=== PATIENT | male | born 1960 | race African-American/Black ===

== ENCOUNTER 2016-10-27 11:08 | Inpatient (IN) | payer OTHER ==
[2016-10-27 12:24] VITALS: BMI 25.8
--- NOTE | 2016-10-27 13:10 | HP ---
CIWA Score - CIWA Score Nausea/Vomitin-No Nausea/No Vomiting Muscle Tremors: 4-Moderate,w/Arms Extend Anxiety: 4-Mod. Anxious/Guarded Agitation: 4-Moderately Restless Paroxysmal Sweats: 1-Minimal Palms Moist Orientation: 0-Oriented Tacttile Disturbances: 3-Moderate Itch/Numb/Burn Auditory Disturbances: 0-None Visual Disturbances: 0-None Headache: 2-Mild CIWA-Ar Total Score: 18 Admission ROS BHS - HPI Chief Complaint: DETOX TX FOR ALCOHOL DEPENDENCE Allergies/Adverse Reactions: Allergies Allergy/AdvReac Type Severity Reaction Status Date / Time No Known Allergies Allergy Verified 10/27/16 12:32 History of Present Illness: 55 Y/O AA/MALE WITH A HX OF ALCOHOL DEPENDENCE SEEKING DETOX TX. PT'S FIRST TIME HERE. Exam Limitations: No Limitations - Ebola screening Have you traveled outside of the country in the last 21 days: No Have you had contact with anyone from an Ebola affected area: No Have you been sick,other than usual withdrawal symptoms: No Do you have a fever: No - Review of Systems Constitutional: Chills, Night Sweats, Changes in sleep EENT: reports: Blurred Vision, Nose Congestion (ALLERGIES--OTC MED), Dental Problems (MISSING TEETH) Respiratory: reports: No Symptoms reported Cardiac: reports: Lightheadedness GI: reports: Diarrhea, Nausea, Vomiting, Indigestion (NO MED) : reports: Frequency Musculoskeletal: reports: Back Pain, Joint Pain, Muscle Pain Integumentary: reports: No Symptoms Reported Neuro: reports: Headache, Tremors, Unsteady Gait, Dizziness Endocrine: reports: No Symptoms Reported Hematology: reports: No Symptoms Reported Psychiatric: reports: Orientated x3, Anxious Other Systems: Reviewed and Negative Patient History - Patient Medical History Hx Anemia: No Hx Asthma: No Hx Chronic Obstructive Pulmonary Disease (COPD): No Hx Cardiac Disorders: No Hx Hypertension: Yes (ON HCTZ) Hx Hypercholesterolemia: No HX Cerebrovascular Accident: No Hx Seizures: No Hx Diabetes: No Hx Gastrointestinal Disorders: Yes (HEARTBURN ON/OFF) Hx Genitourinary Disorders: No Hx Sexually Transmitted Disorders: No (DENIES) Hx Renal Disease (ESRD): No Hx Thyroid Disease: No Hx Human Immunodeficiency Virus (HIV): No (NEGATIVE HX) Hx Hepatitis C: No Hx Depression: No Hx Suicide Attempt: No (DENIES) Hx Schizophrenia: No - Patient Surgical History Past Surgical History: No Hx Neurologic Surgery: No Hx Cataract Extraction: No Hx Cardiac Surgery: No Hx Lung Surgery: No Hx Breast Surgery: No Hx Breast Biopsy: No Hx Abdominal Surgery: No Hx Appendectomy: No Hx Cholecystectomy: No Hx Genitourinary Surgery: No Hx Orthopedic Surgery: No Anesthesia Reaction: No - PPD History Previous Implant?: Yes (HX PPD+ WITH TX -INH FOR 9 MONTHS) Documented Results: Positive w/o proof Implanted On Prior R Admission?: No Results: CXR TBD PPD to be Administered?: No - Reproductive History Patient is a Female of Child Bearing Age (11 -55 yrs old): No (MALE) - Smoking Cessation Smoking history: Current every day smoker Have you smoked in the past 12 months: Yes Aproximately how many cigarettes per day: 10 Hx Chewing Tobacco Use: No Initiated information on smoking cessation: Yes 'Breaking Loose' booklet given: 10/27/16 - Substance & Tx. History Hx Alcohol Use: Yes (VODKA/BEER) Hx Substance Use: Yes (HEROIN) Substance Use Type: Alcohol, Heroin (NEGATIVE TOXICOLOGY TODAY.) Hx Substance Use Treatment: Yes - Substances Abused Heroin Route: Inhalation Frequency: Daily Amount used: 5-6 BAGS Age of first use: 23 Date of Last Use: 10/26/16 Alcohol Route: Oral Frequency: Daily Amount used: 2-3 PINTS/ 2 6PKS BEER Age of first use: 14 Date of Last Use: 10/27/16 Family Disease History - Family Disease History Family Disease History: Other: Father (HTN-), Mother (HTN-) Admission Physical Exam S - Vital Signs Vital Signs: Vital Signs - 24 hr 10/27/16 12:20 Temperature 96.4 F L Pulse Rate 115 H Respiratory 20 Rate Blood Pressure 125/85 - Physical General Appearance: Yes: Moderate Distress, Alcohol on Breath, Irritable, Anxious HEENTM: Yes: EOMI, Normocephalic, LIEN, Pharynx Normal Respiratory: Yes: Chest Non-Tender, Lungs Clear, Normal Breath Sounds, No Respiratory Distress Breast: Yes: Breast Exam Deferred Cardiology: Yes: Regular Rhythm, Regular Rate, S1, S2 Abdominal: Yes: Normal Bowel Sounds, Non Tender, Soft Genitourinary: Yes: Other (N/C) Back: Yes: Within Normal Limits Musculoskeletal: Yes: full range of Motion, Gait Steady Neurological: Yes: metal welder II-XII NML intact, Fully Oriented, Alert Integumentary: Yes: Dry, Warm Lymphatic: Yes: Within Normal Limits - Diagnostic (1) Alcohol dependence with uncomplicated withdrawal Current Visit: Yes Status: Acute (2) Hypertension Current Visit: Yes Status: Acute Qualifiers: Hypertension type: essential hypertension Qualified Code(s): I10 - Essential (primary) hypertension Cleared for Admission [facility] - Detox or Rehab [facility] Level of Care: Medically Managed Detox Regimen/Protocol: Librium [facility] Breath Alcohol Content Breath Alcohol Content: 0 Urine Drug Screen - Results Drug Screen Negative: No Urine Drug Screen Results: BZO-Benzodiazepines
[2016-10-27] MEDS ORDERED: MAG HYDROX/AL HYDROX/SIMETH 30 ML UNIT-DOSE CUP PO PRN (13:19)
[2016-10-27] MEDS ORDERED: MENTHOL/PHENOL 1 EACH UD MM PRN (13:19)
[2016-10-27] MEDS ORDERED: MAGNESIUM CITRATE 300 ML BOTTLE PO PRN (13:19)
[2016-10-27] MEDS ORDERED: P-EPHED 60MG/TRIPROLIDI 2.5MG TABLET PO PRN (13:19)
[2016-10-27] MEDS ORDERED: LOPERAMIDE HCL 2 MG CAPSULE PO PRN (13:19)
[2016-10-27] MEDS ORDERED: guaiFENesin/D-METHORPHAN HB 10 ML UNIT-DOSE CUPS PO PRN (13:19)
[2016-10-27] MEDS ORDERED: MAGNESIUM HYDROX 2400MG/30ML ORAL SUSPENSION 30 ML CUP PO PRN (13:19)
[2016-10-27] MEDS ORDERED: NICOTINE POLACRILEX 2 MG GUM BUC PRN (13:19)
[2016-10-27] MEDS ORDERED: chlordiazePOXIDE HCL 25 MG CAPSULE PO ONE (14:15)
[2016-10-27] MEDS: IBUPROFEN 400 MG TABLET (FP) PO PRN (15:05)
[2016-10-27] MEDS: NICOTINE 14 MG/24 HOURS TOPICAL PATCH TD SCH (15:19)
[2016-10-27] MEDS: chlordiazePOXIDE HCL 25 MG CAPSULE PO SCH ×2 (18:27→23:05)
[2016-10-27 19:25] LABS: URINE APPEARANCE CLEAR; URINE BILIRUBIN NEGATIVE (NEGATIVE); URINE BLOOD NEGATIVE (NEGATIVE); URINE COLOR YELLOW; URINE GLUCOSE (UA) 3+ (NEGATIVE); URINE KETONE NEGATIVE (NEGATIVE); URINE LEUK ESTERASE NEGATIVE (NEGATIVE); URINE NITRITE NEGATIVE (NEGATIVE); URINE PROTEIN NEGATIVE (NEGATIVE); URINE UROBILINOGEN NEGATIVE E.U./dl (0.2-1.0)
[2016-10-27] MEDS: THIAMINE HCL 100 MG TABLET (FP) PO SCH (23:05)
[2016-10-27] MEDS: diphenhydrAMINE HCL 50 MG CAPSULE PO PRN (23:06)
[2016-10-28] MEDS: chlordiazePOXIDE HCL 25 MG CAPSULE PO SCH ×4 (05:38→22:39)
[2016-10-28 10:13] LABS: MCH 33.5 pg (25.7-33.7); MCHC 34.1 g/dl (32.0-35.9); MEAN CELL VOLUME 98.3 fl (80-96); MEAN PLT VOLUME 9.8 fl (7.5-11.1); PLATELET COUNT 198 K/MM3 (134-434); RDW 13.7 % (11.9-15.9); WHITE BLOOD COUNT 8.9 K/mm3 (4.0-10.0)
--- NOTE | 2016-10-28 10:24 | EKG ---
Test Reason : Blood Pressure : / mmHG Vent. Rate : 102 BPM Atrial Rate : 102 BPM P-R Int : 136 ms QRS Dur : 072 ms QT Int : 332 ms P-R-T Axes : 059 -46 032 degrees QTc Int : 432 ms SINUS TACHYCARDIA POSSIBLE LEFT ATRIAL ENLARGEMENT LEFT ANTERIOR FASCICULAR BLOCK INFERIOR INFARCT , AGE UNDETERMINED POSSIBLE ANTERIOR INFARCT , AGE UNDETERMINED ABNORMAL ECG NO PREVIOUS ECGS AVAILABLE Confirmed by SONYA GILL, ELVIS ([id number]) on 10/28/2016 10:24:46 AM Referred By: Confirmed By:ELVIS HASSAN MD
[2016-10-28] MEDS: PRENATAL VITAMINS W/ FOLIC ACID TABLET (FP) PO SCH (10:56)
[2016-10-28] MEDS: NICOTINE 14 MG/24 HOURS TOPICAL PATCH TD SCH (10:56)
[2016-10-28 11:02] LABS: ALK PHOS 82 U/L (45-117); ANION GAP 11 (8-16); BILIRUBIN,TOTAL 0.4 mg/dL (0.2-1.0); CALCIUM 9.9 mg/dL (8.5-10.1); CO2 25 mmol/L (21-32); COCKROFT - GAULT 108.35; CREATININE 0.8 mg/dL (0.7-1.3); GLUCOSE,RANDOM 97 mg/dL (74-106); SGOT/AST 32 U/L (15-37); SGPT/ALT 36 U/L (12-78); TOT PROT 7.2 g/dl (6.4-8.2)
--- NOTE | 2016-10-28 11:48 | PN ---
[facility] CIWA - CIWA Score Nausea/Vomitin-No Nausea/No Vomiting Muscle Tremors: 4-Moderate,w/Arms Extend Anxiety: 3 Agitation: 3 Paroxysmal Sweats: 3 Orientation: 0-Oriented Tacttile Disturbances: 0-None Auditory Disturbances: 0-None Visual Disturbances: 0-None Headache: 0-None Present CIWA-Ar Total Score: 13 BHS Progress Note (SOAP) Subjective: agitation anxiety sweats shakes interrupted sleep Objective: 10/28/16 11:47 Vital Signs Temperature 97.2 F L 10/28/16 09:46 Pulse Rate 102 H 10/28/16 09:46 Respiratory Rate 18 10/28/16 09:46 Blood Pressure 140/97 10/28/16 09:46 O2 Sat by Pulse Oximetry (%) Laboratory Tests 10/27/16 10/28/16 10/28/16 15:00 06:00 06:00 WBC 8.9 RBC 4.10 Hgb 13.8 Hct 40.3 MCV 98.3 H MCHC 34.1 RDW 13.7 Plt Count 198 MPV 9.8 Sodium 142 Potassium 4.3 Chloride 106 Carbon Dioxide 25 Anion Gap 11 BUN 14 Creatinine 0.8 Creat Clearance w eGFR > 60 Random Glucose 97 Calcium 9.9 Total Bilirubin 0.4 AST 32 ALT 36 Alkaline Phosphatase 82 Total Protein 7.2 Albumin 4.0 Urine Color Yellow Urine Appearance Clear Urine pH 5.0 Ur Specific [place] 1.020 Urine Protein Negative Urine Glucose (UA) 3+ H Urine Ketones Negative Urine Blood Negative Urine Nitrite Negative Urine Bilirubin Negative Urine Urobilinogen Negative Ur Leukocyte Esterase Negative RPR Titer 10/28/16 06:00 WBC RBC Hgb Hct MCV MCHC RDW Plt Count MPV Sodium Potassium Chloride Carbon Dioxide Anion Gap BUN Creatinine Creat Clearance w eGFR Random Glucose Calcium Total Bilirubin AST ALT Alkaline Phosphatase Total Protein Albumin Urine Color Urine Appearance Urine pH Ur Specific [place] Urine Protein Urine Glucose (UA) Urine Ketones Urine Blood Urine Nitrite Urine Bilirubin Urine Urobilinogen Ur Leukocyte Esterase RPR Titer Nonreactive awake/alert ambulating no acute distress Assessment: 10/28/16 11:47 withdrawal sx Plan: continue detox increase fluids
[2016-10-28 12:59] LABS: SICKLE CELL SCREEN NEGATIVE (NEGATIVE)
[2016-10-28] MEDS: chlordiazePOXIDE HCL 25 MG CAPSULE PO PRN ×2 (13:34→18:55)
[2016-10-28] MEDS: LISINOPRIL 5 MG TABLET (FP) PO SCH (14:22)
[2016-10-28] MEDS: HYDROCHLOROTHIAZIDE 12.5 MG CAPSULE (FP) PO SCH (14:23)
[2016-10-28] MEDS: ASPIRIN 81 MG CHEWABLE TABLETS PO SCH (14:23)
[2016-10-28] MEDS: ACETAMINOPHEN 325 MG TABLET (FP) PO PRN (17:25)
[2016-10-28] MEDS: THIAMINE HCL 100 MG TABLET (FP) PO SCH (22:37)
[2016-10-28] MEDS: diphenhydrAMINE HCL 50 MG CAPSULE PO PRN (22:39)
[2016-10-28] MEDS: ATORVASTATIN CA 40 MG TABLET (FP) PO SCH (22:39)
[2016-10-29] MEDS: chlordiazePOXIDE HCL 25 MG CAPSULE PO SCH ×2 (05:38→11:05)
[2016-10-29] MEDS: IBUPROFEN 400 MG TABLET (FP) PO PRN ×2 (05:43→18:07)
[2016-10-29] MEDS: ACETAMINOPHEN 325 MG TABLET (FP) PO PRN (09:14)
[2016-10-29] MEDS ORDERED: CYCLOBENZAPRINE HCL 10 MG TABLET (FP) PO ONE (09:52)
[2016-10-29] MEDS: ASPIRIN 81 MG CHEWABLE TABLETS PO SCH (11:05)
[2016-10-29] MEDS: METOPROLOL SUCCINATE 50 MG TAB.SR.24H (FP) PO SCH (11:05)
[2016-10-29] MEDS: LISINOPRIL 5 MG TABLET (FP) PO SCH (11:05)
[2016-10-29] MEDS: PRENATAL VITAMINS W/ FOLIC ACID TABLET (FP) PO SCH (11:05)
[2016-10-29] MEDS: HYDROCHLOROTHIAZIDE 12.5 MG CAPSULE (FP) PO SCH (11:05)
[2016-10-29] MEDS: NICOTINE 14 MG/24 HOURS TOPICAL PATCH TD SCH (11:06)
[2016-10-29] MEDS: cloNIDine HCL 0.1 MG TABLET PO SCH ×2 (11:07→22:16)
--- NOTE | 2016-10-29 11:17 | PN ---
[facility] CIWA - CIWA Score Nausea/Vomitin Muscle Tremors: 3 Anxiety: 3 Agitation: 2 Paroxysmal Sweats: 1-Minimal Palms Moist Orientation: 0-Oriented Tacttile Disturbances: 1-Very Mild Itch/Numbness Auditory Disturbances: 1-Very Mild Visual Disturbances: 1-Very Mild Sensitivity Headache: 2-Mild CIWA-Ar Total Score: 17 BHS Progress Note (SOAP) Subjective: ALERT,IRRITABLE,ANXIOUS,INTERRUPTED SLEEP,TREMOR,PAIN IN THE BODY AND BACK Objective: 10/29/16 11:15 Vital Signs Temperature 98.1 F 10/29/16 09:29 Pulse Rate 116 H 10/29/16 09:29 Respiratory Rate 20 10/29/16 09:29 Blood Pressure 144/91 10/29/16 09:29 O2 Sat by Pulse Oximetry (%) Laboratory Last Values WBC 8.9 K/mm3 (4.0-10.0) 10/28/16 06:00 RBC 4.10 M/mm3 (4.00-5.60) 10/28/16 06:00 Hgb 13.8 GM/dL (11.7-16.9) 10/28/16 06:00 Hct 40.3 % (35.4-49) 10/28/16 06:00 MCV 98.3 fl (80-96) H 10/28/16 06:00 MCHC 34.1 g/dl (32.0-35.9) 10/28/16 06:00 RDW 13.7 % (11.9-15.9) 10/28/16 06:00 Plt Count 198 K/MM3 (134-434) 10/28/16 06:00 MPV 9.8 fl (7.5-11.1) 10/28/16 06:00 Sickle Cell Screen Negative (NEGATIVE) 10/28/16 06:00 Sodium 142 mmol/L (136-145) 10/28/16 06:00 Potassium 4.3 mmol/L (3.5-5.1) 10/28/16 06:00 Chloride 106 mmol/L (98-107) 10/28/16 06:00 Carbon Dioxide 25 mmol/L (21-32) 10/28/16 06:00 Anion Gap 11 (8-16) 10/28/16 06:00 BUN 14 mg/dL (7-18) 10/28/16 06:00 Creatinine 0.8 mg/dL (0.7-1.3) 10/28/16 06:00 Creat Clearance w eGFR > 60 (>60) 10/28/16 06:00 Random Glucose 97 mg/dL (74-106) 10/28/16 06:00 Calcium 9.9 mg/dL (8.5-10.1) 10/28/16 06:00 Total Bilirubin 0.4 mg/dL (0.2-1.0) 10/28/16 06:00 AST 32 U/L (15-37) 10/28/16 06:00 ALT 36 U/L (12-78) 10/28/16 06:00 Alkaline Phosphatase 82 U/L (45-117) 10/28/16 06:00 Total Protein 7.2 g/dl (6.4-8.2) 10/28/16 06:00 Albumin 4.0 g/dl (3.4-5.0) 10/28/16 06:00 Urine Color Yellow 10/27/16 15:00 Urine Appearance Clear 10/27/16 15:00 Urine pH 5.0 (5.0-8.0) 10/27/16 15:00 Ur Specific [place] 1.020 (1.005-1.025) 10/27/16 15:00 Urine Protein Negative (NEGATIVE) 10/27/16 15:00 Urine Glucose (UA) 3+ (NEGATIVE) H 10/27/16 15:00 Urine Ketones Negative (NEGATIVE) 10/27/16 15:00 Urine Blood Negative (NEGATIVE) 10/27/16 15:00 Urine Nitrite Negative (NEGATIVE) 10/27/16 15:00 Urine Bilirubin Negative (NEGATIVE) 10/27/16 15:00 Urine Urobilinogen Negative E.U./dl (0.2-1.0) 10/27/16 15:00 Ur Leukocyte Esterase Negative (NEGATIVE) 10/27/16 15:00 RPR Titer Nonreactive (NONREACTIVE) 10/28/16 06:00 Assessment: 10/29/16 11:16 WITHDRAWAL SYMPTOM Plan: CONTINUE DETOX
[2016-10-29] MEDS: chlordiazePOXIDE 5 MG CAPSULE PO SCH ×2 (18:06→22:17)
[2016-10-29] MEDS: THIAMINE HCL 100 MG TABLET (FP) PO SCH (22:16)
[2016-10-29] MEDS: ATORVASTATIN CA 40 MG TABLET (FP) PO SCH (22:16)
[2016-10-29] MEDS: CYCLOBENZAPRINE HCL 10 MG TABLET (FP) PO PRN (22:17)
[2016-10-29] MEDS: diphenhydrAMINE HCL 50 MG CAPSULE PO PRN (22:17)
[2016-10-30] MEDS: chlordiazePOXIDE 5 MG CAPSULE PO SCH ×2 (06:02→11:06)
[2016-10-30] MEDS: CYCLOBENZAPRINE HCL 10 MG TABLET (FP) PO PRN ×2 (06:06→11:04)
[2016-10-30] MEDS: IBUPROFEN 400 MG TABLET (FP) PO PRN ×2 (06:07→15:28)
[2016-10-30] MEDS: PRENATAL VITAMINS W/ FOLIC ACID TABLET (FP) PO SCH (11:04)
[2016-10-30] MEDS: cloNIDine HCL 0.1 MG TABLET PO SCH ×2 (11:04→22:07)
[2016-10-30] MEDS: ASPIRIN 81 MG CHEWABLE TABLETS PO SCH (11:04)
[2016-10-30] MEDS: NICOTINE 14 MG/24 HOURS TOPICAL PATCH TD SCH (11:05)
[2016-10-30] MEDS: HYDROCHLOROTHIAZIDE 12.5 MG CAPSULE (FP) PO SCH (11:05)
[2016-10-30] MEDS: LISINOPRIL 5 MG TABLET (FP) PO SCH (11:05)
[2016-10-30] MEDS: METOPROLOL SUCCINATE 50 MG TAB.SR.24H (FP) PO SCH (11:07)
--- NOTE | 2016-10-30 11:12 | PN ---
S Progress Note (SOAP) Subjective: ALERT,IRRITABLE,ANXIOUS,INTERRUPTED SLEEP Objective: 10/30/16 11:11 Vital Signs Temperature 98.1 F 10/30/16 10:27 Pulse Rate 102 H 10/30/16 10:27 Respiratory Rate 18 10/30/16 10:27 Blood Pressure 125/90 10/30/16 10:27 O2 Sat by Pulse Oximetry (%) Assessment: 10/30/16 11:11 WITHDRAWAL SYMPTOM Plan: CONTINUE DETOX
[2016-10-30] MEDS: ACETAMINOPHEN 325 MG TABLET (FP) PO PRN (13:23)
[2016-10-30] MEDS: chlordiazePOXIDE HCL 10 MG CAPSULE PO SCH ×2 (20:33→22:07)
[2016-10-30] MEDS: ATORVASTATIN CA 40 MG TABLET (FP) PO SCH (22:07)
[2016-10-30] MEDS: THIAMINE HCL 100 MG TABLET (FP) PO SCH (22:07)
[2016-10-31] MEDS: chlordiazePOXIDE HCL 10 MG CAPSULE PO SCH (05:52)
[2016-10-31] MEDS: IBUPROFEN 400 MG TABLET (FP) PO PRN (05:53)
--- NOTE | 2016-10-31 09:14 | PN ---
S Progress Note (SOAP) Subjective: ALERT,NO COMPLAINT Objective: 10/31/16 09:11 Vital Signs Temperature 96.4 F L 10/31/16 06:00 Pulse Rate 95 H 10/31/16 06:00 Respiratory Rate 18 10/31/16 06:00 Blood Pressure 137/87 10/31/16 06:00 O2 Sat by Pulse Oximetry (%) 10/31/16 09:13 Assessment: 10/31/16 09:11 DETOX COMPLETED.NO WITHDRAWAL SYMPTOM 10/31/16 09:13 Plan: DISCHARGE TODAY,FOLLOW UP WITH AFTER CARE PROGRAM ARRANGEMENT
--- NOTE | 2016-10-31 09:17 | DS ---
[facility] Detox Discharge Summary Admission Date: 10/27/16 Discharge Date: 10/31/16 - History Present History: Alcohol Dependence, Cocaine Dependence, Opioid Dependence Additional Comments: FOLLOW UP WITH AFTER CARE PROGRAM ARRANGEMENT Pertinent Past History: HYPERTENSION - Physical Exam Results Vital Signs: Vital Signs Temperature 96.4 F L 10/31/16 06:00 Pulse Rate 95 H 10/31/16 06:00 Respiratory Rate 18 10/31/16 06:00 Blood Pressure 137/87 10/31/16 06:00 O2 Sat by Pulse Oximetry (%) Pertinent Admission Physical Exam Findings: WITHDRAWAL SYMPTOM - Treatment Hospital Course: Detox Protocol Followed, Detoxed Safely, Responded well, Discharged Condition Good Patient has Accepted a Rehab Referral to: DECLINED - Medication Discharge Medications: Ambulatory Orders Hydrochlorothiazide [Hctz -] 12.5 mg PO DAILY 10/27/16 - AMA Did Patient Leave Against Medical Advice: No
[2016-10-31 10:55] VITALS: BP 128/88; PULSE 96; TEMP 97.3
== END 2016-10-31 10:15 | disposition home or self-care (01) | DRG 773 ==
LOC: YASAS 11:08 → Y6N 14:12
PROVIDERS: ADMIT Internal Medicine Addiction Medicine; ATTEND Internal Medicine Addiction Medicine
PROC: HZ2ZZZZ Detoxification Services for Substance Abuse Treatment (ICD-10-PCS; principal; 2016-10-31)
DX: F11.23 Opioid dependence with withdrawal (principal); F10.230 Alcohol dependence with withdrawal, uncomplicated; I10 Essential (primary) hypertension; R76.11 Nonspecific reaction to tuberculin skin test without active tuberculosis
CPT/HCPCS: 36415; 71020-TC; 80053; 81003; 85027; 85660; 86593; 93005; 93010

== ENCOUNTER 2016-12-01 14:01 | Inpatient (IN) | payer OTHER ==
[2016-12-01 15:17] VITALS: BMI 24.2
--- NOTE | 2016-12-01 16:13 | HP ---
COWS - Scale Resting Pulse: 2= [place] 101-120 Sweatin=Flushed/Facial Moisture Restless Observation: 3= Extraneous Movement Pupil Size: 2= Moderately Dilated Bone or Joint Aches: 2= Severe Diffuse Aches Runny Nose/ Eye Tearin= Runny Nose/Eyes GI Upset > 30mins: 3= Vomiting/Diarrhea Tremor Observation: 2= Slight Tremor Visible Yawning Observation: 2= >3x During Session Anxiety or Irritability: 2=Irritable/Anxious Goose Flesh Skin: 0=Smooth Skin COWS Score: 22 CIWA Score - CIWA Score Nausea/Vomitin Muscle Tremors: 3 Anxiety: 3 Agitation: 3 Paroxysmal Sweats: 2 Orientation: 0-Oriented Tacttile Disturbances: 2-Mild Itch/Numbness/Burn Auditory Disturbances: 2-Mild Harshness/Frighten Visual Disturbances: 2-Mild Sensitivity Headache: 2-Mild CIWA-Ar Total Score: 22 Admission ROS BHS - HPI Chief Complaint: i need help to stop using heroin and alcohol Allergies/Adverse Reactions: Allergies Allergy/AdvReac Type Severity Reaction Status Date / Time No Known Allergies Allergy Verified 12/01/16 16:12 History of Present Illness: thid 55 years old male with heroin and alcohol dependence,seeking detox,last treatment 10/27/16 to 10/31/16 [facility] syncope htn longest period sobriety 12 years Exam Limitations: No Limitations - Ebola screening Have you traveled outside of the country in the last 21 days: No Have you had contact with anyone from an Ebola affected area: No Have you been sick,other than usual withdrawal symptoms: No Do you have a fever: No - Review of Systems Constitutional: Chills, Diaphoresis, Loss of Appetite, Malaise, Night Sweats, Changes in sleep, Weakness, Unintentional Wgt. Loss EENT: reports: Tearing, Nose Congestion Respiratory: reports: No Symptoms reported Cardiac: reports: Palpitations GI: reports: Diarrhea, Nausea, Vomiting, Abdominal cramping : reports: No Symptoms Reported Musculoskeletal: reports: Back Pain, Joint Pain, Muscle Pain, Joint Stiffness Integumentary: reports: Dryness Neuro: reports: Headache, Tremors Endocrine: reports: No Symptoms Reported Hematology: reports: No Symptoms Reported Psychiatric: reports: Depressed (insomnia,depression) Patient History - Patient Medical History Hx Anemia: No Hx Asthma: No Hx Chronic Obstructive Pulmonary Disease (COPD): No Hx Cardiac Disorders: No Hx Hypertension: Yes (ON HCTZ) Hx Hypercholesterolemia: No HX Cerebrovascular Accident: No Hx Seizures: No Hx Diabetes: No Hx Gastrointestinal Disorders: Yes (HEARTBURN ON/OFF) Hx Genitourinary Disorders: No Hx Sexually Transmitted Disorders: No (DENIES) Hx Renal Disease (ESRD): No Hx Thyroid Disease: No Hx Human Immunodeficiency Virus (HIV): No (NEGATIVE HXlast 08/28) Hx Hepatitis C: No Hx Depression: No Hx Suicide Attempt: No (DENIES) Hx Bipolar Disorder: No Hx Schizophrenia: No Other Medical History: no suicidal,no homicidal - Patient Surgical History Past Surgical History: Yes Hx Neurologic Surgery: No Hx Cataract Extraction: No Hx Cardiac Surgery: No Hx Lung Surgery: No Hx Breast Surgery: No Hx Breast Biopsy: No Hx Abdominal Surgery: No Hx Appendectomy: No Hx Cholecystectomy: No Hx Genitourinary Surgery: No Hx Orthopedic Surgery: No Other Surgical History: incioin and drainage of abscess of right groin Anesthesia Reaction: No - PPD History Previous Implant?: Yes Documented Results: Positive w/proof Results: CXR TBD PPD to be Administered?: No - Smoking Cessation Smoking history: Current every day smoker Have you smoked in the past 12 months: Yes Aproximately how many cigarettes per day: 10 Hx Chewing Tobacco Use: No Initiated information on smoking cessation: Yes 'Breaking Loose' booklet given: 12/01/16 - Substance & Tx. History Hx Alcohol Use: Yes Hx Substance Use: Yes Substance Use Type: Alcohol, Heroin Hx Substance Use Treatment: Yes ([facility] 10/27/16 to 10/31/16) - Substances Abused Heroin Route: Inhalation Frequency: Daily Amount used: 3-4 BAGS Age of first use: 36 Date of Last Use: 11/30/16 Alcohol Route: Oral Frequency: Daily Amount used: 2 6PKS BEER/2 PINTS VODKA Age of first use: 36 Date of Last Use: 12/01/16 Family Disease History - Family Disease History Family Disease History: Other: Father (HTN-), Mother (HTN-) Admission Physical Exam BHS - Vital Signs Vital Signs: Vital Signs - 24 hr 12/01/16 15:15 Temperature 97 F L Pulse Rate 110 H Respiratory 20 Rate Blood Pressure 142/88 - Physical General Appearance: Yes: Moderate Distress, Tremorous, Irritable, Sweating, Anxious HEENTM: Yes: Hearing grossly Normal, Normal ENT Inspection, Pharynx Normal Respiratory: Yes: Lungs Clear, Normal Breath Sounds, No Respiratory Distress Neck: Yes: Within Normal Limits, Supple, Trachea in good position Breast: Yes: Within Normal Limits Cardiology: Yes: Tachycardia Abdominal: Yes: Within Normal Limits, Normal Bowel Sounds, Non Tender, Flat, Soft Genitourinary: Yes: Within Normal Limits Back: Yes: Within Normal Limits, Decreased Range of Motion, Muscle Spasm Musculoskeletal: Yes: full range of Motion, Back pain, Joint Stiffness, Muscle Pain Extremities: Yes: Within Normal Limits, Normal Range of Motion, Tremors Neurological: Yes: attraction worker II-XII NML intact, Fully Oriented, Alert, Motor Strength 5/5 Integumentary: Yes: Dry Lymphatic: Yes: Within Normal Limits - Diagnostic (1) Alcohol dependence with uncomplicated withdrawal Current Visit: No Status: Acute (2) Opioid dependence with withdrawal Current Visit: Yes Status: Acute (3) Essential hypertension Current Visit: Yes Status: Acute (4) Syncope Current Visit: Yes Status: Acute (5) Old cerebrovascular accident without late effect Current Visit: Yes Status: Acute (6) Old [place] (myocardial infarction) Current Visit: Yes Status: Acute (7) Positive PPD, treated Current Visit: Yes Status: Acute Cleared for Admission [facility] - Detox or Rehab [facility] Level of Care: Medically Managed Detox Regimen/Protocol: Methadone/Librium [facility] Breath Alcohol Content Breath Alcohol Content: 0.299 Urine Drug Screen - Results Drug Screen Negative: No Urine Drug Screen Results: OPI-Opiates, BZO-Benzodiazepines
[2016-12-01] MEDS ORDERED: MENTHOL/PHENOL 1 EACH UD MM PRN (16:32)
[2016-12-01] MEDS ORDERED: P-EPHED 60MG/TRIPROLIDI 2.5MG TABLET PO PRN (16:32)
[2016-12-01] MEDS ORDERED: guaiFENesin/D-METHORPHAN HB 10 ML UNIT-DOSE CUPS PO PRN (16:32)
[2016-12-01] MEDS ORDERED: LOPERAMIDE HCL 2 MG CAPSULE PO PRN (16:32)
[2016-12-01] MEDS ORDERED: hydrOXYzine PAMOATE 50 MG CAPSULE (FP) PO PRN (16:32)
[2016-12-01] MEDS ORDERED: MAGNESIUM HYDROX 2400MG/30ML ORAL SUSPENSION 30 ML CUP PO PRN (16:32)
[2016-12-01] MEDS ORDERED: MAGNESIUM CITRATE 300 ML BOTTLE PO PRN (16:32)
[2016-12-01] MEDS ORDERED: MAG HYDROX/AL HYDROX/SIMETH 30 ML UNIT-DOSE CUP PO PRN (16:32)
[2016-12-01] MEDS ORDERED: METHADONE HCL 10 MG TABLET (FOR DETOX USE ONLY) PO ONE ×2 (18:15→23:00)
[2016-12-01] MEDS ORDERED: chlordiazePOXIDE HCL 25 MG CAPSULE PO ONE (18:15)
[2016-12-01] MEDS: IBUPROFEN 400 MG TABLET (FP) PO PRN (19:20)
[2016-12-01] MEDS: NICOTINE 21 MG/24 HOURS TOPICAL PATCH TD SCH (19:21)
[2016-12-01] MEDS: chlordiazePOXIDE HCL 25 MG CAPSULE PO SCH (22:12)
[2016-12-01] MEDS: THIAMINE HCL 100 MG TABLET (FP) PO SCH (22:12)
[2016-12-01] MEDS: diphenhydrAMINE HCL 50 MG CAPSULE PO PRN (22:12)
[2016-12-01] MEDS: ACETAMINOPHEN 325 MG TABLET (FP) PO PRN (23:57)
[2016-12-02] MEDS: chlordiazePOXIDE HCL 25 MG CAPSULE PO SCH ×4 (05:22→22:21)
[2016-12-02 07:56] LABS: URINE APPEARANCE CLEAR; URINE BILIRUBIN NEGATIVE (NEGATIVE); URINE BLOOD NEGATIVE (NEGATIVE); URINE COLOR YELLOW; URINE GLUCOSE (UA) NEGATIVE (NEGATIVE); URINE KETONE NEGATIVE (NEGATIVE); URINE LEUK ESTERASE NEGATIVE (NEGATIVE); URINE NITRITE NEGATIVE (NEGATIVE); URINE PROTEIN NEGATIVE (NEGATIVE); URINE UROBILINOGEN NEGATIVE E.U./dl (0.2-1.0)
[2016-12-02 09:51] LABS: MCH 33.8 pg (25.7-33.7); MCHC 33.5 g/dl (32.0-35.9); MEAN CELL VOLUME 100.9 fl (80-96); PLATELET COUNT 155 K/MM3 (134-434); RDW 15.4 % (11.9-15.9); WHITE BLOOD COUNT 4.3 K/mm3 (4.0-10.0)
[2016-12-02] MEDS ORDERED: METHADONE HCL 10 MG TABLET (FOR DETOX USE ONLY) PO SCH (10:00)
[2016-12-02] MEDS: NICOTINE 21 MG/24 HOURS TOPICAL PATCH TD SCH (10:12)
[2016-12-02] MEDS: PRENATAL VITAMINS W/ FOLIC ACID TABLET (FP) PO SCH (10:12)
[2016-12-02] MEDS: HYDROCHLOROTHIAZIDE 12.5 MG CAPSULE (FP) PO SCH (10:13)
[2016-12-02] MEDS: IBUPROFEN 400 MG TABLET (FP) PO PRN ×2 (10:14→17:21)
[2016-12-02 10:17] LABS: ALBUMIN 3.9 g/dl (3.4-5.0); ANION GAP 11 (8-16); BILIRUBIN,TOTAL 0.7 mg/dL (0.2-1.0); CALCIUM 8.8 mg/dL (8.5-10.1); CO2 27 mmol/L (21-32); CREATININE 0.8 mg/dL (0.7-1.3); GLUCOSE,RANDOM 94 mg/dL (74-106); SGOT/AST 28 U/L (15-37); SGPT/ALT 26 U/L (12-78)
[2016-12-02 10:18] LABS: ALK PHOS 78 U/L (45-117); TOT PROT 7.5 g/dl (6.4-8.2)
--- NOTE | 2016-12-02 11:04 | EKG ---
Test Reason : Blood Pressure : / mmHG Vent. Rate : 097 BPM Atrial Rate : 097 BPM P-R Int : 140 ms QRS Dur : 088 ms QT Int : 346 ms P-R-T Axes : 065 -53 057 degrees QTc Int : 439 ms NORMAL SINUS RHYTHM POSSIBLE LEFT ATRIAL ENLARGEMENT LEFT ANTERIOR FASCICULAR BLOCK ABNORMAL ECG WHEN COMPARED WITH ECG OF 27-OCT-2016 14:35, NO SIGNIFICANT CHANGE WAS FOUND Confirmed by ELVIS HASSAN MD ([id number]) on 12/02/2016 11:04:36 AM Referred By: Confirmed By:ELVIS HASSAN MD
--- NOTE | 2016-12-02 11:50 | PN ---
[facility] CIWA - CIWA Score Nausea/Vomitin Muscle Tremors: 4-Moderate,w/Arms Extend Anxiety: 2 Agitation: 2 Paroxysmal Sweats: 3 Orientation: 0-Oriented Tacttile Disturbances: 0-None Auditory Disturbances: 2-Mild Harshness/Frighten Visual Disturbances: 3-Moderate Sensitivity Headache: 0-None Present CIWA-Ar Total Score: 18 BHS COWS - Scale Resting Pulse: 1= [place] 81-100 Sweatin= Chills/Flushing Restless Observation: 1= Difficult to Sit Still Pupil Size: 0= Normal to Room Light Bone or Joint Aches: 2= Severe Diffuse Aches Runny Nose/ Eye Tearin= Nasal Congestion GI Upset > 30mins: 2= Nausea/Diarrhea Tremor Observation of Outstretched Hands: 2= Slight Tremor Visible Yawning Observation: 0= None Anxiety or Irritability: 2=Irritable/Anxious Goose Flesh Skin: 3=Piloerection COWS Score: 15 [facility] Progress Note (SOAP) Subjective: Diarrhea, Interrupted sleep, Tremors, Stomach Cramping, Lower Back Ache. Objective: PT. A & O X 3. NO ACUTE DISTRESS. PT. DENIES CHEST PAIN. 12/02/16 11:49 Vital Signs Temperature 97.5 F L 12/02/16 09:36 Pulse Rate 83 12/02/16 09:36 Respiratory Rate 18 12/02/16 09:36 Blood Pressure 165/105 12/02/16 09:40 O2 Sat by Pulse Oximetry (%) Laboratory Tests 12/01/16 12/02/16 12/02/16 20:30 06:00 06:00 WBC 4.3 D RBC 4.39 Hgb 14.8 Hct 44.3 MCV 100.9 H MCHC 33.5 RDW 15.4 D Plt Count 155 D MPV 10.0 Sodium 146 H Potassium 3.5 Chloride 108 H Carbon Dioxide 27 Anion Gap 11 BUN 8 D Creatinine 0.8 Creat Clearance w eGFR > 60 Random Glucose 94 Calcium 8.8 Total Bilirubin 0.7 D AST 28 ALT 26 D Alkaline Phosphatase 78 Total Protein 7.5 Albumin 3.9 Urine Color Yellow Urine Appearance Clear Urine pH 5.0 Urine Protein Negative Urine Glucose (UA) Negative Urine Ketones Negative Urine Blood Negative Urine Nitrite Negative Urine Bilirubin Negative Urine Urobilinogen Negative Ur Leukocyte Esterase Negative LABS NOTED. Assessment: 12/02/16 11:49 WITHDRAWAL SYMPTOMS. Plan: CONTINUE DETOX. START AMLODIPINE, 10 MG PO DAILY (FIRST DOSE NOW). (PATIENT PREVIOUSLY PRESCRIBED BY OUTSIDE MEDICAL PROVIDER PRIOR TO THIS ADMISSION TO DETOX). CONTINUE TO MONITOR BP.
[2016-12-02] MEDS ORDERED: amLODIPine BESYLATE 10 MG TABLET (FP) PO SCH (12:00)
--- NOTE | 2016-12-02 12:04 | CONSULT ---
[facility] Psychiatric Consult - Data Date of interview: 12/02/16 Admission source: [facility] Identifying data: Mr Painting is a 55 years old Black male, father of 7 children, unemployed on food stamp, homeless Substance Abuse History: Reports history of alcohol and heroin use. He started drinking alcohol at age 15 and using heroin at age 36, Consumes 2 pints of vodka , 2x 6pk of beer and 3-4 bags of heroin daily. Last drink on 12/01/16 & used heroin on 11/30/16 Medical History: Significant for HTN, GERD, +PPD treated, history of CVA & FL and history of surgery for I & D abscess right groin Psychiatric History: Reports that his only psychiatric treatment was in 1985 when he was admitted to [facility] for depression following the of his mother that same year. Claims that he was drinking alcohol and smoking crack cocaine around that time. Told lyric writer that he stayed at [facility] for nearly a year and treated with Coleridge and Haldol. Reports that on discharge, he was referred to substance abuse program in [facility] where he was for nearly a year. Claims that he did not receive psychiatric care while at the program. Denies history of suicidal attempt. At present, reports feeling mildly depressed due to his present situation(homelessness) and sleeping poorly Physical/Sexual Abuse/Trauma History: Denies history of emotional, physical or sexual as well as DV relationship Additional Comment: Reports history of 2 previous misdemeanor arrests on charges og drug possession. Denies being on parole/probation at present Mental Status Exam - Mental Status Exam Alert and Oriented to: Time, Place, Person Cognitive Function: Fair Patient Appearance: Well Groomed Mood: Depressed (mildly depressed because of my situation being homeless) Affect: Appropriate Patient Behavior: Cooperative Speech Pattern: Clear Voice Loudness: Normal Thought Process: Intact, Goal Oriented Hallucinations: Denies Suicidal Ideation: Denies Homicidal Ideation: Denies Insight/Judgement: Poor Sleep: Poorly Appetite: Good Muscle strength/Tone: Normal Gait/Station: Normal Psychiatric Findings - Problem List ([place] 1, 2,3) (1) Alcohol dependence with uncomplicated withdrawal Current Visit: No Status: Acute (2) Opioid dependence with withdrawal Current Visit: Yes Status: Acute (3) Nicotine dependence Current Visit: Yes Status: Acute (4) Major depressive disorder, single episode in full remission Current Visit: Yes Status: Acute (5) Substance induced mood disorder Current Visit: Yes Status: Acute (6) Essential hypertension Current Visit: Yes Status: Acute (7) Old [place] (myocardial infarction) Current Visit: Yes Status: Acute (8) Old cerebrovascular accident without late effect Current Visit: Yes Status: Acute (9) Positive PPD, treated Current Visit: Yes Status: Acute - Initial Treatment Plan Initial Treatment Plan: 1) Start Ambien 10 mg po HS prn for insomnia. 2) Continue inpatient detixification
[2016-12-02] MEDS: chlordiazePOXIDE HCL 25 MG CAPSULE PO PRN ×2 (13:26→19:04)
[2016-12-02] MEDS: amLODIPine BESYLATE 10 MG TABLET (FP) PO SCH (13:26)
[2016-12-02] MEDS: ACETAMINOPHEN 325 MG TABLET (FP) PO PRN (19:02)
[2016-12-02] MEDS: THIAMINE HCL 100 MG TABLET (FP) PO SCH (22:21)
[2016-12-02] MEDS: diphenhydrAMINE HCL 50 MG CAPSULE PO PRN (22:22)
[2016-12-02] MEDS: ZOLPIDEM TARTRATE 10 MG TABLET (PARK CARE ONLY) PO PRN (23:46)
[2016-12-03] MEDS: chlordiazePOXIDE HCL 25 MG CAPSULE PO SCH ×3 (05:47→17:17)
[2016-12-03] MEDS: IBUPROFEN 400 MG TABLET (FP) PO PRN ×3 (05:48→20:29)
[2016-12-03] MEDS: METHADONE HCL 5 MG TABLET (FOR DETOX USE ONLY) PO SCH (10:04)
[2016-12-03] MEDS: HYDROCHLOROTHIAZIDE 12.5 MG CAPSULE (FP) PO SCH (10:04)
[2016-12-03] MEDS: amLODIPine BESYLATE 10 MG TABLET (FP) PO SCH (10:04)
[2016-12-03] MEDS: PRENATAL VITAMINS W/ FOLIC ACID TABLET (FP) PO SCH (10:04)
[2016-12-03] MEDS: NICOTINE 21 MG/24 HOURS TOPICAL PATCH TD SCH (10:05)
[2016-12-03] MEDS: chlordiazePOXIDE HCL 25 MG CAPSULE PO PRN (12:49)
--- NOTE | 2016-12-03 13:17 | PN ---
[facility] CIWA - CIWA Score Nausea/Vomitin-Mild Nausea/No Vomiting Muscle Tremors: 3 Anxiety: 2 Agitation: 2 Paroxysmal Sweats: 3 Orientation: 0-Oriented Tacttile Disturbances: 0-None Auditory Disturbances: 2-Mild Harshness/Frighten Visual Disturbances: 3-Moderate Sensitivity Headache: 0-None Present CIWA-Ar Total Score: 16 [facility] COWS - Scale Resting Pulse: 0= IA 80 or Below Sweatin= Chills/Flushing Restless Observation: 1= Difficult to Sit Still Pupil Size: 0= Normal to Room Light Bone or Joint Aches: 2= Severe Diffuse Aches Runny Nose/ Eye Tearin= Nasal Congestion GI Upset > 30mins: 2= Nausea/Diarrhea Tremor Observation of Outstretched Hands: 2= Slight Tremor Visible Yawning Observation: 1= 1-2x During Session Anxiety or Irritability: 2=Irritable/Anxious Goose Flesh Skin: 3=Piloerection COWS Score: 15 [facility] Progress Note (SOAP) Subjective: Tremors, Stomach Cramping, Diarrhea, Lower Back Ache, Interrupted sleep. Objective: PT. A & O X 3. NO ACUTE DISTRESS. PT. DENIES CHEST PAIN. 12/03/16 13:18 Vital Signs Temperature 96.8 F L 12/03/16 09:46 Pulse Rate 69 12/03/16 09:46 Respiratory Rate 18 12/03/16 09:46 Blood Pressure 155/94 12/03/16 09:46 O2 Sat by Pulse Oximetry (%) Laboratory Tests 12/01/16 12/02/16 12/02/16 20:30 06:00 06:00 WBC 4.3 D RBC 4.39 Hgb 14.8 Hct 44.3 MCV 100.9 H MCHC 33.5 RDW 15.4 D Plt Count 155 D MPV 10.0 Sodium 146 H Potassium 3.5 Chloride 108 H Carbon Dioxide 27 Anion Gap 11 BUN 8 D Creatinine 0.8 Creat Clearance w eGFR > 60 Random Glucose 94 Calcium 8.8 Total Bilirubin 0.7 D AST 28 ALT 26 D Alkaline Phosphatase 78 Total Protein 7.5 Albumin 3.9 Urine Color Yellow Urine Appearance Clear Urine pH 5.0 Ur Specific [place] 1.020 Urine Protein Negative Urine Glucose (UA) Negative Urine Ketones Negative Urine Blood Negative Urine Nitrite Negative Urine Bilirubin Negative Urine Urobilinogen Negative Ur Leukocyte Esterase Negative RPR Titer 12/02/16 06:00 WBC RBC Hgb Hct MCV MCHC RDW Plt Count MPV Sodium Potassium Chloride Carbon Dioxide Anion Gap BUN Creatinine Creat Clearance w eGFR Random Glucose Calcium Total Bilirubin AST ALT Alkaline Phosphatase Total Protein Albumin Urine Color Urine Appearance Urine pH Ur Specific [place] Urine Protein Urine Glucose (UA) Urine Ketones Urine Blood Urine Nitrite Urine Bilirubin Urine Urobilinogen Ur Leukocyte Esterase RPR Titer Nonreactive LABS NOTED. Assessment: 12/03/16 13:19 WITHDRAWAL SYMPTOMS. Plan: CONTINUE DETOX. START LISINOPRIL, 5 MG PO DAILY FOR ELEVATED BP (PRESCRIBED TO PATIENT BY OUTSIDE MEDICAL PROVIDER PRIOR TO DETOX ADMISSION). CONTINUE TO MONITOR BP. ADVISED PATIENT TO FOLLOW-UP WITH [facility] AFTER DISCHARGE FROM DETOX FOR GENERAL MEDICAL ASSESSMENT AND FOR FOLLOW-UP FOR HTN.
[2016-12-03] MEDS: LISINOPRIL 5 MG TABLET (FP) PO SCH (15:01)
[2016-12-03] MEDS: THIAMINE HCL 100 MG TABLET (FP) PO SCH (22:14)
[2016-12-03] MEDS: chlordiazePOXIDE 5 MG CAPSULE PO SCH (22:15)
[2016-12-03] MEDS: ZOLPIDEM TARTRATE 10 MG TABLET (PARK CARE ONLY) PO PRN (22:15)
[2016-12-04] MEDS: diphenhydrAMINE HCL 50 MG CAPSULE PO PRN (02:00)
[2016-12-04] MEDS: chlordiazePOXIDE 5 MG CAPSULE PO SCH ×3 (05:20→17:06)
[2016-12-04] MEDS: IBUPROFEN 400 MG TABLET (FP) PO PRN ×2 (05:22→13:54)
[2016-12-04] MEDS: ACETAMINOPHEN 325 MG TABLET (FP) PO PRN (09:24)
[2016-12-04] MEDS: METHADONE HCL 5 MG TABLET (FOR DETOX USE ONLY) PO SCH (10:14)
[2016-12-04] MEDS: PRENATAL VITAMINS W/ FOLIC ACID TABLET (FP) PO SCH (10:14)
[2016-12-04] MEDS: LISINOPRIL 5 MG TABLET (FP) PO SCH (10:14)
[2016-12-04] MEDS: amLODIPine BESYLATE 10 MG TABLET (FP) PO SCH (10:14)
[2016-12-04] MEDS: HYDROCHLOROTHIAZIDE 12.5 MG CAPSULE (FP) PO SCH (10:14)
[2016-12-04] MEDS: NICOTINE 21 MG/24 HOURS TOPICAL PATCH TD SCH (10:15)
[2016-12-04] MEDS ORDERED: ONDANSETRON *ODT* 4 MG TABLET SL PRN (10:46)
--- NOTE | 2016-12-04 12:44 | PN ---
[facility] Progress Note (SOAP) Subjective: Nausea, Diarrhea, Lower Back Ache, Interrupted sleep, H/A, Sweating, Diarrhea. Objective: PT. A & O X 2 (DISORIENTED ABOUT DAY / DATE). NO ACUTE DISTRESS. 12/04/16 12:42 Vital Signs Temperature 97.9 F 12/04/16 09:47 Pulse Rate 79 12/04/16 09:47 Respiratory Rate 18 12/04/16 09:47 Blood Pressure 120/81 12/04/16 09:47 O2 Sat by Pulse Oximetry (%) Laboratory Tests 12/01/16 12/02/16 12/02/16 20:30 06:00 06:00 WBC 4.3 D RBC 4.39 Hgb 14.8 Hct 44.3 MCV 100.9 H MCHC 33.5 RDW 15.4 D Plt Count 155 D MPV 10.0 Sodium 146 H Potassium 3.5 Chloride 108 H Carbon Dioxide 27 Anion Gap 11 BUN 8 D Creatinine 0.8 Creat Clearance w eGFR > 60 Random Glucose 94 Calcium 8.8 Total Bilirubin 0.7 D AST 28 ALT 26 D Alkaline Phosphatase 78 Total Protein 7.5 Albumin 3.9 Urine Color Yellow Urine Appearance Clear Urine pH 5.0 Ur Specific [place] 1.020 Urine Protein Negative Urine Glucose (UA) Negative Urine Ketones Negative Urine Blood Negative Urine Nitrite Negative Urine Bilirubin Negative Urine Urobilinogen Negative Ur Leukocyte Esterase Negative RPR Titer 12/02/16 06:00 WBC RBC Hgb Hct MCV MCHC RDW Plt Count MPV Sodium Potassium Chloride Carbon Dioxide Anion Gap BUN Creatinine Creat Clearance w eGFR Random Glucose Calcium Total Bilirubin AST ALT Alkaline Phosphatase Total Protein Albumin Urine Color Urine Appearance Urine pH Ur Specific [place] Urine Protein Urine Glucose (UA) Urine Ketones Urine Blood Urine Nitrite Urine Bilirubin Urine Urobilinogen Ur Leukocyte Esterase RPR Titer Nonreactive LABS NOTED. Assessment: 12/04/16 12:43 WITHDRAWAL SYMPTOMS. Plan: CONTINUE DETOX.
--- NOTE | 2016-12-04 17:01 | PN ---
[facility] Progress Note Note: bp 149/95, librium 15 mg given repeat bp two hours after librium 15 mg continue detox
[2016-12-04] MEDS: chlordiazePOXIDE HCL 10 MG CAPSULE PO SCH (22:07)
[2016-12-04] MEDS: ZOLPIDEM TARTRATE 10 MG TABLET (PARK CARE ONLY) PO PRN (22:07)
[2016-12-04] MEDS: THIAMINE HCL 100 MG TABLET (FP) PO SCH (22:07)
[2016-12-05] MEDS: chlordiazePOXIDE HCL 10 MG CAPSULE PO SCH ×3 (05:32→17:18)
[2016-12-05] MEDS: ACETAMINOPHEN 325 MG TABLET (FP) PO PRN (05:32)
[2016-12-05] MEDS ORDERED: METHADONE HCL 10 MG TABLET (FOR DETOX USE ONLY) PO SCH (10:00)
[2016-12-05] MEDS: LISINOPRIL 5 MG TABLET (FP) PO SCH (10:15)
[2016-12-05] MEDS: NICOTINE 21 MG/24 HOURS TOPICAL PATCH TD SCH (10:15)
[2016-12-05] MEDS: amLODIPine BESYLATE 10 MG TABLET (FP) PO SCH (10:15)
[2016-12-05] MEDS: HYDROCHLOROTHIAZIDE 12.5 MG CAPSULE (FP) PO SCH (10:15)
[2016-12-05] MEDS: PRENATAL VITAMINS W/ FOLIC ACID TABLET (FP) PO SCH (10:15)
--- NOTE | 2016-12-05 13:56 | PN ---
[facility] Progress Note (SOAP) Subjective: Tremors, Sweating, Lower Back Ache, Interrupted sleep. Objective: PT. A & O X 2 (DISORIENTED ABOUT DAY / DATE). PT. OBSERVED AMBULATING ON UNIT. NO ACUTE DISTRESS. PATIENT DENIES CHEST PAIN. 12/05/16 13:54 Vital Signs Temperature 97.0 F L 12/05/16 13:47 Pulse Rate 87 12/05/16 13:47 Respiratory Rate 20 12/05/16 13:47 Blood Pressure 146/93 12/05/16 13:47 O2 Sat by Pulse Oximetry (%) Laboratory Tests 12/01/16 12/02/16 12/02/16 20:30 06:00 06:00 WBC 4.3 D RBC 4.39 Hgb 14.8 Hct 44.3 MCV 100.9 H MCHC 33.5 RDW 15.4 D Plt Count 155 D MPV 10.0 Sodium 146 H Potassium 3.5 Chloride 108 H Carbon Dioxide 27 Anion Gap 11 BUN 8 D Creatinine 0.8 Creat Clearance w eGFR > 60 Random Glucose 94 Calcium 8.8 Total Bilirubin 0.7 D AST 28 ALT 26 D Alkaline Phosphatase 78 Total Protein 7.5 Albumin 3.9 Urine Color Yellow Urine Appearance Clear Urine pH 5.0 Ur Specific [place] 1.020 Urine Protein Negative Urine Glucose (UA) Negative Urine Ketones Negative Urine Blood Negative Urine Nitrite Negative Urine Bilirubin Negative Urine Urobilinogen Negative Ur Leukocyte Esterase Negative RPR Titer 12/02/16 06:00 WBC RBC Hgb Hct MCV MCHC RDW Plt Count MPV Sodium Potassium Chloride Carbon Dioxide Anion Gap BUN Creatinine Creat Clearance w eGFR Random Glucose Calcium Total Bilirubin AST ALT Alkaline Phosphatase Total Protein Albumin Urine Color Urine Appearance Urine pH Ur Specific [place] Urine Protein Urine Glucose (UA) Urine Ketones Urine Blood Urine Nitrite Urine Bilirubin Urine Urobilinogen Ur Leukocyte Esterase RPR Titer Nonreactive LABS NOTED. Assessment: 12/05/16 13:55 WITHDRAWAL SYMPTOMS. Plan: CONTINUE DETOX.
[2016-12-05] MEDS: IBUPROFEN 400 MG TABLET (FP) PO PRN (16:23)
[2016-12-05] MEDS: THIAMINE HCL 100 MG TABLET (FP) PO SCH (22:06)
[2016-12-05] MEDS: ZOLPIDEM TARTRATE 10 MG TABLET (PARK CARE ONLY) PO PRN (22:06)
[2016-12-06] MEDS ORDERED: METHADONE HCL 5 MG TABLET (FOR DETOX USE ONLY) PO SCH (06:00)
[2016-12-06] MEDS: IBUPROFEN 400 MG TABLET (FP) PO PRN (07:55)
[2016-12-06] MEDS: NICOTINE 21 MG/24 HOURS TOPICAL PATCH TD SCH (10:15)
[2016-12-06] MEDS: PRENATAL VITAMINS W/ FOLIC ACID TABLET (FP) PO SCH (10:16)
[2016-12-06] MEDS: LISINOPRIL 5 MG TABLET (FP) PO SCH (10:16)
[2016-12-06] MEDS: amLODIPine BESYLATE 10 MG TABLET (FP) PO SCH (10:16)
[2016-12-06] MEDS: HYDROCHLOROTHIAZIDE 12.5 MG CAPSULE (FP) PO SCH (10:27)
[2016-12-06 10:50] VITALS: BP 139/87; PULSE 82; TEMP 97.4
--- NOTE | 2016-12-06 12:31 | DS ---
[facility] Detox Discharge Summary Admission Date: 12/01/16 Discharge Date: 12/06/16 - History Present History: Alcohol Dependence, Opioid Dependence Pertinent Past History: HTN HERD PPD Positive Old NV Old CVA - Physical Exam Results Vital Signs: Vital Signs Temperature 97.4 F L 12/06/16 10:49 Pulse Rate 82 12/06/16 10:49 Respiratory Rate 20 12/06/16 10:49 Blood Pressure 139/87 12/06/16 10:49 O2 Sat by Pulse Oximetry (%) Pertinent Admission Physical Exam Findings: Withdrawal symptoms Laboratory Tests 12/01/16 12/02/16 12/02/16 20:30 06:00 06:00 WBC 4.3 D RBC 4.39 Hgb 14.8 Hct 44.3 MCV 100.9 H MCHC 33.5 RDW 15.4 D Plt Count 155 D MPV 10.0 Sodium 146 H Potassium 3.5 Chloride 108 H Carbon Dioxide 27 Anion Gap 11 BUN 8 D Creatinine 0.8 Creat Clearance w eGFR > 60 Random Glucose 94 Calcium 8.8 Total Bilirubin 0.7 D AST 28 ALT 26 D Alkaline Phosphatase 78 Total Protein 7.5 Albumin 3.9 Urine Color Yellow Urine Appearance Clear Urine pH 5.0 Ur Specific [place] 1.020 Urine Protein Negative Urine Glucose (UA) Negative Urine Ketones Negative Urine Blood Negative Urine Nitrite Negative Urine Bilirubin Negative Urine Urobilinogen Negative Ur Leukocyte Esterase Negative RPR Titer 12/02/16 06:00 WBC RBC Hgb Hct MCV MCHC RDW Plt Count MPV Sodium Potassium Chloride Carbon Dioxide Anion Gap BUN Creatinine Creat Clearance w eGFR Random Glucose Calcium Total Bilirubin AST ALT Alkaline Phosphatase Total Protein Albumin Urine Color Urine Appearance Urine pH Ur Specific [place] Urine Protein Urine Glucose (UA) Urine Ketones Urine Blood Urine Nitrite Urine Bilirubin Urine Urobilinogen Ur Leukocyte Esterase RPR Titer Nonreactive Labs noted - Treatment Hospital Course: Detox Protocol Followed, Detoxed Safely, Responded well, Discharged Condition Good, Rehab Referral Accepted - Medication Discharge Medications: Ambulatory Orders Hydrochlorothiazide [Hctz -] 12.5 mg PO DAILY #30 tab 10/31/16 - Diagnosis (1) Alcohol dependence with uncomplicated withdrawal Status: Acute (2) Essential hypertension Status: Chronic (3) Nicotine dependence Status: Chronic (4) Old NV (myocardial infarction) Status: Chronic (5) Old cerebrovascular accident without late effect Status: Chronic (6) Opioid dependence with withdrawal Status: Acute (7) Positive PPD, treated Status: Chronic (8) GERD (gastroesophageal reflux disease) Status: Chronic - AMA Did Patient Leave Against Medical Advice: No
== END 2016-12-06 12:15 | disposition other institution (70) | DRG 773 ==
LOC: YASAS 14:01 → Y3N 17:52
PROVIDERS: ADMIT Internal Medicine; ATTEND Internal Medicine
PROC: HZ2ZZZZ Detoxification Services for Substance Abuse Treatment (ICD-10-PCS; principal; 2016-12-01)
DX: F11.23 Opioid dependence with withdrawal (principal); F10.230 Alcohol dependence with withdrawal, uncomplicated; F17.210 Nicotine dependence, cigarettes, uncomplicated; F19.24 Other psychoactive substance dependence with psychoactive substance-induced mood disorder; F32.5 Major depressive disorder, single episode, in full remission; I10 Essential (primary) hypertension; I25.2 Old myocardial infarction; R00.0 Tachycardia, unspecified; K21.9 Gastro-esophageal reflux disease without esophagitis; R76.11 Nonspecific reaction to tuberculin skin test without active tuberculosis; Z86.73 Personal history of transient ischemic attack (TIA), and cerebral infarction without residual deficits
CPT/HCPCS: 36415; 80053; 81003; 85027; 86593; 93005; 93010

== ENCOUNTER 2016-12-06 12:24 | Inpatient (IN) | payer OTHER ==
[2016-12-06] MEDS ORDERED: LOPERAMIDE HCL 2 MG CAPSULE PO PRN (13:40)
[2016-12-06] MEDS ORDERED: MAGNESIUM HYDROX 2400MG/30ML ORAL SUSPENSION 30 ML CUP PO PRN (13:40)
[2016-12-06] MEDS ORDERED: MAGNESIUM CITRATE 300 ML BOTTLE PO PRN (13:40)
[2016-12-06] MEDS ORDERED: guaiFENesin/D-METHORPHAN HB 10 ML UNIT-DOSE CUPS PO PRN (13:40)
[2016-12-06] MEDS ORDERED: MAG HYDROX/AL HYDROX/SIMETH 30 ML UNIT-DOSE CUP PO PRN (13:40)
[2016-12-06] MEDS ORDERED: MENTHOL/PHENOL 1 EACH UD MM PRN (13:40)
--- NOTE | 2016-12-06 13:45 | HP ---
[facility] Rehab Assess/Revision - Admission History Admitted to Rehab from: [facility] Date of Admission to Rehab: 12/06/16 - Vital signs Vital Signs: Vital Signs Period Temp Pulse Resp BP Sys/Sánchez Pulse Ox Last 24 Hr 98.3 F 69 16 129/82 - Findings Detox History & Physical reviewed: Yes Concur with findings: Yes Comments/Additional Findings: FOR REHAB PROTOCOL
[2016-12-06] MEDS: P-EPHED 60MG/TRIPROLIDI 2.5MG TABLET PO PRN (17:51)
[2016-12-06] MEDS: hydrOXYzine PAMOATE 50 MG CAPSULE (FP) PO PRN (17:52)
[2016-12-06] MEDS: THIAMINE HCL 100 MG TABLET (FP) PO SCH (21:41)
[2016-12-06] MEDS: diphenhydrAMINE HCL 50 MG CAPSULE PO PRN (21:42)
--- NOTE | 2016-12-07 06:40 | HP ---
Psychiatrist Admission - Data Date of interview: 12/07/16 Admission source: 3N Identifying data: Thhis is the first [facility] admission for this 55 years old Black male, father of 7 children, unemployed on food stamp, homeless Medical History: Significant for HTN, GERD, +PPD treated, history of CVA & SD and history of surgery for I & D abscess right groin. Smokes 10 cigarettes daily Psychiatric History: Reports that his only psychiatric treatment was in 1985 when he was admitted to [facility] [place] for depression following the of his mother that same year. Claims that he was drinking alcohol and smoking crack cocaine around that time. Told chief underwriter that he stayed at [facility] for nearly a year and treated with Makena and Haldol. Reports that on discharge, he was referred to substance abuse program in [facility] where he attended outpatient for nearly a year. Claims that he did not receive psychiatric care while at the program. Denies history of suicidal attempt. At present, reports feeling mildly depressed due to his present situation(homelessness) and sleeping poorly Physical/Sexual Abuse/Trauma History: Denies history of emotional, physical or sexual as well as DV relationship Additional Comment: Reports history of 2 previous misdemeanor arrests on charges og drug possession. Denies being on parole/probation at present Vital Signs: Vital Signs - 24 hr 12/06/16 12/07/16 12/07/16 13:10 00:30 03:30 Temperature 98.3 F Pulse Rate 69 Respiratory 16 20 20 Rate Blood Pressure 129/82 Allergies/Adverse Reactions: Allergies Allergy/AdvReac Type Severity Reaction Status Date / Time No Known Allergies Allergy Verified 12/01/16 16:12 Date of last physical exam: 12/01/16 Concur with the findings of this exam: Yes - Substance Abuse/Tx History Hx Alcohol Use: Yes Hx Substance Use: No Substance Use Type: Alcohol (Started drinking alcohol at age 36, consumes 2 pints of vodka &2x 6Pk of beer daily. Last drink on 12/01/16), Heroin (Started using heroin at age 36, consumes 3-4 bags daily. last used on 11/30/16) Hx Substance Use Treatment: Yes (3 previous inpt detox @[facility]) - Admission Criteria Poor recovery environment: Yes Comorbidities: Yes Lacks judgement: Yes Mental Status Exam - Mental Status Exam Alert and Oriented to: Time, Place, Person Cognitive Function: Fair Patient Appearance: Well Groomed Mood: Depressed Affect: Appropriate Patient Behavior: Cooperative Speech Pattern: Clear Voice Loudness: Normal Thought Process: Intact, Goal Oriented Thought Disorder: Not Present Hallucinations: Denies Suicidal Ideation: Denies Homicidal Ideation: Denies Insight/Judgement: Fair Sleep: Poorly Appetite: Good Muscle strength/Tone: Normal Gait/Station: Normal Psychiatric Findings - Problem List ([place] 1, 2,3) (1) Alcohol dependence Current Visit: Yes Status: Acute (2) Opioid dependence Current Visit: Yes Status: Acute (3) Nicotine dependence Current Visit: No Status: Chronic (4) Major depressive disorder, single episode in full remission Current Visit: No Status: Acute (5) Substance induced mood disorder Current Visit: No Status: Acute (6) Essential hypertension Current Visit: No Status: Chronic (7) GERD (gastroesophageal reflux disease) Current Visit: No Status: Chronic (8) Old [place] (myocardial infarction) Current Visit: No Status: Chronic (9) Positive PPD, treated Current Visit: No Status: Chronic - Initial Treatment Plan Initial Treatment Plan: 1) Belsomra 10 mg po HS prn for insomnia. 2) Monitor progress
[2016-12-07] MEDS ORDERED: PNEUMOC 13-VAL CONJ-DIP CRM/PF 0.5 ML DISP.SYRIN IM ONE (10:00)
[2016-12-07] MEDS: HYDROCHLOROTHIAZIDE 12.5 MG CAPSULE (FP) PO SCH (10:08)
[2016-12-07] MEDS: NICOTINE 21 MG/24 HOURS TOPICAL PATCH TD SCH (10:08)
[2016-12-07] MEDS: PRENATAL VITAMINS W/ FOLIC ACID TABLET (FP) PO SCH (10:08)
[2016-12-07] MEDS ORDERED: PNEUMOCOCCAL 23 VACCINE 0.5 ML VIAL IM ONE (12:00)
[2016-12-07] MEDS: hydrOXYzine PAMOATE 50 MG CAPSULE (FP) PO PRN (12:01)
[2016-12-07] MEDS: IBUPROFEN 400 MG TABLET (FP) PO PRN (21:40)
[2016-12-07] MEDS: diphenhydrAMINE HCL 50 MG CAPSULE PO PRN (21:40)
[2016-12-07] MEDS: THIAMINE HCL 100 MG TABLET (FP) PO SCH (21:40)
[2016-12-07] MEDS ORDERED: SUVOREXANT 10 MG TABLET PO PRN (22:00)
[2016-12-08] MEDS: HYDROCHLOROTHIAZIDE 12.5 MG CAPSULE (FP) PO SCH (09:56)
[2016-12-08] MEDS: NICOTINE 21 MG/24 HOURS TOPICAL PATCH TD SCH (09:56)
[2016-12-08] MEDS: PRENATAL VITAMINS W/ FOLIC ACID TABLET (FP) PO SCH (09:56)
[2016-12-08] MEDS: hydrOXYzine PAMOATE 50 MG CAPSULE (FP) PO PRN ×2 (14:41→19:15)
[2016-12-08] MEDS: THIAMINE HCL 100 MG TABLET (FP) PO SCH (21:24)
[2016-12-08] MEDS: diphenhydrAMINE HCL 50 MG CAPSULE PO PRN (21:25)
[2016-12-09] MEDS: PRENATAL VITAMINS W/ FOLIC ACID TABLET (FP) PO SCH (09:25)
[2016-12-09] MEDS: NICOTINE 21 MG/24 HOURS TOPICAL PATCH TD SCH (09:25)
[2016-12-09] MEDS: HYDROCHLOROTHIAZIDE 12.5 MG CAPSULE (FP) PO SCH (09:25)
[2016-12-09] MEDS: diphenhydrAMINE HCL 50 MG CAPSULE PO PRN (21:03)
[2016-12-09] MEDS: THIAMINE HCL 100 MG TABLET (FP) PO SCH (21:05)
[2016-12-10] MEDS: PRENATAL VITAMINS W/ FOLIC ACID TABLET (FP) PO SCH (09:35)
[2016-12-10] MEDS: NICOTINE 21 MG/24 HOURS TOPICAL PATCH TD SCH (09:35)
[2016-12-10] MEDS: HYDROCHLOROTHIAZIDE 12.5 MG CAPSULE (FP) PO SCH (09:35)
[2016-12-10] MEDS: IBUPROFEN 400 MG TABLET (FP) PO PRN (17:09)
[2016-12-10] MEDS: THIAMINE HCL 100 MG TABLET (FP) PO SCH (21:11)
[2016-12-10] MEDS: P-EPHED 60MG/TRIPROLIDI 2.5MG TABLET PO PRN (21:12)
[2016-12-11] MEDS: NICOTINE 21 MG/24 HOURS TOPICAL PATCH TD SCH (09:54)
[2016-12-11] MEDS: P-EPHED 60MG/TRIPROLIDI 2.5MG TABLET PO PRN ×2 (09:54→21:31)
[2016-12-11] MEDS: IBUPROFEN 400 MG TABLET (FP) PO PRN ×2 (09:55→18:49)
[2016-12-11] MEDS: PRENATAL VITAMINS W/ FOLIC ACID TABLET (FP) PO SCH (09:55)
[2016-12-11] MEDS: HYDROCHLOROTHIAZIDE 12.5 MG CAPSULE (FP) PO SCH (09:55)
[2016-12-11] MEDS: diphenhydrAMINE HCL 50 MG CAPSULE PO PRN (21:30)
[2016-12-11] MEDS: THIAMINE HCL 100 MG TABLET (FP) PO SCH (21:30)
[2016-12-12] MEDS: hydrOXYzine PAMOATE 50 MG CAPSULE (FP) PO PRN (00:47)
[2016-12-12] MEDS: diphenhydrAMINE HCL 50 MG CAPSULE PO PRN ×2 (00:47→21:20)
[2016-12-12] MEDS: HYDROCHLOROTHIAZIDE 12.5 MG CAPSULE (FP) PO SCH (09:36)
[2016-12-12] MEDS: PRENATAL VITAMINS W/ FOLIC ACID TABLET (FP) PO SCH (09:36)
[2016-12-12] MEDS: IBUPROFEN 400 MG TABLET (FP) PO PRN ×3 (09:37→21:19)
[2016-12-12] MEDS: NICOTINE 21 MG/24 HOURS TOPICAL PATCH TD SCH (09:37)
[2016-12-12] MEDS: THIAMINE HCL 100 MG TABLET (FP) PO SCH (21:41)
[2016-12-13] MEDS: PRENATAL VITAMINS W/ FOLIC ACID TABLET (FP) PO SCH (09:36)
[2016-12-13] MEDS: NICOTINE 21 MG/24 HOURS TOPICAL PATCH TD SCH (09:37)
[2016-12-13] MEDS: HYDROCHLOROTHIAZIDE 12.5 MG CAPSULE (FP) PO SCH (09:37)
[2016-12-13] MEDS: IBUPROFEN 400 MG TABLET (FP) PO PRN (09:38)
[2016-12-13] MEDS: THIAMINE HCL 100 MG TABLET (FP) PO SCH (21:32)
[2016-12-13] MEDS: diphenhydrAMINE HCL 50 MG CAPSULE PO PRN (21:33)
[2016-12-14] MEDS: HYDROCHLOROTHIAZIDE 12.5 MG CAPSULE (FP) PO SCH (10:06)
[2016-12-14] MEDS: PRENATAL VITAMINS W/ FOLIC ACID TABLET (FP) PO SCH (10:06)
[2016-12-14] MEDS: NICOTINE 21 MG/24 HOURS TOPICAL PATCH TD SCH (10:06)
[2016-12-14] MEDS: IBUPROFEN 400 MG TABLET (FP) PO PRN ×2 (10:07→21:21)
[2016-12-14] MEDS: ACETAMINOPHEN 325 MG TABLET (FP) PO PRN (15:24)
[2016-12-14] MEDS: THIAMINE HCL 100 MG TABLET (FP) PO SCH (21:21)
[2016-12-14] MEDS: diphenhydrAMINE HCL 50 MG CAPSULE PO PRN (21:21)
[2016-12-15] MEDS: ACETAMINOPHEN 325 MG TABLET (FP) PO PRN (09:47)
[2016-12-15] MEDS: PRENATAL VITAMINS W/ FOLIC ACID TABLET (FP) PO SCH (09:48)
[2016-12-15] MEDS: NICOTINE 21 MG/24 HOURS TOPICAL PATCH TD SCH (09:48)
[2016-12-15] MEDS: HYDROCHLOROTHIAZIDE 12.5 MG CAPSULE (FP) PO SCH (09:48)
[2016-12-15] MEDS: diphenhydrAMINE HCL 50 MG CAPSULE PO PRN (21:13)
[2016-12-15] MEDS: IBUPROFEN 400 MG TABLET (FP) PO PRN (21:14)
[2016-12-15] MEDS: THIAMINE HCL 100 MG TABLET (FP) PO SCH (21:14)
[2016-12-16] MEDS ORDERED: cloNIDine HCL 0.1 MG TABLET PO ONE (06:50)
--- NOTE | 2016-12-16 08:50 | PN ---
S Progress Note Note: HISTORY OF HYPERTENSION,ON AMLODIPINE 10 MGS PO DAILY Vital Signs Temperature 98.6 F 12/16/16 06:29 Pulse Rate 78 12/16/16 06:29 Respiratory Rate 18 12/16/16 06:29 Blood Pressure 159/112 12/16/16 06:29 O2 Sat by Pulse Oximetry (%) TO GIVE AMLODIPINE 10 MGS PO DAILY,HYDROCHOLOROTHIAZIDE 12.5 MG PO DAILY, BP MONITORING
[2016-12-16] MEDS: NICOTINE 21 MG/24 HOURS TOPICAL PATCH TD SCH (09:31)
[2016-12-16] MEDS: PRENATAL VITAMINS W/ FOLIC ACID TABLET (FP) PO SCH (09:31)
[2016-12-16] MEDS: HYDROCHLOROTHIAZIDE 12.5 MG CAPSULE (FP) PO SCH (09:31)
[2016-12-16] MEDS: IBUPROFEN 400 MG TABLET (FP) PO PRN ×2 (09:32→21:05)
[2016-12-16] MEDS: amLODIPine BESYLATE 10 MG TABLET (FP) PO SCH (09:32)
[2016-12-16] MEDS: diphenhydrAMINE HCL 50 MG CAPSULE PO PRN (21:05)
[2016-12-16] MEDS: THIAMINE HCL 100 MG TABLET (FP) PO SCH (21:31)
[2016-12-17] MEDS: PRENATAL VITAMINS W/ FOLIC ACID TABLET (FP) PO SCH (09:35)
[2016-12-17] MEDS: HYDROCHLOROTHIAZIDE 12.5 MG CAPSULE (FP) PO SCH (09:35)
[2016-12-17] MEDS: amLODIPine BESYLATE 10 MG TABLET (FP) PO SCH (09:35)
[2016-12-17] MEDS: IBUPROFEN 400 MG TABLET (FP) PO PRN ×2 (09:35→21:20)
[2016-12-17] MEDS: NICOTINE 21 MG/24 HOURS TOPICAL PATCH TD SCH (09:36)
[2016-12-17] MEDS: THIAMINE HCL 100 MG TABLET (FP) PO SCH (21:19)
[2016-12-17] MEDS: diphenhydrAMINE HCL 50 MG CAPSULE PO PRN (21:19)
[2016-12-18] MEDS: NICOTINE 21 MG/24 HOURS TOPICAL PATCH TD SCH (09:42)
[2016-12-18] MEDS: PRENATAL VITAMINS W/ FOLIC ACID TABLET (FP) PO SCH (09:42)
[2016-12-18] MEDS: HYDROCHLOROTHIAZIDE 12.5 MG CAPSULE (FP) PO SCH (09:42)
[2016-12-18] MEDS: amLODIPine BESYLATE 10 MG TABLET (FP) PO SCH (09:42)
[2016-12-18] MEDS: ACETAMINOPHEN 325 MG TABLET (FP) PO PRN ×2 (09:43→18:27)
[2016-12-18] MEDS: hydrOXYzine PAMOATE 50 MG CAPSULE (FP) PO PRN (12:06)
[2016-12-18] MEDS: THIAMINE HCL 100 MG TABLET (FP) PO SCH (21:16)
[2016-12-18] MEDS: diphenhydrAMINE HCL 50 MG CAPSULE PO PRN (21:17)
[2016-12-18] MEDS: IBUPROFEN 400 MG TABLET (FP) PO PRN (21:19)
[2016-12-19] MEDS ORDERED: HYDROCHLOROTHIAZIDE 12.5 MG CAPSULE (FP) PO SCH ×2 (06:00→06:39)
[2016-12-19] MEDS: HYDROCHLOROTHIAZIDE 12.5 MG CAPSULE (FP) PO SCH (06:48)
[2016-12-19] MEDS: PRENATAL VITAMINS W/ FOLIC ACID TABLET (FP) PO SCH (09:40)
[2016-12-19] MEDS: NICOTINE 21 MG/24 HOURS TOPICAL PATCH TD SCH (09:40)
[2016-12-19] MEDS: amLODIPine BESYLATE 10 MG TABLET (FP) PO SCH (09:40)
[2016-12-19] MEDS: THIAMINE HCL 100 MG TABLET (FP) PO SCH (21:01)
[2016-12-19] MEDS: diphenhydrAMINE HCL 50 MG CAPSULE PO PRN (21:02)
[2016-12-20] MEDS: HYDROCHLOROTHIAZIDE 12.5 MG CAPSULE (FP) PO SCH (06:29)
--- NOTE | 2016-12-20 07:47 | PN ---
S Progress Note Note: Vital Signs Temperature 98.8 F 12/20/16 06:44 Pulse Rate 91 H 12/20/16 06:44 Respiratory Rate 20 12/20/16 06:44 Blood Pressure 151/102 12/20/16 06:44 O2 Sat by Pulse Oximetry (%) WILL ADD LISINOPRIL 5 MGS PO DAILY ASYMPTOMATIC VITAL SIGNS MONITORING
[2016-12-20] MEDS: amLODIPine BESYLATE 10 MG TABLET (FP) PO SCH (09:34)
[2016-12-20] MEDS: LISINOPRIL 5 MG TABLET (FP) PO SCH (09:34)
[2016-12-20] MEDS: NICOTINE 21 MG/24 HOURS TOPICAL PATCH TD SCH (09:34)
[2016-12-20] MEDS: PRENATAL VITAMINS W/ FOLIC ACID TABLET (FP) PO SCH (09:34)
[2016-12-20] MEDS: ACETAMINOPHEN 325 MG TABLET (FP) PO PRN (09:35)
[2016-12-20] MEDS: THIAMINE HCL 100 MG TABLET (FP) PO SCH (21:10)
[2016-12-20] MEDS: diphenhydrAMINE HCL 50 MG CAPSULE PO PRN (21:10)
[2016-12-21] MEDS: HYDROCHLOROTHIAZIDE 12.5 MG CAPSULE (FP) PO SCH (06:40)
[2016-12-21 06:53] VITALS: BP 149/103; PULSE 108; TEMP 98.9
--- NOTE | 2016-12-21 07:29 | PN ---
Psychiatric Progress Note Vital Signs: Vital Signs Period Temp Pulse Resp BP Sys/Sánchez Pulse Ox Last 24 Hr 98.9 F 98-108 18-18 149-153/93-103 Date of Session: 12/21/16 Chief Complaint:: Discharge Note HPI: Patient addressing Alcohol and Opoid Dependence comorbid with Nicotine Dependence and MDd, single episode in full remission ROS: HTN, GERD and +PPD were medically managed Current Medications: Active Medications Generic Name Dose Route Start Last Admin Trade Name Freq PRN Reason Stop Dose Admin Acetaminophen 650 mg 12/06/16 13:40 12/20/16 09:35 Tylenol - PO 650 mg Q4H PRN Administration FEVER OR PAIN Al Hydroxide/Mg Hydroxide 30 ml 12/06/16 13:40 Mylanta Oral Suspension - PO Q6H PRN DYSPEPSIA Amlodipine Besylate 10 mg 12/16/16 10:00 12/20/16 09:34 Norvasc - PO 10 mg DAILY MILIND Administration Diphenhydramine HCl 50 mg 12/06/16 13:40 12/20/16 21:10 Benadryl - PO 50 mg HSMR1 PRN Administration FOR ITCHING Eucalyptus/Menthol/Phenol/Sorbitol 1 each 12/06/16 13:40 Cepastat Lozenge - MM Q4H PRN SORE THROAT Guaifenesin 10 ml 12/06/16 13:40 Robitussin Dm - PO Q6H PRN COUGH Hydrochlorothiazide 12.5 mg 12/19/16 06:45 12/21/16 06:40 Hctz - PO 12.5 mg DAILY@0600 MILIND Administration Hydroxyzine Pamoate 50 mg 12/06/16 13:40 12/18/16 12:06 Vistaril - PO 50 mg Q4H PRN Administration AGITATION Ibuprofen 400 mg 12/06/16 13:40 12/18/16 21:19 Motrin - PO 400 mg Q6H PRN Administration PAIN Lisinopril 5 mg 12/20/16 10:00 12/20/16 09:34 Prinivil PO 5 mg DAILY MILIND Administration Loperamide HCl 4 mg 12/06/16 13:40 Imodium - PO Q6H PRN DIARRHEA Magnesium Hydroxide 30 ml 12/06/16 13:40 Milk Of Magnesia - PO DAILY PRN CONSTIPATION Nicotine 21 mg 12/07/16 10:00 12/20/16 09:34 Nicoderm Patch - TD Not Given DAILY MILIND Multivit/Folic Acid/Iron 1 tab 12/07/16 10:00 12/20/16 09:34 Vitamins (Sjr) - PO 1 tab DAILY MILIND Administration Pseudoephedrine/Triprolidine 1 combo 12/06/16 13:40 12/11/16 21:31 Actifed - PO 1 combo TID PRN Administration NASAL CONGESTION Thiamine HCl 100 mg 12/06/16 22:00 12/20/16 21:10 Vitamin B1 - PO 100 mg HS MILIND Administration Current Side Effect: No Lab tests ordered: Yes Lab tests reviewed: Yes Provider note:: Patient has completed this program today. 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 He is stable for discharge today Total face to face time:: 35 Mental Status Exam - Mental Status Exam Alert and Oriented to: Time, Place, Person Cognitive Function: Fair Patient Appearance: Well Groomed Mood: Hopeful, Euthymic Affect: Appropriate Patient Behavior: Cooperative Speech Pattern: Clear Voice Loudness: Normal Thought Process: Intact, Goal Oriented Thought Disorder: Not Present Hallucinations: Denies Suicidal Ideation: Denies Homicidal Ideation: Denies Insight/Judgement: Fair Sleep: Fair Appetite: Good Muscle strength/Tone: Normal Gait/Station: Normal Psychiatric Treatment Plan - Problem List (1) Alcohol dependence Current Visit: Yes (2) Opioid dependence Current Visit: Yes (3) Nicotine dependence Current Visit: No (4) Major depressive disorder, single episode in full remission Current Visit: No (5) Substance induced mood disorder Current Visit: No (6) Essential hypertension Current Visit: No (7) GERD (gastroesophageal reflux disease) Current Visit: No (8) Old PR (myocardial infarction) Current Visit: No (9) Positive PPD, treated Current Visit: No Initial treatment plan: Patient is discharged today and referred to [facility] for outpatient treatment
[2016-12-21] MEDS: PRENATAL VITAMINS W/ FOLIC ACID TABLET (FP) PO SCH (09:42)
[2016-12-21] MEDS: amLODIPine BESYLATE 10 MG TABLET (FP) PO SCH (09:42)
[2016-12-21] MEDS: LISINOPRIL 5 MG TABLET (FP) PO SCH (09:42)
== END 2016-12-21 09:55 | disposition home or self-care (01) | DRG 772 ==
LOC: YASAS 12:24 → Y3W 12:26
PROVIDERS: ADMIT Psychiatry & Neurology Psychiatry; ATTEND Psychiatry & Neurology Psychiatry
PROC: HZ42ZZZ Group Counseling for Substance Abuse Treatment, Cognitive-Behavioral (ICD-10-PCS; principal; 2016-12-21)
DX: F11.20 Opioid dependence, uncomplicated (principal); F10.230 Alcohol dependence with withdrawal, uncomplicated; F33.9 Major depressive disorder, recurrent, unspecified; F17.210 Nicotine dependence, cigarettes, uncomplicated; R55 Syncope and collapse; I25.2 Old myocardial infarction; Z86.73 Personal history of transient ischemic attack (TIA), and cerebral infarction without residual deficits; K21.9 Gastro-esophageal reflux disease without esophagitis; R76.11 Nonspecific reaction to tuberculin skin test without active tuberculosis
CPT/HCPCS: 90732; G0009

== ENCOUNTER 2017-01-02 10:19 | Inpatient (IN) | payer OTHER ==
[2017-01-02 10:35] VITALS: BMI 25.3
--- NOTE | 2017-01-02 11:02 | HP ---
CIWA Score - CIWA Score Nausea/Vomitin-Int. Nausea w/Dry Heave Muscle Tremors: 4-Moderate,w/Arms Extend Anxiety: 4-Mod. Anxious/Guarded Agitation: 1-Slight > Activity Paroxysmal Sweats: 4-Forehead w/Sweat Beads Orientation: 1-Uncertain about Date Tacttile Disturbances: 1-Very Mild Itch/Numbness Auditory Disturbances: 1-Very Mild Visual Disturbances: 2-Mild Sensitivity Headache: 2-Mild CIWA-Ar Total Score: 24 Admission ROS S - HPI Chief Complaint: I want help, I can't stop, I feel sick Allergies/Adverse Reactions: Allergies Allergy/AdvReac Type Severity Reaction Status Date / Time No Known Allergies Allergy Verified 12/01/16 16:12 History of Present Illness: 56 yo gentleman here for detox from heroin, alcohol however urine tox neg for opiates - will detox from alcohol. Patient was here for detox/rehab and 12/06-03/2017 however currently very shaky, diaphoretic and was sent for detox by [facility] and detox is medically necessary. Exam Limitations: Clinical Condition - Ebola screening Have you traveled outside of the country in the last 21 days: No Have you had contact with anyone from an Ebola affected area: No Have you been sick,other than usual withdrawal symptoms: No Do you have a fever: No - Review of Systems Constitutional: Chills, Loss of Appetite, Malaise, Night Sweats, Changes in sleep, Weakness EENT: reports: Blurred Vision, Nose Congestion Respiratory: reports: No Symptoms reported Cardiac: reports: No Symptoms Reported GI: reports: Poor Appetite, Indigestion : reports: Frequency Musculoskeletal: reports: Back Pain, Muscle Pain Integumentary: reports: Flushing Neuro: reports: Headache, Tremors Endocrine: reports: No Symptoms Reported Hematology: reports: No Symptoms Reported Psychiatric: reports: Judgement Intact, Mood/Affect Appropiate, Anxious Other Systems: Reviewed and Negative Patient History - Patient Medical History Hx Anemia: No Hx Asthma: No Hx Chronic Obstructive Pulmonary Disease (COPD): No Hx Cardiac Disorders: Yes (irregular heartbeat) Hx Hypertension: Yes Hx Hypercholesterolemia: No HX Cerebrovascular Accident: No Hx Seizures: No Hx Diabetes: No Hx Gastrointestinal Disorders: No Hx Genitourinary Disorders: No Hx Sexually Transmitted Disorders: No Hx Renal Disease (ESRD): No Hx Thyroid Disease: No Hx Human Immunodeficiency Virus (HIV): No (NEGATIVE 08/28) Hx Hepatitis C: No Hx Depression: Yes (hx meds in past) Hx Suicide Attempt: No Hx Bipolar Disorder: No Hx Schizophrenia: No - Patient Surgical History Past Surgical History: Yes Hx Neurologic Surgery: No Hx Cataract Extraction: No Hx Cardiac Surgery: No Hx Lung Surgery: No Hx Breast Surgery: No Hx Breast Biopsy: No Hx Abdominal Surgery: No Hx Appendectomy: No Hx Cholecystectomy: No Hx Genitourinary Surgery: No Hx Orthopedic Surgery: No Other Surgical History: incisioin and drainage of abscess of right groin Anesthesia Reaction: No - PPD History Results: CXR TBD - Reproductive History Patient is a Female of Child Bearing Age (11 -55 yrs old): No (male) - Smoking Cessation Smoking history: Current every day smoker Have you smoked in the past 12 months: Yes Aproximately how many cigarettes per day: 10 Hx Chewing Tobacco Use: No Initiated information on smoking cessation: Yes 'Breaking Loose' booklet given: 01/02/17 (give on floor) - Substance & Tx. History Hx Alcohol Use: Yes Hx Substance Use: Yes Substance Use Type: Alcohol, Cocaine, Heroin Hx Substance Use Treatment: Yes (detox, rehab, suboxone) - Substances Abused Alcohol Route: Oral Frequency: Daily Amount used: 4 pints liquor; six pack of 16oz beer Age of first use: 14 Date of Last Use: 01/02/17 Heroin Route: Inhalation Frequency: 3-6 times per week Family Disease History - Family Disease History Family Disease History: Other: Father (HTN-), Mother (HTN-) Admission Physical Exam S - Vital Signs Vital Signs: Vital Signs - 24 hr 01/02/17 10:33 Temperature 96.6 F L Pulse Rate 96 H Respiratory 20 Rate Blood Pressure 168/110 - Physical General Appearance: Yes: Nourished, Appropriately Dressed, Moderate Distress, Tremorous, Sweating, Anxious HEENTM: Yes: Hearing grossly Normal, Normal ENT Inspection, Normocephalic, Normal Voice Respiratory: Yes: Normal Breath Sounds, No Respiratory Distress Neck: Yes: No masses,lesions,Nodules, Supple Breast: Yes: Breast Exam Deferred Cardiology: Yes: Regular Rhythm, Regular Rate Abdominal: Yes: Soft Genitourinary: Yes: Frequency Back: Yes: Normal Inspection Musculoskeletal: Yes: full range of Motion, Gait Steady Extremities: Yes: Normal Inspection, Normal Range of Motion Neurological: Yes: Fully Oriented, Alert, Normal Mood/Affect, Normal Response Integumentary: Yes: Normal Color, Warm Lymphatic: Yes: Within Normal Limits - Diagnostic (1) Alcohol dependence with uncomplicated withdrawal Current Visit: Yes Status: Chronic (2) Hypertension Current Visit: Yes Status: Chronic Qualifiers: Hypertension type: essential hypertension Qualified Code(s): I10 - Essential (primary) hypertension (3) Essential hypertension Current Visit: Yes Status: Chronic (4) Nicotine dependence Current Visit: Yes Status: Chronic (5) Old [place] (myocardial infarction) Current Visit: Yes Status: Chronic (6) Old cerebrovascular accident without late effect Current Visit: Yes Status: Chronic (7) Positive PPD, treated Current Visit: Yes Status: Chronic Cleared for Admission S - Detox or Rehab [facility] Level of Care: Medically Managed Detox Regimen/Protocol: Librium S Breath Alcohol Content Breath Alcohol Content: 0 Urine Drug Screen - Results Drug Screen Negative: No Urine Drug Screen Results: ANCELMO-Cocaine, BZO-Benzodiazepines
[2017-01-02] MEDS ORDERED: MAGNESIUM CITRATE 300 ML BOTTLE PO PRN (14:24)
[2017-01-02] MEDS ORDERED: MAGNESIUM HYDROX 2400MG/30ML ORAL SUSPENSION 30 ML CUP PO PRN (14:24)
[2017-01-02] MEDS ORDERED: LOPERAMIDE HCL 2 MG CAPSULE PO PRN (14:24)
[2017-01-02] MEDS ORDERED: guaiFENesin/D-METHORPHAN HB 10 ML UNIT-DOSE CUPS PO PRN (14:24)
[2017-01-02] MEDS ORDERED: chlordiazePOXIDE HCL 25 MG CAPSULE PO PRN (14:24)
[2017-01-02] MEDS ORDERED: MAG HYDROX/AL HYDROX/SIMETH 30 ML UNIT-DOSE CUP PO PRN (14:24)
[2017-01-02] MEDS ORDERED: diphenhydrAMINE HCL 50 MG CAPSULE PO PRN (14:24)
[2017-01-02] MEDS ORDERED: P-EPHED 60MG/TRIPROLIDI 2.5MG TABLET PO PRN (14:24)
[2017-01-02] MEDS ORDERED: MENTHOL/PHENOL 1 EACH UD MM PRN (14:24)
[2017-01-02] MEDS ORDERED: chlordiazePOXIDE HCL 25 MG CAPSULE PO ONE (15:30)
[2017-01-02] MEDS: LISINOPRIL 5 MG TABLET (FP) PO SCH (18:16)
[2017-01-02] MEDS: NICOTINE 21 MG/24 HOURS TOPICAL PATCH TD SCH (18:17)
[2017-01-02] MEDS: chlordiazePOXIDE HCL 25 MG CAPSULE PO SCH ×2 (18:18→22:47)
[2017-01-02] MEDS ORDERED: ATORVASTATIN CA 40 MG TABLET (FP) ONE (22:46)
[2017-01-02] MEDS: THIAMINE HCL 100 MG TABLET (FP) PO SCH (22:47)
[2017-01-02] MEDS: ATORVASTATIN CA 80 MG TABLET (FP) PO SCH (22:47)
[2017-01-03] MEDS: chlordiazePOXIDE HCL 25 MG CAPSULE PO SCH ×4 (05:21→22:24)
[2017-01-03 10:19] LABS: MCH 33.6 pg (25.7-33.7); MCHC 33.9 g/dl (32.0-35.9); MEAN PLT VOLUME 8.9 fl (7.5-11.1); PLATELET COUNT 114 K/MM3 (134-434); RDW 13.7 % (11.9-15.9); WHITE BLOOD COUNT 5.5 K/mm3 (4.0-10.0)
[2017-01-03 10:21] LABS: URINE APPEARANCE CLEAR; URINE BILIRUBIN NEGATIVE (NEGATIVE); URINE BLOOD NEGATIVE (NEGATIVE); URINE COLOR YELLOW; URINE GLUCOSE (UA) NEGATIVE (NEGATIVE); URINE KETONE TRACE (NEGATIVE); URINE LEUK ESTERASE TRACE (NEGATIVE); URINE NITRITE NEGATIVE (NEGATIVE); URINE PROTEIN NEGATIVE (NEGATIVE); URINE UROBILINOGEN 4.0 E.U/dl mg/dL (0.2-1.0)
[2017-01-03 10:32] LABS: CALCIUM OXALATE CRYSTALS RARE /hpf (NONE SEEN); URINE MUCUS RARE; URINE RBC 1 /hpf (0-3); URINE WBC 4 /hpf (3-5)
[2017-01-03 10:41] LABS: ALBUMIN 3.3 g/dl (3.4-5.0); ANION GAP 8 (8-16); CALCIUM 8.8 mg/dL (8.5-10.1); CO2 28 mmol/L (21-32); CREATININE 0.8 mg/dL (0.7-1.3); GLUCOSE,RANDOM 84 mg/dL (74-106); SGOT/AST 20 U/L (15-37); SGPT/ALT 26 U/L (12-78)
[2017-01-03 10:43] LABS: ALK PHOS 70 U/L (45-117); BILIRUBIN,TOTAL 0.9 mg/dL (0.2-1.0); TOT PROT 6.3 g/dl (6.4-8.2)
[2017-01-03] MEDS: amLODIPine BESYLATE 10 MG TABLET (FP) PO SCH (10:51)
[2017-01-03] MEDS: NICOTINE 21 MG/24 HOURS TOPICAL PATCH TD SCH (10:51)
[2017-01-03] MEDS: HYDROCHLOROTHIAZIDE 12.5 MG CAPSULE (FP) PO SCH (10:51)
[2017-01-03] MEDS: PRENATAL VITAMINS W/ FOLIC ACID TABLET (FP) PO SCH (10:51)
[2017-01-03] MEDS: ASPIRIN 81 MG CHEWABLE TABLETS PO SCH (10:51)
[2017-01-03] MEDS: LISINOPRIL 5 MG TABLET (FP) PO SCH (10:52)
--- NOTE | 2017-01-03 14:24 | PN ---
S CIWA - CIWA Score Nausea/Vomitin Muscle Tremors: 4-Moderate,w/Arms Extend Anxiety: 4-Mod. Anxious/Guarded Agitation: 4-Moderately Restless Paroxysmal Sweats: No Perspiration Orientation: 0-Oriented Tacttile Disturbances: 1-Very Mild Itch/Numbness Auditory Disturbances: 0-None Visual Disturbances: 0-None Headache: 2-Mild CIWA-Ar Total Score: 18 [facility] Progress Note (SOAP) Subjective: Nausea, tremor, chills, sweating, interrupted sleep, anxious Objective: 01/03/17 14:21 Laboratory Tests Last Vital Signs Temp Pulse Resp BP Pulse Ox 97.5 F L 114 H 20 137/94 01/03/17 14:11 01/03/17 14:11 01/03/17 14:11 01/03/17 14:11 Noted with tachycardia Laboratory Tests 01/03/17 01/03/17 01/03/17 07:40 07:40 07:40 WBC 5.5 RBC 4.02 Hgb 13.5 Hct 39.8 MCV 99.0 H MCH 33.6 MCHC 33.9 RDW 13.7 D Plt Count 114 L D MPV 8.9 D Sodium 137 Potassium 3.5 Chloride 101 Carbon Dioxide 28 Anion Gap 8 BUN 11 D Creatinine 0.8 Creat Clearance w eGFR > 60 Random Glucose 84 Calcium 8.8 Total Bilirubin 0.9 D AST 20 D ALT 26 Alkaline Phosphatase 70 Total Protein 6.3 L Albumin 3.3 L Urine Color Urine Appearance Urine pH Ur Specific [place] Urine Protein Urine Glucose (UA) Urine Ketones Urine Blood Urine Nitrite Urine Bilirubin Urine Urobilinogen Ur Leukocyte Esterase Urine RBC Urine WBC Ur Epithelial Cells Calcium Oxalate Crystal Urine Mucus RPR Titer Nonreactive 01/03/17 07:40 WBC RBC Hgb Hct MCV MCH MCHC RDW Plt Count MPV Sodium Potassium Chloride Carbon Dioxide Anion Gap BUN Creatinine Creat Clearance w eGFR Random Glucose Calcium Total Bilirubin AST ALT Alkaline Phosphatase Total Protein Albumin Urine Color Yellow Urine Appearance Clear Urine pH 6.0 Ur Specific [place] 1.020 Urine Protein Negative Urine Glucose (UA) Negative Urine Ketones Trace H Urine Blood Negative Urine Nitrite Negative Urine Bilirubin Negative Urine Urobilinogen 4.0 e.u/dl Ur Leukocyte Esterase Trace Urine RBC 1 Urine WBC 4 Ur Epithelial Cells Rare Calcium Oxalate Crystal Rare Urine Mucus Rare RPR Titer Labs noted Assessment: 01/03/17 14:22 Withdrawal symptoms noted with tachycardia Plan: Continue detox, encouraged to drink lots of water for hydration ambien 10mg PO qhs prn insomnia/interrupted sleep Tachycardia most likely due to withdrawal: encouraged to drink lots of water, continue PRN medication, continue to monitor
[2017-01-03] MEDS ORDERED: ATORVASTATIN CA 40 MG TABLET (FP) ONE (20:53)
[2017-01-03] MEDS: THIAMINE HCL 100 MG TABLET (FP) PO SCH (22:23)
[2017-01-03] MEDS: ATORVASTATIN CA 80 MG TABLET (FP) PO SCH (22:23)
[2017-01-03] MEDS: ZOLPIDEM TARTRATE 5 MG TABLET PO PRN (22:23)
[2017-01-04] MEDS: chlordiazePOXIDE HCL 25 MG CAPSULE PO SCH ×2 (05:34→10:35)
[2017-01-04] MEDS: ASPIRIN 81 MG CHEWABLE TABLETS PO SCH (10:34)
[2017-01-04] MEDS: amLODIPine BESYLATE 10 MG TABLET (FP) PO SCH (10:34)
[2017-01-04] MEDS: LISINOPRIL 5 MG TABLET (FP) PO SCH (10:34)
[2017-01-04] MEDS: HYDROCHLOROTHIAZIDE 12.5 MG CAPSULE (FP) PO SCH (10:34)
[2017-01-04] MEDS: PRENATAL VITAMINS W/ FOLIC ACID TABLET (FP) PO SCH (10:34)
[2017-01-04] MEDS: NICOTINE 21 MG/24 HOURS TOPICAL PATCH TD SCH (10:38)
--- NOTE | 2017-01-04 10:39 | CONSULT ---
[facility] Psychiatric Consult - Data Date of interview: 01/04/17 Admission source: [facility] Identifying data: Readmission to [facility] for this 56 y/o AA male seeking detox treatment on for alcohol,cocaine and heroin dependence.Patient is ,a father of seven,homeless,unemployed and supported on food stamps. Substance Abuse History: Patient endorses alcohol abuse since age 14 (vodka + beer),heroin abuse via snorting and cocaine (smoking).Smokes one pack of cigarettes daily.Last use drugs / alcohol on 01/03/17. Medical History: Remarkable for hypertension,GERD,cardiac issues (past history of myocardial infarction) and antecedent of cerebrovascular accident. Psychiatric History: Patient is a difficult,irritable and unreliable historian.Mr Painting admits to a past psychiatric hospitalization at [facility] (previous records indicate past commitment to [facility] in 1985).Has " no idea " about his diagnosis.No OPD care.Patient denies being on psychotropic medications.It appears that,according to Dr Pena's entry of 12/07/16,the patient was kept for an entire year at [facility] and managed on a regimen of laloperidol + lithium carbonate.No reported history of suicide attempts. Physical/Sexual Abuse/Trauma History: Patient denies. Additional Comment: Urine Drug Screen Results: ANCELMO-Cocaine, BZO- Benzodiazepines.Noted. Mental Status Exam - Mental Status Exam Alert and Oriented to: Time, Place, Person Cognitive Function: Good Patient Appearance: Well Groomed Mood: Irritable Affect: Normal Range Patient Behavior: Passive, Cooperative (marginally) Speech Pattern: Clear Voice Loudness: Normal Thought Process: Goal Oriented Thought Disorder: Not Present Hallucinations: Denies Suicidal Ideation: Denies Homicidal Ideation: Denies Insight/Judgement: Poor Sleep: Well Appetite: Good Muscle strength/Tone: Normal Gait/Station: Normal Psychiatric Findings - Problem List ([place] 1, 2,3) (1) Alcohol dependence with uncomplicated withdrawal Current Visit: Yes Status: Acute (2) Cocaine dependence Current Visit: Yes Status: Acute (3) Nicotine dependence Current Visit: Yes Status: Acute Qualifiers: Nicotine product type: cigarettes Substance use status: uncomplicated Qualified Code(s): F17.210 - Nicotine dependence, cigarettes, uncomplicated (4) Substance induced mood disorder Current Visit: Yes Status: Acute (5) Hypertension Current Visit: Yes Status: Chronic Qualifiers: Hypertension type: essential hypertension Qualified Code(s): I10 - Essential (primary) hypertension (6) Old cerebrovascular accident without late effect Current Visit: Yes Status: Chronic (7) Positive PPD, treated Current Visit: Yes Status: Chronic (8) GERD (gastroesophageal reflux disease) Current Visit: Yes Status: Chronic (9) Old [place] (myocardial infarction) Current Visit: Yes Status: Chronic - Initial Treatment Plan Initial Treatment Plan: Psychoeducation.Detoxification.Observation.
--- NOTE | 2017-01-04 11:33 | EKG ---
Test Reason : Blood Pressure : / mmHG Vent. Rate : 083 BPM Atrial Rate : 083 BPM P-R Int : 140 ms QRS Dur : 090 ms QT Int : 400 ms P-R-T Axes : 070 -14 054 degrees QTc Int : 470 ms NORMAL SINUS RHYTHM POSSIBLE LEFT ATRIAL ENLARGEMENT BORDERLINE ECG WHEN COMPARED WITH ECG OF 01-DEC-2016 18:30, LEFT ANTERIOR FASCICULAR BLOCK IS NO LONGER PRESENT Confirmed by COLTON GILL, MARIELLE ([id number]) on 01/04/2017 11:33:26 AM Referred By: Confirmed By:MARIELLE SEGURA MD
--- NOTE | 2017-01-04 12:19 | PN ---
[facility] CIWA - CIWA Score Nausea/Vomitin-No Nausea/No Vomiting Muscle Tremors: 4-Moderate,w/Arms Extend Anxiety: 3 Agitation: 3 Paroxysmal Sweats: 3 Orientation: 0-Oriented Tacttile Disturbances: 0-None Auditory Disturbances: 2-Mild Harshness/Frighten Visual Disturbances: 2-Mild Sensitivity Headache: 0-None Present CIWA-Ar Total Score: 17 [facility] Progress Note (SOAP) Subjective: Tremors, Diarrhea, Interrupted sleep, Sweating. Objective: PT. A & O X 3, OBSERVED AMBULATING ON UNIT. NO ACUTE DISTRESS. 01/04/17 12:17 Vital Signs Temperature 97.7 F 01/04/17 09:18 Pulse Rate 74 01/04/17 09:18 Respiratory Rate 18 01/04/17 09:18 Blood Pressure 131/93 01/04/17 09:18 O2 Sat by Pulse Oximetry (%) Laboratory Tests 01/03/17 01/03/17 01/03/17 07:40 07:40 07:40 WBC 5.5 RBC 4.02 Hgb 13.5 Hct 39.8 MCV 99.0 H MCH 33.6 MCHC 33.9 RDW 13.7 D Plt Count 114 L D MPV 8.9 D Sodium 137 Potassium 3.5 Chloride 101 Carbon Dioxide 28 Anion Gap 8 BUN 11 D Creatinine 0.8 Creat Clearance w eGFR > 60 Random Glucose 84 Calcium 8.8 Total Bilirubin 0.9 D AST 20 D ALT 26 Alkaline Phosphatase 70 Total Protein 6.3 L Albumin 3.3 L Urine Color Urine Appearance Urine pH Ur Specific [place] Urine Protein Urine Glucose (UA) Urine Ketones Urine Blood Urine Nitrite Urine Bilirubin Urine Urobilinogen Ur Leukocyte Esterase Urine RBC Urine WBC Ur Epithelial Cells Calcium Oxalate Crystal Urine Mucus RPR Titer Nonreactive 01/03/17 07:40 WBC RBC Hgb Hct MCV MCH MCHC RDW Plt Count MPV Sodium Potassium Chloride Carbon Dioxide Anion Gap BUN Creatinine Creat Clearance w eGFR Random Glucose Calcium Total Bilirubin AST ALT Alkaline Phosphatase Total Protein Albumin Urine Color Yellow Urine Appearance Clear Urine pH 6.0 Ur Specific [place] 1.020 Urine Protein Negative Urine Glucose (UA) Negative Urine Ketones Trace H Urine Blood Negative Urine Nitrite Negative Urine Bilirubin Negative Urine Urobilinogen 4.0 e.u/dl Ur Leukocyte Esterase Trace Urine RBC 1 Urine WBC 4 Ur Epithelial Cells Rare Calcium Oxalate Crystal Rare Urine Mucus Rare RPR Titer LABS NOTED. Assessment: 01/04/17 12:18 WITHDRAWAL SYMPTOMS. Plan: CONTINUE DETOX.
[2017-01-04] MEDS: ACETAMINOPHEN 325 MG TABLET (FP) PO PRN (15:24)
[2017-01-04] MEDS: chlordiazePOXIDE 5 MG CAPSULE PO SCH ×2 (17:09→22:23)
[2017-01-04] MEDS: ZOLPIDEM TARTRATE 5 MG TABLET PO PRN (22:22)
[2017-01-04] MEDS: THIAMINE HCL 100 MG TABLET (FP) PO SCH (22:23)
[2017-01-04] MEDS: ATORVASTATIN CA 80 MG TABLET (FP) PO SCH (22:23)
[2017-01-05] MEDS: chlordiazePOXIDE 5 MG CAPSULE PO SCH ×2 (05:58→10:35)
[2017-01-05] MEDS: NICOTINE 21 MG/24 HOURS TOPICAL PATCH TD SCH (10:33)
[2017-01-05] MEDS: amLODIPine BESYLATE 10 MG TABLET (FP) PO SCH (10:33)
[2017-01-05] MEDS: HYDROCHLOROTHIAZIDE 12.5 MG CAPSULE (FP) PO SCH (10:34)
[2017-01-05] MEDS: LISINOPRIL 5 MG TABLET (FP) PO SCH (10:34)
[2017-01-05] MEDS: ASPIRIN 81 MG CHEWABLE TABLETS PO SCH (10:34)
[2017-01-05] MEDS: hydrOXYzine PAMOATE 50 MG CAPSULE (FP) PO PRN ×2 (10:34→16:45)
[2017-01-05] MEDS: PRENATAL VITAMINS W/ FOLIC ACID TABLET (FP) PO SCH (10:34)
--- NOTE | 2017-01-05 11:29 | PN ---
[facility] CIWA - CIWA Score Nausea/Vomitin-No Nausea/No Vomiting Muscle Tremors: 5 Anxiety: 5 Agitation: 4-Moderately Restless Paroxysmal Sweats: 1-Minimal Palms Moist Orientation: 0-Oriented Tacttile Disturbances: 3-Moderate Itch/Numb/Burn Auditory Disturbances: 0-None Visual Disturbances: 0-None Headache: 0-None Present CIWA-Ar Total Score: 18 [facility] Progress Note (SOAP) Subjective: ANXIETY,TREMORS,IRRITABILITY,SWEATS,INTERMITTENT SLEEP,'URGE TO GO OUT AND DRINK '. REQUESTING TO SEE THE PSYCH MD TODAYS FOR INSOMNIA. Objective: 01/05/17 11:29 Vital Signs Temperature 99.3 F 01/05/17 09:34 Pulse Rate 105 H 01/05/17 09:34 Respiratory Rate 16 01/05/17 09:34 Blood Pressure 137/92 01/05/17 09:34 O2 Sat by Pulse Oximetry (%) Laboratory Last Values WBC 5.5 K/mm3 (4.0-10.0) 01/03/17 07:40 RBC 4.02 M/mm3 (4.00-5.60) 01/03/17 07:40 Hgb 13.5 GM/dL (11.7-16.9) 01/03/17 07:40 Hct 39.8 % (35.4-49) 01/03/17 07:40 MCV 99.0 fl (80-96) H 01/03/17 07:40 MCH 33.6 pg (25.7-33.7) 01/03/17 07:40 MCHC 33.9 g/dl (32.0-35.9) 01/03/17 07:40 RDW 13.7 % (11.9-15.9) D 01/03/17 07:40 Plt Count 114 K/MM3 (134-434) L D 01/03/17 07:40 MPV 8.9 fl (7.5-11.1) D 01/03/17 07:40 Sodium 137 mmol/L (136-145) 01/03/17 07:40 Potassium 3.5 mmol/L (3.5-5.1) 01/03/17 07:40 Chloride 101 mmol/L (98-107) 01/03/17 07:40 Carbon Dioxide 28 mmol/L (21-32) 01/03/17 07:40 Anion Gap 8 (8-16) 01/03/17 07:40 BUN 11 mg/dL (7-18) D 01/03/17 07:40 Creatinine 0.8 mg/dL (0.7-1.3) 01/03/17 07:40 Creat Clearance w eGFR > 60 (>60) 01/03/17 07:40 Random Glucose 84 mg/dL (74-106) 01/03/17 07:40 Calcium 8.8 mg/dL (8.5-10.1) 01/03/17 07:40 Total Bilirubin 0.9 mg/dL (0.2-1.0) D 01/03/17 07:40 AST 20 U/L (15-37) D 01/03/17 07:40 ALT 26 U/L (12-78) 01/03/17 07:40 Alkaline Phosphatase 70 U/L (45-117) 01/03/17 07:40 Total Protein 6.3 g/dl (6.4-8.2) L 01/03/17 07:40 Albumin 3.3 g/dl (3.4-5.0) L 01/03/17 07:40 Urine Color Yellow 01/03/17 07:40 Urine Appearance Clear 01/03/17 07:40 Urine pH 6.0 (5.0-8.0) 01/03/17 07:40 Ur Specific [place] 1.020 (1.005-1.025) 01/03/17 07:40 Urine Protein Negative (NEGATIVE) 01/03/17 07:40 Urine Glucose (UA) Negative (NEGATIVE) 01/03/17 07:40 Urine Ketones Trace (NEGATIVE) H 01/03/17 07:40 Urine Blood Negative (NEGATIVE) 01/03/17 07:40 Urine Nitrite Negative (NEGATIVE) 01/03/17 07:40 Urine Bilirubin Negative (NEGATIVE) 01/03/17 07:40 Urine Urobilinogen 4.0 e.u/dl mg/dL (0.2-1.0) 01/03/17 07:40 Ur Leukocyte Esterase Trace (NEGATIVE) 01/03/17 07:40 Urine RBC 1 /hpf (0-3) 01/03/17 07:40 Urine WBC 4 /hpf (3-5) 01/03/17 07:40 Ur Epithelial Cells Rare /hpf (FEW) 01/03/17 07:40 Calcium Oxalate Crystal Rare /hpf (NONE SEEN) 01/03/17 07:40 Urine Mucus Rare 01/03/17 07:40 RPR Titer Nonreactive (NONREACTIVE) 01/03/17 07:40 Assessment: 01/05/17 11:29 WITHDRAWAL SX Plan: CONTINUE DETOX SEN BY MYNOR GILL TODAY.
[2017-01-05] MEDS ORDERED: chlordiazePOXIDE HCL 25 MG CAPSULE PO ONE (14:30)
[2017-01-05 17:11] LABS: URINE APPEARANCE CLEAR; URINE BILIRUBIN NEGATIVE (NEGATIVE); URINE BLOOD NEGATIVE (NEGATIVE); URINE COLOR LTYELLOW; URINE GLUCOSE (UA) NEGATIVE (NEGATIVE); URINE KETONE NEGATIVE (NEGATIVE); URINE LEUK ESTERASE NEGATIVE (NEGATIVE); URINE NITRITE NEGATIVE (NEGATIVE); URINE PROTEIN NEGATIVE (NEGATIVE); URINE UROBILINOGEN NEGATIVE mg/dL (0.2-1.0)
[2017-01-05] MEDS: chlordiazePOXIDE HCL 10 MG CAPSULE PO SCH ×2 (17:20→22:12)
[2017-01-05] MEDS: ACETAMINOPHEN 325 MG TABLET (FP) PO PRN ×2 (17:20→22:12)
[2017-01-05] MEDS: ZOLPIDEM TARTRATE 5 MG TABLET PO PRN (22:12)
[2017-01-05] MEDS: ATORVASTATIN CA 80 MG TABLET (FP) PO SCH (22:12)
[2017-01-05] MEDS: THIAMINE HCL 100 MG TABLET (FP) PO SCH (22:49)
[2017-01-06] MEDS: chlordiazePOXIDE HCL 10 MG CAPSULE PO SCH (05:09)
[2017-01-06 06:23] VITALS: BP 135/94; PULSE 95; TEMP 97.6
[2017-01-06] MEDS: ASPIRIN 81 MG CHEWABLE TABLETS PO SCH (10:34)
[2017-01-06] MEDS: HYDROCHLOROTHIAZIDE 12.5 MG CAPSULE (FP) PO SCH (10:35)
[2017-01-06] MEDS: amLODIPine BESYLATE 10 MG TABLET (FP) PO SCH (10:35)
[2017-01-06] MEDS: PRENATAL VITAMINS W/ FOLIC ACID TABLET (FP) PO SCH (10:35)
[2017-01-06] MEDS: NICOTINE 21 MG/24 HOURS TOPICAL PATCH TD SCH (10:35)
[2017-01-06] MEDS: LISINOPRIL 5 MG TABLET (FP) PO SCH (11:17)
--- NOTE | 2017-01-06 13:46 | DS ---
[facility] Detox Discharge Summary Admission Date: 01/02/17 Discharge Date: 01/06/17 - History Present History: Alcohol Dependence, Cocaine Dependence Additional Comments: DETOX COMPLETED. ALERT O X 3. NAD. PT INSTRUCTED TO FOLLOW UP WITH PCP AT [facility]. Pertinent Past History: HTN GERD S/P CVA - Physical Exam Results Vital Signs: Vital Signs Temperature 97.6 F 01/06/17 06:22 Pulse Rate 95 H 01/06/17 06:22 Respiratory Rate 18 01/06/17 06:22 Blood Pressure 135/94 01/06/17 06:22 O2 Sat by Pulse Oximetry (%) Pertinent Admission Physical Exam Findings: WITHDRAWAL SX Laboratory Last Values WBC 5.5 K/mm3 (4.0-10.0) 01/03/17 07:40 RBC 4.02 M/mm3 (4.00-5.60) 01/03/17 07:40 Hgb 13.5 GM/dL (11.7-16.9) 01/03/17 07:40 Hct 39.8 % (35.4-49) 01/03/17 07:40 MCV 99.0 fl (80-96) H 01/03/17 07:40 MCH 33.6 pg (25.7-33.7) 01/03/17 07:40 MCHC 33.9 g/dl (32.0-35.9) 01/03/17 07:40 RDW 13.7 % (11.9-15.9) D 01/03/17 07:40 Plt Count 114 K/MM3 (134-434) L D 01/03/17 07:40 MPV 8.9 fl (7.5-11.1) D 01/03/17 07:40 Sodium 137 mmol/L (136-145) 01/03/17 07:40 Potassium 3.5 mmol/L (3.5-5.1) 01/03/17 07:40 Chloride 101 mmol/L (98-107) 01/03/17 07:40 Carbon Dioxide 28 mmol/L (21-32) 01/03/17 07:40 Anion Gap 8 (8-16) 01/03/17 07:40 BUN 11 mg/dL (7-18) D 01/03/17 07:40 Creatinine 0.8 mg/dL (0.7-1.3) 01/03/17 07:40 Creat Clearance w eGFR > 60 (>60) 01/03/17 07:40 Random Glucose 84 mg/dL (74-106) 01/03/17 07:40 Calcium 8.8 mg/dL (8.5-10.1) 01/03/17 07:40 Total Bilirubin 0.9 mg/dL (0.2-1.0) D 01/03/17 07:40 AST 20 U/L (15-37) D 01/03/17 07:40 ALT 26 U/L (12-78) 01/03/17 07:40 Alkaline Phosphatase 70 U/L (45-117) 01/03/17 07:40 Total Protein 6.3 g/dl (6.4-8.2) L 01/03/17 07:40 Albumin 3.3 g/dl (3.4-5.0) L 01/03/17 07:40 Urine Color Ltyellow 01/05/17 16:00 Urine Appearance Clear 01/05/17 16:00 Urine pH 7.0 (5.0-8.0) 01/05/17 16:00 Ur Specific [place] 1.020 (1.005-1.025) 01/05/17 16:00 Urine Protein Negative (NEGATIVE) 01/05/17 16:00 Urine Glucose (UA) Negative (NEGATIVE) 01/05/17 16:00 Urine Ketones Negative (NEGATIVE) 01/05/17 16:00 Urine Blood Negative (NEGATIVE) 01/05/17 16:00 Urine Nitrite Negative (NEGATIVE) 01/05/17 16:00 Urine Bilirubin Negative (NEGATIVE) 01/05/17 16:00 Urine Urobilinogen Negative mg/dL (0.2-1.0) 01/05/17 16:00 Ur Leukocyte Esterase Negative (NEGATIVE) 01/05/17 16:00 Urine RBC 1 /hpf (0-3) 01/03/17 07:40 Urine WBC 4 /hpf (3-5) 01/03/17 07:40 Ur Epithelial Cells Rare /hpf (FEW) 01/03/17 07:40 Calcium Oxalate Crystal Rare /hpf (NONE SEEN) 01/03/17 07:40 Urine Mucus Rare 01/03/17 07:40 RPR Titer Nonreactive (NONREACTIVE) 01/03/17 07:40 - Treatment Hospital Course: Detox Protocol Followed, Detoxed Safely, Responded well, Discharged Condition Good, Rehab Referral Accepted - Medication Discharge Medications: Ambulatory Orders Amlodipine Besylate [Norvasc -] 10 mg PO DAILY #30 tablet 01/06/17 Aspirin [ASA -] 81 mg PO DAILY #30 tab.chew 01/06/17 Atorvastatin Ca [Lipitor] 80 mg PO HS #30 tab 01/06/17 Hydrochlorothiazide [Hctz -] 12.5 mg PO DAILY #30 tab 01/06/17 Lisinopril [Prinivil] 5 mg PO DAILY #30 tablet 01/06/17 - Diagnosis (1) Alcohol dependence with uncomplicated withdrawal Status: Acute (2) Nicotine dependence Status: Acute Qualifiers: Nicotine product type: cigarettes Substance use status: uncomplicated Qualified Code(s): F17.210 - Nicotine dependence, cigarettes, uncomplicated (3) Essential hypertension Status: Chronic (4) GERD (gastroesophageal reflux disease) Status: Chronic Qualifiers: Esophagitis presence: without esophagitis Qualified Code(s): K21.9 - Gastro-esophageal reflux disease without esophagitis (5) Old [place] (myocardial infarction) Status: Resolved (6) Old cerebrovascular accident without late effect Status: Resolved - AMA Did Patient Leave Against Medical Advice: No
== END 2017-01-06 09:00 | disposition home or self-care (01) | DRG 774 ==
LOC: YASAS 10:19 → Y3N 16:10
PROVIDERS: ADMIT Internal Medicine; ATTEND Internal Medicine
PROC: HZ2ZZZZ Detoxification Services for Substance Abuse Treatment (ICD-10-PCS; principal; 2017-01-02)
DX: F10.230 Alcohol dependence with withdrawal, uncomplicated (principal); F14.20 Cocaine dependence, uncomplicated; F17.210 Nicotine dependence, cigarettes, uncomplicated; F19.24 Other psychoactive substance dependence with psychoactive substance-induced mood disorder; I10 Essential (primary) hypertension; I25.2 Old myocardial infarction; K21.9 Gastro-esophageal reflux disease without esophagitis; R76.11 Nonspecific reaction to tuberculin skin test without active tuberculosis; R00.0 Tachycardia, unspecified; Z86.73 Personal history of transient ischemic attack (TIA), and cerebral infarction without residual deficits; Z79.82 Long term (current) use of aspirin
CPT/HCPCS: 36415; 80053; 81003; 81015; 85027; 86593; 93005; 93010

== ENCOUNTER 2017-03-04 10:20 | Inpatient (IN) | payer OTHER ==
[2017-03-04 14:11] VITALS: BMI 24.8
--- NOTE | 2017-03-04 16:15 | HP ---
CIWA Score - CIWA Score Nausea/Vomitin Muscle Tremors: 4-Moderate,w/Arms Extend Anxiety: 3 Agitation: 3 Paroxysmal Sweats: 1-Minimal Palms Moist Orientation: 0-Oriented Tacttile Disturbances: 1-Very Mild Itch/Numbness Auditory Disturbances: 0-None Visual Disturbances: 0-None Headache: 1-Very Mild CIWA-Ar Total Score: 16 Admission ROS BHS - HPI Chief Complaint: alcohol withdrawal sx Allergies/Adverse Reactions: Allergies Allergy/AdvReac Type Severity Reaction Status Date / Time No Known Allergies Allergy Verified 03/04/17 15:40 History of Present Illness: 56 yom with h/o chronic alcoholism, repeated detox at [facility] recently discharged from [facility] ED after treatement of elevated BP, d/c short term rehab this month but has been drinking daily since - 3 pints of spirits and 2 6 packs daily, is currently homeless and was unkempt and in poor condition on admission to unit, necessitating admission and inpatient detox on this occasion, dehydrated, required showering before examination by staff PMHX HTN, high cholesterol, nicotine dependence denies psychiatric history, but depression noted in medical record, no suicide attempts in past no suicidla ideatio at present no h/o seizurs noh /o DTS. not using any other licit or illicit medication uds +ve from medication adminsitered at [facility] ED. Exam Limitations: No Limitations - Ebola screening Have you traveled outside of the country in the last 21 days: No Have you had contact with anyone from an Ebola affected area: No Have you been sick,other than usual withdrawal symptoms: No Do you have a fever: No - Review of Systems Constitutional: Chills, Diaphoresis, Loss of Appetite, Malaise, Night Sweats, Changes in sleep, Weight Stable EENT: reports: No Symptoms Reported Respiratory: reports: No Symptoms reported Cardiac: reports: No Symptoms Reported GI: reports: Diarrhea, Nausea, Poor Appetite, Poor Fluid Intake, Indigestion, Abdominal cramping : reports: No Symptoms Reported Integumentary: reports: Flushing, Sweating Neuro: reports: Numbness, Tingling, Tremors, Weakness Endocrine: reports: No Symptoms Reported Hematology: reports: No Symptoms Reported Psychiatric: reports: Judgement Intact, Mood/Affect Appropiate, Orientated x3, Anxious, Depressed Other Systems: Reviewed and Negative Patient History - Patient Medical History Hx Anemia: No Hx Asthma: No Hx Chronic Obstructive Pulmonary Disease (COPD): No Hx Cancer: No Hx Cardiac Disorders: No Hx Congestive Heart Failure: No Hx Hypertension: Yes Hx Hypercholesterolemia: No Hx Pacemaker: No HX Cerebrovascular Accident: No Hx Seizures: No Hx Diabetes: No Hx Gastrointestinal Disorders: No Hx Liver Disease: No Hx Genitourinary Disorders: No Hx Sexually Transmitted Disorders: No Hx Renal Disease (ESRD): No Hx Thyroid Disease: No Hx Human Immunodeficiency Virus (HIV): No (NEGATIVE 08/28) Hx Hepatitis C: No Hx Depression: No Hx Suicide Attempt: No Hx Bipolar Disorder: No Hx Schizophrenia: No - Patient Surgical History Past Surgical History: Yes Hx Neurologic Surgery: No Hx Cataract Extraction: No Hx Cardiac Surgery: No Hx Lung Surgery: No Hx Breast Surgery: No Hx Breast Biopsy: No Hx Abdominal Surgery: No Hx Appendectomy: No Hx Cholecystectomy: No Hx Genitourinary Surgery: No Hx Orthopedic Surgery: No Hx Hysterectomy: No Other Surgical History: incision and drainage of abscess of right groin, healed Anesthesia Reaction: No - PPD History Previous Implant?: Yes Documented Results: Positive w/o proof Results: CXR neg 10/28/16 PPD to be Administered?: No - Reproductive History Patient is a Female of Child Bearing Age (11 -55 yrs old): No Patient : No - Smoking Cessation Smoking history: Current every day smoker Have you smoked in the past 12 months: Yes Aproximately how many cigarettes per day: 10 Hx Chewing Tobacco Use: No Initiated information on smoking cessation: Yes 'Breaking Loose' booklet given: 03/04/17 - Substance & Tx. History Hx Alcohol Use: Yes Hx Substance Use: No Substance Use Type: Alcohol Hx Substance Use Treatment: Yes ( [facility] in past) - Substances Abused Alcohol-vodka/beer Route: Oral Frequency: Daily Amount used: 2-3 pts./8 (40 oz.) Age of first use: 15 Date of Last Use: 03/04/17 Family Disease History - Family Disease History Family Disease History: Other: Father (HTN-), Mother (HTN-) Admission Physical Exam BHS - Vital Signs Vital Signs: Vital Signs - 24 hr 03/04/17 12:50 Temperature 96.0 F L Pulse Rate 83 Respiratory 18 Rate Blood Pressure 103/66 - Physical General Appearance: Yes: Nourished, Disheveled, Mild Distress, Severe Distress, Thin, Tremorous, Sweating, Anxious HEENTM: Yes: Within Normal Limits, EOMI, Hearing grossly Normal, Normal ENT Inspection, Normocephalic, Normal Voice, LIEN, Pharynx Normal Respiratory: Yes: Within Normal Limits, Chest Non-Tender, Lungs Clear, Normal Breath Sounds, No Respiratory Distress, No Accessory Muscle Use Neck: Yes: Within Normal Limits, No masses,lesions,Nodules, Supple, Trachea in good position Breast: Yes: Breast Exam Deferred Cardiology: Yes: Within Normal Limits, Regular Rhythm, Regular Rate, S1, S2 Abdominal: Yes: Normal Bowel Sounds, Non Tender, Flat, Soft, Increased Bowel Sounds Genitourinary: Yes: Within Normal Limits Back: Yes: Within Normal Limits, Normal Inspection Musculoskeletal: Yes: Within Normal Limits, full range of Motion, Gait Steady, Pelvis Stable Extremities: Yes: Normal Capillary Refill, Normal Inspection, Normal Range of Motion, Non-Tender, Tremors Neurological: Yes: video camera operator II-XII NML intact, Fully Oriented, Alert, Motor Strength 5/5, Normal Response, Depressed Affect Integumentary: Yes: Normal Color, Warm, Diaphoresis, Moist, Other (poor skin turgor) Lymphatic: Yes: Within Normal Limits - Addiitonal Findings: withdrawal sx, dehydration, neglected body cleansing - Diagnostic (1) Alcohol dependence with uncomplicated withdrawal Current Visit: No Status: Acute (2) Cocaine dependence Current Visit: No Status: Inactive (3) Major depressive disorder, single episode in full remission Current Visit: No Status: Acute (4) Nicotine dependence Current Visit: Yes Status: Chronic Qualifiers: Nicotine product type: cigarettes Substance use status: uncomplicated Qualified Code(s): F17.210 - Nicotine dependence, cigarettes, uncomplicated (5) Opioid dependence with withdrawal Current Visit: No Status: Resolved (6) Substance induced mood disorder Current Visit: Yes Status: Acute (7) Syncope Current Visit: No Status: Resolved (8) Essential hypertension Current Visit: Yes Status: Chronic (9) GERD (gastroesophageal reflux disease) Current Visit: Yes Status: Chronic Qualifiers: Esophagitis presence: without esophagitis Qualified Code(s): K21.9 - Gastro-esophageal reflux disease without esophagitis (10) Positive PPD, treated Current Visit: No Status: Chronic (11) Elevated cholesterol Current Visit: Yes Status: Chronic Cleared for Admission [facility] - Detox or Rehab [facility] Level of Care: Medically Managed Detox Regimen/Protocol: Librium [facility] Breath Alcohol Content Breath Alcohol Content: 0 Urine Drug Screen - Results Drug Screen Negative: No Urine Drug Screen Results: BZO-Benzodiazepines
[2017-03-04] MEDS ORDERED: chlordiazePOXIDE HCL 25 MG CAPSULE PO PRN (16:19)
[2017-03-04] MEDS ORDERED: NICOTINE POLACRILEX 2 MG GUM BC PRN (16:19)
[2017-03-04] MEDS ORDERED: MAGNESIUM HYDROX 2400MG/30ML ORAL SUSPENSION 30 ML CUP PO PRN (16:19)
[2017-03-04] MEDS ORDERED: P-EPHED 60MG/TRIPROLIDI 2.5MG TABLET PO PRN (16:19)
[2017-03-04] MEDS ORDERED: hydrOXYzine PAMOATE 50 MG CAPSULE (FP) PO PRN (16:19)
[2017-03-04] MEDS ORDERED: MAGNESIUM CITRATE 300 ML BOTTLE PO PRN (16:19)
[2017-03-04] MEDS ORDERED: MENTHOL/PHENOL 1 EACH UD MM PRN (16:19)
[2017-03-04] MEDS ORDERED: MAG HYDROX/AL HYDROX/SIMETH 30 ML UNIT-DOSE CUP PO PRN (16:19)
[2017-03-04] MEDS ORDERED: LOPERAMIDE HCL 2 MG CAPSULE PO PRN (16:19)
[2017-03-04] MEDS ORDERED: guaiFENesin/D-METHORPHAN HB 10 ML UNIT-DOSE CUPS PO PRN (16:19)
[2017-03-04] MEDS ORDERED: ACETAMINOPHEN 325 MG TABLET (FP) PO PRN (16:19)
[2017-03-04] MEDS ORDERED: chlordiazePOXIDE HCL 25 MG CAPSULE PO ONE (17:30)
[2017-03-04] MEDS: NICOTINE 14 MG/24 HOURS TOPICAL PATCH TD SCH (20:12)
[2017-03-04] MEDS: THIAMINE HCL 100 MG TABLET (FP) PO SCH (22:42)
[2017-03-04] MEDS: ATORVASTATIN CA 40 MG TABLET (FP) PO SCH (22:42)
[2017-03-04] MEDS: chlordiazePOXIDE HCL 25 MG CAPSULE PO SCH (22:43)
[2017-03-04 23:38] LABS: URINE APPEARANCE CLOUDY; URINE BILIRUBIN NEGATIVE (NEGATIVE); URINE BLOOD NEGATIVE (NEGATIVE); URINE COLOR AMBER; URINE GLUCOSE (UA) NEGATIVE (NEGATIVE); URINE KETONE NEGATIVE (NEGATIVE); URINE LEUK ESTERASE NEGATIVE (NEGATIVE); URINE NITRITE NEGATIVE (NEGATIVE); URINE UROBILINOGEN NEGATIVE mg/dL (0.2-1.0)
[2017-03-04 23:54] LABS: URINE PROTEIN 2+ (NEGATIVE)
[2017-03-05 00:01] LABS: CALCIUM OXALATE CRYSTALS MODERATE /hpf (NONE SEEN); GRANULAR CASTS 28 /lpf; URINE BACTERIA RARE /hpf (NONE SEEN); URINE HYALINE CAST 7 /lpf; URINE MUCUS FEW; URINE RBC 1 /hpf (0-3); URINE WBC 2 /hpf (3-5)
[2017-03-05] MEDS: chlordiazePOXIDE HCL 25 MG CAPSULE PO SCH ×4 (05:53→22:44)
--- NOTE | 2017-03-05 09:22 | EKG ---
Test Reason : Blood Pressure : / mmHG Vent. Rate : 080 BPM Atrial Rate : 080 BPM P-R Int : 132 ms QRS Dur : 082 ms QT Int : 382 ms P-R-T Axes : 067 -37 061 degrees QTc Int : 440 ms NORMAL SINUS RHYTHM POSSIBLE LEFT ATRIAL ENLARGEMENT LEFT AXIS DEVIATION ABNORMAL ECG WHEN COMPARED WITH ECG OF 02-JAN-2017 17:24, NO SIGNIFICANT CHANGE WAS FOUND Confirmed by DAFNE HARDIN MD ([id number]) on 03/05/2017 9:22:12 AM Referred By: Confirmed By:DAFNE HARDIN MD
--- NOTE | 2017-03-05 10:01 | CONSULT ---
[facility] Psychiatric Consult - Data Date of interview: 03/05/17 Admission source: Self-referred Identifying data: Mr Painting is a 56 years old Black male, father of 7 children, unemployed on food stamp, homeless seeking detox treatment for alcohol Substance Abuse History: Reports history of alcohol abuse. He started drinking alcohol at age 15, consumes 2-3 pints of vodka & 8x 40oz of beer daily. Last drink on 03/04/17 Medical History: Significant for HTN, GERD, +PPD treated, history of CVA & IL and history of surgery for I & D abscess right groin. Smokes 10 cigarettes daily Psychiatric History: Patient is a poor, unreliable historian providing different accounts at different encounter. Now he reports receiving psychiaric outpatient treatment for depression at [facility] in the past. He was unable to provide treatment date and medication prescribed. He was seen by Dr Brandon on 01/04/17 during his last inpt detox admission in this facility. Dr Brandon reported that he had a past psychiatric admission in [place]. When confronted about that, he told comic writer that it was a detox admission. During an admission in rehab/[facility] in November-December 2016, he told writed that after his mother in 1985 , he was admitted to [facility] for depression for approximately a year and was treated with Auxier and Haldol. He added that he was using alcohol then. Claimed on discharge, he was referred to a substance abuse program in [place], [place]. He reported that he stayed for a year had no psychiatric follow up there. When confronted about that information, He acknowledged it. Physical/Sexual Abuse/Trauma History: Denies history of emotional, physical or sexual as well as DV relationship Additional Comment: Reports history of 2 previous misdemeanor arrests on charges og drug possession. Denies being on parole/probation at present Mental Status Exam - Mental Status Exam Alert and Oriented to: Time, Place, Person Cognitive Function: Fair Patient Appearance: Well Groomed Mood: Depressed ("Because of my current situation") Affect: Appropriate Patient Behavior: Cooperative Speech Pattern: Clear Voice Loudness: Normal Thought Process: Intact, Goal Oriented Thought Disorder: Not Present Hallucinations: Denies Suicidal Ideation: Denies Homicidal Ideation: Denies Insight/Judgement: Poor Sleep: Fair Appetite: Good Muscle strength/Tone: Normal Gait/Station: Normal Psychiatric Findings - Initial Treatment Plan Initial Treatment Plan: Monitor progress
[2017-03-05 10:25] LABS: MCHC 32.8 g/dl (32.0-35.9); MEAN CELL VOLUME 97.4 fl (80-96); MEAN PLT VOLUME 9.2 fl (7.5-11.1); PLATELET COUNT 156 K/MM3 (134-434); RDW 14.2 % (11.9-15.9); WHITE BLOOD COUNT 4.8 K/mm3 (4.0-10.0)
[2017-03-05] MEDS: amLODIPine BESYLATE 10 MG TABLET (FP) PO SCH (10:31)
[2017-03-05] MEDS: PRENATAL VITAMINS W/ FOLIC ACID TABLET (FP) PO SCH (10:31)
[2017-03-05] MEDS: LISINOPRIL 5 MG TABLET (FP) PO SCH (10:31)
[2017-03-05] MEDS: ASPIRIN 81 MG CHEWABLE TABLETS PO SCH (10:31)
[2017-03-05] MEDS: NICOTINE 14 MG/24 HOURS TOPICAL PATCH TD SCH (10:32)
[2017-03-05] MEDS ORDERED: CYCLOBENZAPRINE HCL 5 MG TABLET PO ONE (10:37)
[2017-03-05 11:21] LABS: ALBUMIN 3.7 g/dl (3.4-5.0); ALK PHOS 69 U/L (45-117); ANION GAP 11 (8-16); BILIRUBIN,TOTAL 0.7 mg/dL (0.2-1.0); CO2 24 mmol/L (21-32); CREATININE 0.9 mg/dL (0.7-1.3); GLUCOSE,RANDOM 87 mg/dL (74-106); SGOT/AST 14 U/L (15-37); SGPT/ALT 24 U/L (12-78); TOT PROT 6.8 g/dl (6.4-8.2)
--- NOTE | 2017-03-05 12:40 | PN ---
S CIWA - CIWA Score Nausea/Vomitin Muscle Tremors: 3 Anxiety: 4-Mod. Anxious/Guarded Agitation: 2 Paroxysmal Sweats: No Perspiration Orientation: 4Disoriented Place/Person Tacttile Disturbances: 1-Very Mild Itch/Numbness Auditory Disturbances: 2-Mild Harshness/Frighten Visual Disturbances: 0-None Headache: 0-None Present CIWA-Ar Total Score: 19 BHS Progress Note (SOAP) Subjective: Diarrhea, Tremors, Body Aches. Pt. reporting difficult in straightening / extending right wrist. Pt. reports denies pain in affected area. Pt. denies any history of traumatic injury to right hand / wrist or any history of similar occurrence. Pt./ denies history of neck / head injury. Objective: PT. A & O X 2 (DISORIENTED ABOUT CURRENT LOCATION). PT. OBSERVED AMBULATING ON UNIT. NO ACUTE DISTRESS. NO REDNESS, WOUND, UNUSUAL DISCHARGE, OR SWELLING NOTED IN RIGHT WRIST / HAND. 03/05/17 12:36 Vital Signs Temperature 97.2 F L 03/05/17 09:51 Pulse Rate 100 H 03/05/17 09:51 Respiratory Rate 18 03/05/17 09:51 Blood Pressure 131/81 03/05/17 09:51 O2 Sat by Pulse Oximetry (%) Laboratory Tests 03/04/17 03/05/17 03/05/17 15:44 07:40 07:40 WBC 4.8 RBC 3.99 L Hgb 12.8 Hct 38.9 MCV 97.4 H MCH 32.0 MCHC 32.8 RDW 14.2 Plt Count 156 D MPV 9.2 Sodium 142 Potassium 3.8 Chloride 107 Carbon Dioxide 24 Anion Gap 11 BUN 16 D Creatinine 0.9 Creat Clearance w eGFR > 60 Random Glucose 87 Calcium 9.0 Total Bilirubin 0.7 D AST 14 L D ALT 24 Alkaline Phosphatase 69 Total Protein 6.8 Albumin 3.7 Urine Color Emily Urine Appearance Cloudy Urine pH 5.0 D Ur Specific [place] 1.025 Urine Protein 2+ H Urine Glucose (UA) Negative Urine Ketones Negative Urine Blood Negative Urine Nitrite Negative Urine Bilirubin Negative Urine Urobilinogen Negative Urine RBC 1 Urine WBC 2 Calcium Oxalate Crystal Moderate Urine Bacteria Rare Hyaline Casts 7 Granular Casts 28 Urine Mucus Few RPR Titer 03/05/17 07:40 WBC RBC Hgb Hct MCV MCH MCHC RDW Plt Count MPV Sodium Potassium Chloride Carbon Dioxide Anion Gap BUN Creatinine Creat Clearance w eGFR Random Glucose Calcium Total Bilirubin AST ALT Alkaline Phosphatase Total Protein Albumin Urine Color Urine Appearance Urine pH Ur Specific [place] Urine Protein Urine Glucose (UA) Urine Ketones Urine Blood Urine Nitrite Urine Bilirubin Urine Urobilinogen Urine RBC Urine WBC Calcium Oxalate Crystal Urine Bacteria Hyaline Casts Granular Casts Urine Mucus RPR Titer Nonreactive LABS NOTED. 03/05/17 12:39 Assessment: 03/05/17 12:39 WITHDRAWAL SYMPTOMS. Plan: CONTINUE DETOX. PRN IMMODIUM FOR DIARRHEA. FLEXERIL, 5 MG PO X 1 FOR RIGHT WRIST. CONTINUE TO MONITOR. REPEAT UA FOR ADMISSION ABNORMALITIES. INCREASE DAILY PO FLUID INTAKE.
[2017-03-05] MEDS: IBUPROFEN 400 MG TABLET (FP) PO PRN ×2 (12:47→19:06)
[2017-03-05 17:01] LABS: URINE APPEARANCE CLEAR; URINE BILIRUBIN NEGATIVE (NEGATIVE); URINE BLOOD NEGATIVE (NEGATIVE); URINE COLOR YELLOW; URINE GLUCOSE (UA) NEGATIVE (NEGATIVE); URINE KETONE NEGATIVE (NEGATIVE); URINE LEUK ESTERASE NEGATIVE (NEGATIVE); URINE NITRITE NEGATIVE (NEGATIVE); URINE PROTEIN NEGATIVE (NEGATIVE)
[2017-03-05] MEDS: THIAMINE HCL 100 MG TABLET (FP) PO SCH (22:44)
[2017-03-05] MEDS: ATORVASTATIN CA 40 MG TABLET (FP) PO SCH (22:44)
[2017-03-05] MEDS: diphenhydrAMINE HCL 50 MG CAPSULE PO PRN (22:44)
[2017-03-06] MEDS: chlordiazePOXIDE HCL 25 MG CAPSULE PO SCH ×3 (05:36→18:01)
[2017-03-06] MEDS: amLODIPine BESYLATE 10 MG TABLET (FP) PO SCH (10:29)
[2017-03-06] MEDS: ASPIRIN 81 MG CHEWABLE TABLETS PO SCH (10:29)
[2017-03-06] MEDS: NICOTINE 14 MG/24 HOURS TOPICAL PATCH TD SCH (10:29)
[2017-03-06] MEDS: PRENATAL VITAMINS W/ FOLIC ACID TABLET (FP) PO SCH (10:29)
[2017-03-06] MEDS: LISINOPRIL 5 MG TABLET (FP) PO SCH (10:29)
[2017-03-06] MEDS: CLOTRIMAZOLE 1% CREAM 15 GM TUBE TP SCH ×2 (13:30→22:21)
[2017-03-06] MEDS: IBUPROFEN 400 MG TABLET (FP) PO PRN (16:27)
--- NOTE | 2017-03-06 16:58 | PN ---
[facility] CIWA - CIWA Score Nausea/Vomitin Muscle Tremors: 2 Anxiety: 5 Agitation: 2 Paroxysmal Sweats: No Perspiration Orientation: 2-Disoriented Date<2 days Tacttile Disturbances: 3-Moderate Itch/Numb/Burn Auditory Disturbances: 0-None Visual Disturbances: 0-None Headache: 0-None Present CIWA-Ar Total Score: 16 BHS Progress Note (SOAP) Subjective: Interrupted Sleep, Diarrhea, Anxious, Stomach Cramping, Body Aches. Py. reports "itching" sensation on right side of scrotum. Pt/. denies any unusual urinary symptoms (burning, pain, frequency, incontinence). Objective: PT. A & O X 2 (DISORIENTED ABOUT DAY / DATE). PT. OBSERVED AMBULATING ON UNIT. NO ACUTE DISTRESS. PT. DENIES CHEST PAIN. NO DISCOLORATION, SWELLING OR UNUSUAL DISCHARGE NOTED ON SCROTUM / PENIS. 03/06/17 16:56 Vital Signs Temperature 97.2 F L 03/06/17 15:29 Pulse Rate 102 H 03/06/17 15:29 Respiratory Rate 18 03/06/17 15:29 Blood Pressure 147/93 03/06/17 15:29 O2 Sat by Pulse Oximetry (%) Laboratory Tests 03/04/17 03/05/17 03/05/17 15:44 07:40 07:40 WBC 4.8 RBC 3.99 L Hgb 12.8 Hct 38.9 MCV 97.4 H MCH 32.0 MCHC 32.8 RDW 14.2 Plt Count 156 D MPV 9.2 Sodium 142 Potassium 3.8 Chloride 107 Carbon Dioxide 24 Anion Gap 11 BUN 16 D Creatinine 0.9 Creat Clearance w eGFR > 60 Random Glucose 87 Calcium 9.0 Total Bilirubin 0.7 D AST 14 L D ALT 24 Alkaline Phosphatase 69 Total Protein 6.8 Albumin 3.7 Urine Color Emily Urine Appearance Cloudy Urine pH 5.0 D Ur Specific [place] 1.025 Urine Protein 2+ H Urine Glucose (UA) Negative Urine Ketones Negative Urine Blood Negative Urine Nitrite Negative Urine Bilirubin Negative Urine Urobilinogen Negative Urine RBC 1 Urine WBC 2 Calcium Oxalate Crystal Moderate Urine Bacteria Rare Hyaline Casts 7 Granular Casts 28 Urine Mucus Few RPR Titer 03/05/17 03/05/17 07:40 15:00 WBC RBC Hgb Hct MCV MCH MCHC RDW Plt Count MPV Sodium Potassium Chloride Carbon Dioxide Anion Gap BUN Creatinine Creat Clearance w eGFR Random Glucose Calcium Total Bilirubin AST ALT Alkaline Phosphatase Total Protein Albumin Urine Color Yellow Urine Appearance Clear Urine pH 6.0 Ur Specific [place] 1.025 Urine Protein Negative Urine Glucose (UA) Negative Urine Ketones Negative Urine Blood Negative Urine Nitrite Negative Urine Bilirubin Negative Urine Urobilinogen 1.0 Urine RBC Urine WBC Calcium Oxalate Crystal Urine Bacteria Hyaline Casts Granular Casts Urine Mucus RPR Titer Nonreactive LABS NOTED. 03/06/17 16:59 Assessment: 03/06/17 16:58 WITHDRAWAL SYMPTOMS. Plan: CONTINUE DETOX. CLOTRIMAZOLE CREAM TO BE APPLIED TO AFFECTED AREA ON SCROTUM BID. PRN IMMODIUM FOR DIARRHEA. PATIENT AGAIN ADVISED TO FOLLOW-UP FOR MEDICAL EXAMINATION AT [facility] (WHERE HE HAS SOUGHT MEDICAL CARE PREVIOUSLY) FOR LIMITED ROM AFFECTING RIGHT HAND. PATIENT VERBALIZED UNDERSTANDING OF RECOMMENDATION.
[2017-03-06] MEDS: THIAMINE HCL 100 MG TABLET (FP) PO SCH (22:20)
[2017-03-06] MEDS: ATORVASTATIN CA 40 MG TABLET (FP) PO SCH (22:20)
[2017-03-06] MEDS: chlordiazePOXIDE 5 MG CAPSULE PO SCH (22:20)
[2017-03-06] MEDS: diphenhydrAMINE HCL 50 MG CAPSULE PO PRN (22:21)
[2017-03-07] MEDS: chlordiazePOXIDE 5 MG CAPSULE PO SCH ×3 (06:16→18:21)
[2017-03-07] MEDS: NICOTINE 14 MG/24 HOURS TOPICAL PATCH TD SCH (09:35)
[2017-03-07] MEDS: CLOTRIMAZOLE 1% CREAM 15 GM TUBE TP SCH ×2 (09:36→22:19)
[2017-03-07] MEDS: amLODIPine BESYLATE 10 MG TABLET (FP) PO SCH (09:36)
[2017-03-07] MEDS: PRENATAL VITAMINS W/ FOLIC ACID TABLET (FP) PO SCH (09:36)
[2017-03-07] MEDS: ASPIRIN 81 MG CHEWABLE TABLETS PO SCH (09:36)
[2017-03-07] MEDS: LISINOPRIL 5 MG TABLET (FP) PO SCH (11:06)
--- NOTE | 2017-03-07 16:35 | PN ---
[facility] Progress Note (SOAP) Subjective: Sweating, body aches, tremor, chills, diarrhea, headache, anxious, agitated, irritable, interrupted sleep; patient c/o numbness and not able to straighten his right hand since admission and he denies any injury. As per patient, he has HTN and is on several medications but he is noncompliant. Patient requesting to be discharged so that he can see his doctor because he wants his right hand evaluated. Router Machine Operator told patient that he will not be discharged and film writer will order xray of his right hand. Patient stated that he will be leaving AMA if he is not discharged. Objective: 03/07/17 16:34 Last Vital Signs Temp Pulse Resp BP Pulse Ox 98.8 F 100 H 18 145/96 03/07/17 14:10 03/07/17 14:10 03/07/17 14:10 03/07/17 14:10 PE: right hand mild swelling, no discoloration Laboratory Tests 03/04/17 03/05/17 03/05/17 15:44 07:40 07:40 WBC 4.8 RBC 3.99 L Hgb 12.8 Hct 38.9 MCV 97.4 H MCH 32.0 MCHC 32.8 RDW 14.2 Plt Count 156 D MPV 9.2 Sodium 142 Potassium 3.8 Chloride 107 Carbon Dioxide 24 Anion Gap 11 BUN 16 D Creatinine 0.9 Creat Clearance w eGFR > 60 Random Glucose 87 Calcium 9.0 Total Bilirubin 0.7 D AST 14 L D ALT 24 Alkaline Phosphatase 69 Total Protein 6.8 Albumin 3.7 Urine Color Emily Urine Appearance Cloudy Urine pH 5.0 D Ur Specific [place] 1.025 Urine Protein 2+ H Urine Glucose (UA) Negative Urine Ketones Negative Urine Blood Negative Urine Nitrite Negative Urine Bilirubin Negative Urine Urobilinogen Negative Urine RBC 1 Urine WBC 2 Calcium Oxalate Crystal Moderate Urine Bacteria Rare Hyaline Casts 7 Granular Casts 28 Urine Mucus Few RPR Titer 03/05/17 03/05/17 07:40 15:00 WBC RBC Hgb Hct MCV MCH MCHC RDW Plt Count MPV Sodium Potassium Chloride Carbon Dioxide Anion Gap BUN Creatinine Creat Clearance w eGFR Random Glucose Calcium Total Bilirubin AST ALT Alkaline Phosphatase Total Protein Albumin Urine Color Yellow Urine Appearance Clear Urine pH 6.0 Ur Specific [place] 1.025 Urine Protein Negative Urine Glucose (UA) Negative Urine Ketones Negative Urine Blood Negative Urine Nitrite Negative Urine Bilirubin Negative Urine Urobilinogen 1.0 Urine RBC Urine WBC Calcium Oxalate Crystal Urine Bacteria Hyaline Casts Granular Casts Urine Mucus RPR Titer Nonreactive Labs noted Assessment: 03/07/17 16:35 Withdrawal symptoms Right hand swelling/discomfort Plan: Continue detox Right hand swelling/discomfort: xray right hand in AM
[2017-03-07] MEDS: ATORVASTATIN CA 40 MG TABLET (FP) PO SCH (22:18)
[2017-03-07] MEDS: diphenhydrAMINE HCL 50 MG CAPSULE PO PRN (22:18)
[2017-03-07] MEDS: chlordiazePOXIDE HCL 10 MG CAPSULE PO SCH (22:18)
[2017-03-07] MEDS: THIAMINE HCL 100 MG TABLET (FP) PO SCH (22:18)
[2017-03-08] MEDS: chlordiazePOXIDE HCL 10 MG CAPSULE PO SCH (05:14)
--- NOTE | 2017-03-08 09:15 | DS ---
[facility] Detox Discharge Summary Admission Date: 03/04/17 Discharge Date: 03/08/17 - History Present History: Alcohol Dependence Pertinent Past History: HTN, insomnai, anxiety, depression, nicotine dependence - Physical Exam Results Vital Signs: Vital Signs Temperature 97 F L 03/08/17 06:23 Pulse Rate 104 H 03/08/17 06:23 Respiratory Rate 18 03/08/17 06:23 Blood Pressure 128/88 03/08/17 06:23 O2 Sat by Pulse Oximetry (%) Laboratory Tests 03/04/17 03/05/17 03/05/17 15:44 07:40 07:40 WBC 4.8 RBC 3.99 L Hgb 12.8 Hct 38.9 MCV 97.4 H MCH 32.0 MCHC 32.8 RDW 14.2 Plt Count 156 D MPV 9.2 Sodium 142 Potassium 3.8 Chloride 107 Carbon Dioxide 24 Anion Gap 11 BUN 16 D Creatinine 0.9 Creat Clearance w eGFR > 60 Random Glucose 87 Calcium 9.0 Total Bilirubin 0.7 D AST 14 L D ALT 24 Alkaline Phosphatase 69 Total Protein 6.8 Albumin 3.7 Urine Color Emily Urine Appearance Cloudy Urine pH 5.0 D Ur Specific [place] 1.025 Urine Protein 2+ H Urine Glucose (UA) Negative Urine Ketones Negative Urine Blood Negative Urine Nitrite Negative Urine Bilirubin Negative Urine Urobilinogen Negative Urine RBC 1 Urine WBC 2 Calcium Oxalate Crystal Moderate Urine Bacteria Rare Hyaline Casts 7 Granular Casts 28 Urine Mucus Few RPR Titer 03/05/17 03/05/17 07:40 15:00 WBC RBC Hgb Hct MCV MCH MCHC RDW Plt Count MPV Sodium Potassium Chloride Carbon Dioxide Anion Gap BUN Creatinine Creat Clearance w eGFR Random Glucose Calcium Total Bilirubin AST ALT Alkaline Phosphatase Total Protein Albumin Urine Color Yellow Urine Appearance Clear Urine pH 6.0 Ur Specific [place] 1.025 Urine Protein Negative Urine Glucose (UA) Negative Urine Ketones Negative Urine Blood Negative Urine Nitrite Negative Urine Bilirubin Negative Urine Urobilinogen 1.0 Urine RBC Urine WBC Calcium Oxalate Crystal Urine Bacteria Hyaline Casts Granular Casts Urine Mucus RPR Titer Nonreactive Pertinent Admission Physical Exam Findings: withdrawal sx - Treatment Hospital Course: Detox Protocol Followed, Detoxed Safely, Responded well, Discharged Condition Good, Rehab Referral Accepted - Medication Discharge Medications: Ambulatory Orders Amlodipine Besylate [Norvasc -] 10 mg PO DAILY #30 tablet 01/06/17 Aspirin [ASA -] 81 mg PO DAILY #30 tab.chew 01/06/17 Atorvastatin Ca [Lipitor] 80 mg PO HS #30 tab 01/06/17 Hydrochlorothiazide [Hctz -] 12.5 mg PO DAILY #30 tab 01/06/17 Lisinopril [Prinivil] 5 mg PO DAILY #30 tablet 01/06/17 - Diagnosis (1) Alcohol dependence with uncomplicated withdrawal Current Visit: No Status: Acute (2) Major depressive disorder, single episode in full remission Current Visit: Yes Status: Chronic (3) Nicotine dependence Current Visit: Yes Status: Chronic Qualifiers: Nicotine product type: cigarettes Substance use status: uncomplicated Qualified Code(s): F17.210 - Nicotine dependence, cigarettes, uncomplicated (4) Opioid dependence with withdrawal Current Visit: Yes Status: Inactive (5) Substance induced mood disorder Current Visit: Yes Status: Acute (6) Essential hypertension Current Visit: Yes Status: Chronic (7) GERD (gastroesophageal reflux disease) Current Visit: Yes Status: Chronic Qualifiers: Esophagitis presence: without esophagitis Qualified Code(s): K21.9 - Gastro-esophageal reflux disease without esophagitis (8) Elevated cholesterol Current Visit: Yes Status: Chronic - AMA Did Patient Leave Against Medical Advice: No
[2017-03-08 09:18] VITALS: BP 143/99; PULSE 93; TEMP 97.2
== END 2017-03-08 09:45 | disposition home or self-care (01) | DRG 773 ==
LOC: YASAS 10:20 → Y3N 17:01
PROVIDERS: ADMIT Internal Medicine; ATTEND Internal Medicine
PROC: HZ2ZZZZ Detoxification Services for Substance Abuse Treatment (ICD-10-PCS; principal; 2017-03-04)
DX: F11.23 Opioid dependence with withdrawal (principal); F10.230 Alcohol dependence with withdrawal, uncomplicated; F17.210 Nicotine dependence, cigarettes, uncomplicated; F32.5 Major depressive disorder, single episode, in full remission; F19.24 Other psychoactive substance dependence with psychoactive substance-induced mood disorder; I10 Essential (primary) hypertension; I25.2 Old myocardial infarction; K21.9 Gastro-esophageal reflux disease without esophagitis; E86.0 Dehydration; E78.00 Pure hypercholesterolemia, unspecified; M79.89 Other specified soft tissue disorders; Z86.73 Personal history of transient ischemic attack (TIA), and cerebral infarction without residual deficits; Z86.79 Personal history of other diseases of the circulatory system; Z59.0 Homelessness
CPT/HCPCS: 36415; 80053; 81003; 81015; 85027; 86593; 93005; 93010

== ENCOUNTER 2017-05-26 11:10 | Inpatient (IN) | payer OTHER ==
[2017-05-26 12:21] VITALS: BMI 25.8
[2017-05-26] MEDS ORDERED: hydrOXYzine PAMOATE 50 MG CAPSULE (FP) PO PRN (16:46)
[2017-05-26] MEDS ORDERED: MAG HYDROX/AL HYDROX/SIMETH 30 ML UNIT-DOSE CUP PO PRN (16:46)
[2017-05-26] MEDS ORDERED: guaiFENesin/D-METHORPHAN HB 10 ML UNIT-DOSE CUPS PO PRN (16:46)
[2017-05-26] MEDS ORDERED: NICOTINE POLACRILEX 2 MG GUM BC PRN (16:46)
[2017-05-26] MEDS ORDERED: ACETAMINOPHEN 325 MG TABLET (FP) PO PRN (16:46)
[2017-05-26] MEDS ORDERED: MAGNESIUM HYDROX 2400MG/30ML ORAL SUSPENSION 30 ML CUP PO PRN (16:46)
[2017-05-26] MEDS ORDERED: LOPERAMIDE HCL 2 MG CAPSULE PO PRN (16:46)
[2017-05-26] MEDS ORDERED: chlordiazePOXIDE HCL 25 MG CAPSULE PO PRN (16:46)
[2017-05-26] MEDS ORDERED: MENTHOL/PHENOL 1 EACH UD MM PRN (16:46)
[2017-05-26] MEDS ORDERED: P-EPHED 60MG/TRIPROLIDI 2.5MG TABLET PO PRN (16:46)
[2017-05-26] MEDS ORDERED: MAGNESIUM CITRATE 300 ML BOTTLE PO PRN (16:46)
--- NOTE | 2017-05-26 16:56 | HP ---
CIWA Score - CIWA Score Nausea/Vomitin Muscle Tremors: 3 Anxiety: 3 Agitation: 3 Paroxysmal Sweats: 3 Orientation: 0-Oriented Tacttile Disturbances: 1-Very Mild Itch/Numbness Auditory Disturbances: 0-None Visual Disturbances: 0-None Headache: 1-Very Mild CIWA-Ar Total Score: 17 Admission ROS S - [facility] Chief Complaint: alcohol withdrawal sx Allergies/Adverse Reactions: Allergies Allergy/AdvReac Type Severity Reaction Status Date / Time No Known Allergies Allergy Verified 05/26/17 16:24 History of Present Illness: 56 yo m with h/ochronic alcoholism admitted for inpatient detoxifciation from alcohol because he develops FABIAN when he does not drink, was sober for 12 years, relapsed to heavy drinking last few weeks beause he separtted from his . multiple meical comorbidities including HTN, elevated cholesterol, depression but not taking any medications. no h/o seizures/ no DTs. Had heart attack many years ago while smoking crack but denies all recent illicit drug use at this time. Exam Limitations: No Limitations - Ebola screening Have you traveled outside of the country in the last 21 days: No Have you had contact with anyone from an Ebola affected area: No Have you been sick,other than usual withdrawal symptoms: No Do you have a fever: No - Review of Systems Constitutional: Chills, Diaphoresis, Weakness, Unintentional Wgt. Loss EENT: reports: Blurred Vision, Tearing Respiratory: reports: No Symptoms reported Cardiac: reports: No Symptoms Reported GI: reports: Nausea, Poor Appetite, Poor Fluid Intake, Indigestion, Abdominal cramping : reports: No Symptoms Reported Musculoskeletal: reports: No Symptoms Reported Integumentary: reports: Flushing, Sweating Neuro: reports: Headache, Numbness, Paresthesia, Tingling, Tremors, Weakness Endocrine: reports: Increased Thirst Hematology: reports: No Symptoms Reported Psychiatric: reports: Judgement Intact, Mood/Affect Appropiate, Orientated x3, Anxious, Depressed, Disorientated Other Systems: Reviewed and Negative Patient History - Patient Medical History Hx Anemia: No Hx Asthma: No Hx Chronic Obstructive Pulmonary Disease (COPD): No Hx Cancer: No Hx Cardiac Disorders: No Hx Congestive Heart Failure: No Hx Hypertension: Yes Hx Hypercholesterolemia: Yes Hx Pacemaker: No HX Cerebrovascular Accident: No Hx Seizures: No Hx Dementia: No Hx Diabetes: No Hx Gastrointestinal Disorders: No Hx Liver Disease: No Hx Genitourinary Disorders: No Hx Sexually Transmitted Disorders: No Hx Renal Disease (ESRD): No Hx Thyroid Disease: No Hx Human Immunodeficiency Virus (HIV): No (NEGATIVE 08/28) Hx Hepatitis C: No Hx Depression: Yes (no medications) Hx Suicide Attempt: No (no si at this time) Hx Bipolar Disorder: No Hx Schizophrenia: No Other Medical History: relapsed 3 years ago after sober x 12 years - Patient Surgical History Past Surgical History: Yes Hx Neurologic Surgery: No Hx Cataract Extraction: No Hx Cardiac Surgery: No Hx Lung Surgery: No Hx Breast Surgery: No Hx Breast Biopsy: No Hx Abdominal Surgery: No Hx Appendectomy: No Hx Cholecystectomy: No Hx Genitourinary Surgery: No Hx Orthopedic Surgery: No Hx Hysterectomy: No Other Surgical History: incision and drainage of abscess of right groin, healed Anesthesia Reaction: No - PPD History Previous Implant?: No Documented Results: Negative w/o proof Implanted On Prior R Admission?: No Results: CXR neg 10/28/16 PPD to be Administered?: Yes - Reproductive History Patient is a Female of Child Bearing Age (11 -55 yrs old): No Patient : No - Smoking Cessation Smoking history: Current every day smoker Have you smoked in the past 12 months: Yes Aproximately how many cigarettes per day: 30 Hx Chewing Tobacco Use: No Initiated information on smoking cessation: Yes 'Breaking Loose' booklet given: 05/26/17 - Substance & Tx. History Hx Alcohol Use: Yes Hx Substance Use: No Substance Use Type: Alcohol Hx Substance Use Treatment: Yes ([facility]) - Substances Abused ALCOHOL-BEER/RUM/VODKA/WHISKY Route: Oral Frequency: Daily Amount used: 4-6 PTS/ 3PKS Age of first use: 18 Date of Last Use: 05/25/17 Family Disease History - Family Disease History Family Disease History: Other: Father (HTN-), Mother (HTN-) Admission Physical Exam BHS - Vital Signs Vital Signs: Vital Signs - 24 hr 05/26/17 12:18 Temperature 99.1 F Pulse Rate 115 H Respiratory 20 Rate Blood Pressure 147/9 - Physical General Appearance: Yes: Nourished, Appropriately Dressed, Disheveled, Mild Distress, Tremorous, Irritable, Sweating, Anxious HEENTM: Yes: Within Normal Limits, EOMI, Hearing grossly Normal, Normal ENT Inspection, Normocephalic, Normal Voice, LIEN, Pharynx Normal Respiratory: Yes: Within Normal Limits, Chest Non-Tender, Lungs Clear, Normal Breath Sounds, No Respiratory Distress, No Accessory Muscle Use Neck: Yes: Within Normal Limits, No masses,lesions,Nodules, Supple, Trachea in good position Breast: Yes: Breast Exam Deferred Cardiology: Yes: Within Normal Limits, Regular Rhythm, Regular Rate, S1, S2 Abdominal: Yes: Normal Bowel Sounds, Non Tender, Flat, Soft, Increased Bowel Sounds Genitourinary: Yes: Within Normal Limits Back: Yes: Within Normal Limits, Normal Inspection Musculoskeletal: Yes: Within Normal Limits, full range of Motion, Gait Steady, Pelvis Stable Extremities: Yes: Normal Capillary Refill, Normal Range of Motion, Tremors Neurological: Yes: bartacker II-XII NML intact, Fully Oriented, Alert, Motor Strength 5/5, Normal Response, Depressed Affect Integumentary: Yes: Normal Color, Warm, Diaphoresis, Moist Lymphatic: Yes: Within Normal Limits - Addiitonal Findings: withdrawal sx - Diagnostic (1) Alcohol dependence with uncomplicated withdrawal Current Visit: No Status: Acute (2) Dehydration Current Visit: No Status: Acute (3) Nicotine dependence Current Visit: No Status: Acute Qualifiers: (4) Substance induced mood disorder Current Visit: No Status: Acute (5) Elevated cholesterol Current Visit: No Status: Chronic (6) Essential hypertension Current Visit: No Status: Chronic (7) GERD (gastroesophageal reflux disease) Current Visit: No Status: Chronic Qualifiers: (8) Major depressive disorder, single episode in full remission Current Visit: No Status: Chronic Cleared for Admission [facility] - Detox or Rehab [facility] Level of Care: Medically Managed Detox Regimen/Protocol: Librium [facility] Breath Alcohol Content Breath Alcohol Content: 0 Urine Drug Screen - Results Drug Screen Negative: No Urine Drug Screen Results: BZO-Benzodiazepines
[2017-05-26] MEDS ORDERED: chlordiazePOXIDE HCL 25 MG CAPSULE PO ONE (17:45)
[2017-05-26] MEDS: ASPIRIN 81 MG CHEWABLE TABLETS PO SCH (18:46)
[2017-05-26] MEDS: LISINOPRIL 5 MG TABLET (FP) PO SCH (18:46)
[2017-05-26] MEDS: amLODIPine BESYLATE 10 MG TABLET (FP) PO SCH (18:46)
[2017-05-26] MEDS: NICOTINE 21 MG/24 HOURS TOPICAL PATCH TD SCH (18:47)
--- NOTE | 2017-05-26 18:54 | PN ---
S Progress Note Note: RECEIVED NURSE CALL THAT THE PATIENT HAS POSITIVE PPD NEEDS CHEST X RAY CHART REVIEWED CHEST X RAY 04/[address] 04/2017 NEGATIVE FINDING CONTINUE DETOX
[2017-05-26] MEDS: ZOLPIDEM TARTRATE 10 MG TABLET (PARK CARE ONLY) PO PRN (22:24)
[2017-05-26] MEDS: THIAMINE HCL 100 MG TABLET (FP) PO SCH (22:24)
[2017-05-26] MEDS: ATORVASTATIN CA 40 MG TABLET (FP) PO SCH (22:24)
[2017-05-26] MEDS: chlordiazePOXIDE HCL 25 MG CAPSULE PO SCH (22:24)
[2017-05-26 23:12] LABS: URINE APPEARANCE CLEAR; URINE BILIRUBIN 1+ (NEGATIVE); URINE BLOOD NEGATIVE (NEGATIVE); URINE COLOR YELLOW; URINE GLUCOSE (UA) NEGATIVE (NEGATIVE); URINE KETONE 1+ (NEGATIVE); URINE LEUK ESTERASE NEGATIVE (NEGATIVE); URINE NITRITE NEGATIVE (NEGATIVE); URINE PROTEIN NEGATIVE (NEGATIVE)
[2017-05-27] MEDS: chlordiazePOXIDE HCL 25 MG CAPSULE PO SCH ×4 (06:30→22:16)
[2017-05-27] MEDS: ASPIRIN 81 MG CHEWABLE TABLETS PO SCH (09:27)
[2017-05-27] MEDS: NICOTINE 21 MG/24 HOURS TOPICAL PATCH TD SCH (09:27)
[2017-05-27] MEDS: amLODIPine BESYLATE 10 MG TABLET (FP) PO SCH (09:27)
[2017-05-27] MEDS: LISINOPRIL 5 MG TABLET (FP) PO SCH (09:27)
[2017-05-27] MEDS: PRENATAL VITAMINS W/ FOLIC ACID TABLET (FP) PO SCH (09:27)
[2017-05-27 10:03] LABS: MCH 32.8 pg (25.7-33.7); MCHC 33.3 g/dl (32.0-35.9); MEAN CELL VOLUME 98.3 fl (80-96); MEAN PLT VOLUME 9.6 fl (7.5-11.1); PLATELET COUNT 220 K/MM3 (134-434); RDW 14.4 % (11.9-15.9); WHITE BLOOD COUNT 5.7 K/mm3 (4.0-10.0)
[2017-05-27 10:22] LABS: ALBUMIN 4.1 g/dl (3.4-5.0); ALK PHOS 74 U/L (45-117); ANION GAP 11 (8-16); CALCIUM 9.6 mg/dL (8.5-10.1); CO2 27 mmol/L (21-32); CREATININE 0.9 mg/dL (0.7-1.3); GLUCOSE,RANDOM 77 mg/dL (74-106); SGOT/AST 20 U/L (15-37); SGPT/ALT 32 U/L (12-78); TOT PROT 7.8 g/dl (6.4-8.2)
--- NOTE | 2017-05-27 10:22 | CONSULT ---
[facility] Psychiatric Consult - Data Date of interview: 05/27/17 Admission source: [facility] Identifying data: Pt. is a 56 year old single male, father of seven, unemployed and currently homeless. This [facility] Pt. admitted to for alcohol dependene. Substance Abuse History: Following information confirmed with Mr. Painting: Smoking Cessation. Smoking history: Current every day smoker. Have you smoked in the past 12 months: Yes. Aproximately how many cigarettes per day: 30. - Substances Abused. ALCOHOL-BEER/RUM/VODKA/WHISKY. Route: Oral. Frequency: Daily. Amount used: 4-6 PTS/ 3PKS. Age of first use: 18. Date of Last Use: Medical History: Hypertension, hypercholesterolemia, cardiac disorder ( h/o myocardial infarction) Psychiatric History: Pt. is a poor historian. Pt. reports one past psychiatric hospitalization " about 10 years ago" at [facility] and was on the medication lithium. States he has not taken lithium since his hospitalization. As per Dr. Brandon entry on 01/04/2017, patent has a PPH at [facility] and as per Dr. ascencio entry of 12/07/2016 patient was maintained on a regimen of haldol and lithium while at [facility]. Pt. denies h/o suicide attempts. Physical/Sexual Abuse/Trauma History: Pt. denies. Additional Comment: Urine Drug Screen Results: BZO-Benzodiazepines. Mental Status Exam - Mental Status Exam Alert and Oriented to: Time, Place, Person Cognitive Function: Fair Patient Appearance: Unkempt Mood: Withdrawn Affect: Flat Patient Behavior: Sedated, Asleep (Able to answer questions when awaken but minimizing information. ) Speech Pattern: Delayed Voice Loudness: Moderately Soft/Quiet Thought Process: Goal Oriented Thought Disorder: Not Present Hallucinations: Denies Suicidal Ideation: Denies Homicidal Ideation: Denies Insight/Judgement: Poor Sleep: Fair Appetite: Fair Muscle strength/Tone: Normal Gait/Station: Normal Psychiatric Findings - Problem List ([place] 1, 2,3) (1) Alcohol dependence with uncomplicated withdrawal Current Visit: Yes Status: Acute (2) Sedative hypnotic or anxiolytic dependence Current Visit: Yes Status: Acute Comment: Pt. drug screen positive for benzodiazepines. (3) Nicotine dependence Current Visit: Yes Status: Chronic Qualifiers: Nicotine product type: cigarettes Substance use status: in withdrawal Qualified Code(s): F17.213 - Nicotine dependence, cigarettes, with withdrawal (4) Substance induced mood disorder Current Visit: No Status: Suspected - Initial Treatment Plan Initial Treatment Plan: Psychoeducation provided. Detox in progress. Will continue to monitor
--- NOTE | 2017-05-27 11:40 | EKG ---
Test Reason : Blood Pressure : / mmHG Vent. Rate : 091 BPM Atrial Rate : 091 BPM P-R Int : 128 ms QRS Dur : 086 ms QT Int : 380 ms P-R-T Axes : 079 -61 056 degrees QTc Int : 467 ms NORMAL SINUS RHYTHM POSSIBLE LEFT ATRIAL ENLARGEMENT LEFT ANTERIOR FASCICULAR BLOCK ABNORMAL ECG WHEN COMPARED WITH ECG OF 12-APR-2017 18:54, NO SIGNIFICANT CHANGE WAS FOUND Confirmed by COLTON GILL, MARIELLE ([id number]) on 05/27/2017 11:39:44 AM Referred By: Confirmed By:MARIELLE SEGURA MD
[2017-05-27 11:58] LABS: URINE LEUK ESTERASE Negative (NEGATIVE)
[2017-05-27] MEDS ORDERED: PNEUMOC 13-VAL CONJ-DIP CRM/PF 0.5 ML DISP.SYRIN IM ONE (12:00)
--- NOTE | 2017-05-27 12:31 | PN ---
[facility] CIWA - CIWA Score Nausea/Vomitin-No Nausea/No Vomiting Muscle Tremors: 4-Moderate,w/Arms Extend Anxiety: 4-Mod. Anxious/Guarded Agitation: 4-Moderately Restless Paroxysmal Sweats: 1-Minimal Palms Moist Orientation: 0-Oriented Tacttile Disturbances: 3-Moderate Itch/Numb/Burn Auditory Disturbances: 0-None Visual Disturbances: 0-None Headache: 0-None Present CIWA-Ar Total Score: 16 BHS Progress Note (SOAP) Subjective: TREMORS,A ANXIETY,SWEATS,FATIGUE. Objective: 05/27/17 12:32 Vital Signs 05/27/17 05/27/17 06:24 09:38 Temperature 96.8 F L 100.1 F H Pulse Rate 79 106 H Respiratory 18 18 Rate Blood Pressure 127/78 124/89 Laboratory Last Values WBC 5.7 K/mm3 (4.0-10.0) 05/27/17 05:45 RBC 4.77 M/mm3 (4.00-5.60) 05/27/17 05:45 Hgb 15.6 GM/dL (11.7-16.9) D 05/27/17 05:45 Hct 46.9 % (35.4-49) D 05/27/17 05:45 MCV 98.3 fl (80-96) H 05/27/17 05:45 MCH 32.8 pg (25.7-33.7) 05/27/17 05:45 MCHC 33.3 g/dl (32.0-35.9) 05/27/17 05:45 RDW 14.4 % (11.9-15.9) 05/27/17 05:45 Plt Count 220 K/MM3 (134-434) D 05/27/17 05:45 MPV 9.6 fl (7.5-11.1) 05/27/17 05:45 Sodium 140 mmol/L (136-145) 05/27/17 05:45 Potassium 3.7 mmol/L (3.5-5.1) 05/27/17 05:45 Chloride 102 mmol/L (98-107) 05/27/17 05:45 Carbon Dioxide 27 mmol/L (21-32) 05/27/17 05:45 Anion Gap 11 (8-16) 05/27/17 05:45 BUN 10 mg/dL (7-18) 05/27/17 05:45 Creatinine 0.9 mg/dL (0.7-1.3) 05/27/17 05:45 Creat Clearance w eGFR > 60 (>60) 05/27/17 05:45 Random Glucose 77 mg/dL (74-106) 05/27/17 05:45 Calcium 9.6 mg/dL (8.5-10.1) 05/27/17 05:45 Total Bilirubin 1.0 mg/dL (0.2-1.0) D 05/27/17 05:45 AST 20 U/L (15-37) D 05/27/17 05:45 ALT 32 U/L (12-78) D 05/27/17 05:45 Alkaline Phosphatase 74 U/L (45-117) 05/27/17 05:45 Total Protein 7.8 g/dl (6.4-8.2) 05/27/17 05:45 Albumin 4.1 g/dl (3.4-5.0) D 05/27/17 05:45 Urine Color Yellow 05/26/17 21:00 Urine Appearance Clear 05/26/17 21:00 Urine pH 7.0 (5.0-8.0) 05/26/17 21:00 Ur Specific [place] 1.010 (1.001-1.035) 05/26/17 21:00 Urine Protein Negative (NEGATIVE) 05/26/17 21:00 Urine Glucose (UA) Negative (NEGATIVE) 05/26/17 21:00 Urine Ketones 1+ (NEGATIVE) H 05/26/17 21:00 Urine Blood Negative (NEGATIVE) 05/26/17 21:00 Urine Nitrite Negative (NEGATIVE) 05/26/17 21:00 Urine Bilirubin 1+ (NEGATIVE) H 05/26/17 21:00 Urine Urobilinogen 1.0 mg/dL (0.2-1.0) 05/26/17 21:00 Ur Leukocyte Esterase Negative (NEGATIVE) 05/26/17 21:00 RPR Titer Nonreactive (NONREACTIVE) 05/27/17 05:45 Assessment: 05/27/17 12:33 WITHDRAWAL SX Plan: CONTINUE DETOX INCREASE PO FLUIDS.
[2017-05-27] MEDS: ATORVASTATIN CA 40 MG TABLET (FP) PO SCH (22:16)
[2017-05-27] MEDS: THIAMINE HCL 100 MG TABLET (FP) PO SCH (22:16)
[2017-05-27] MEDS: ZOLPIDEM TARTRATE 10 MG TABLET (PARK CARE ONLY) PO PRN (22:17)
[2017-05-28] MEDS: chlordiazePOXIDE HCL 25 MG CAPSULE PO SCH ×3 (06:11→18:05)
[2017-05-28] MEDS ORDERED: LIDOCAINE VISCOUS 2% ORAL/TOP 20 ML UNIT-DOSE CUP MM PRN (09:38)
[2017-05-28] MEDS: PRENATAL VITAMINS W/ FOLIC ACID TABLET (FP) PO SCH (10:45)
[2017-05-28] MEDS: LISINOPRIL 5 MG TABLET (FP) PO SCH (10:45)
[2017-05-28] MEDS: ASPIRIN 81 MG CHEWABLE TABLETS PO SCH (10:45)
[2017-05-28] MEDS: NICOTINE 21 MG/24 HOURS TOPICAL PATCH TD SCH (10:45)
[2017-05-28] MEDS: amLODIPine BESYLATE 10 MG TABLET (FP) PO SCH (10:45)
[2017-05-28] MEDS: IBUPROFEN 400 MG TABLET (FP) PO PRN (10:46)
--- NOTE | 2017-05-28 11:28 | PN ---
[facility] CIWA - CIWA Score Nausea/Vomitin-No Nausea/No Vomiting Muscle Tremors: 4-Moderate,w/Arms Extend Anxiety: 4-Mod. Anxious/Guarded Agitation: 4-Moderately Restless Paroxysmal Sweats: 1-Minimal Palms Moist Orientation: 0-Oriented Tacttile Disturbances: 3-Moderate Itch/Numb/Burn Auditory Disturbances: 0-None Visual Disturbances: 0-None Headache: 0-None Present CIWA-Ar Total Score: 16 S Progress Note (SOAP) Subjective: ANXIETY,SWEATS/CHILLS,IRRITABILITY,GUM/TOOTH ACHE, Objective: 05/28/17 11:28 Vital Signs Temperature 98.2 F 05/28/17 10:35 Pulse Rate 100 H 05/28/17 10:35 Respiratory Rate 18 05/28/17 10:35 Blood Pressure 146/100 05/28/17 10:35 O2 Sat by Pulse Oximetry (%) Laboratory Last Values WBC 5.7 K/mm3 (4.0-10.0) 05/27/17 05:45 RBC 4.77 M/mm3 (4.00-5.60) 05/27/17 05:45 Hgb 15.6 GM/dL (11.7-16.9) D 05/27/17 05:45 Hct 46.9 % (35.4-49) D 05/27/17 05:45 MCV 98.3 fl (80-96) H 05/27/17 05:45 MCH 32.8 pg (25.7-33.7) 05/27/17 05:45 MCHC 33.3 g/dl (32.0-35.9) 05/27/17 05:45 RDW 14.4 % (11.9-15.9) 05/27/17 05:45 Plt Count 220 K/MM3 (134-434) D 05/27/17 05:45 MPV 9.6 fl (7.5-11.1) 05/27/17 05:45 Sodium 140 mmol/L (136-145) 05/27/17 05:45 Potassium 3.7 mmol/L (3.5-5.1) 05/27/17 05:45 Chloride 102 mmol/L (98-107) 05/27/17 05:45 Carbon Dioxide 27 mmol/L (21-32) 05/27/17 05:45 Anion Gap 11 (8-16) 05/27/17 05:45 BUN 10 mg/dL (7-18) 05/27/17 05:45 Creatinine 0.9 mg/dL (0.7-1.3) 05/27/17 05:45 Creat Clearance w eGFR > 60 (>60) 05/27/17 05:45 Random Glucose 77 mg/dL (74-106) 05/27/17 05:45 Calcium 9.6 mg/dL (8.5-10.1) 05/27/17 05:45 Total Bilirubin 1.0 mg/dL (0.2-1.0) D 05/27/17 05:45 AST 20 U/L (15-37) D 05/27/17 05:45 ALT 32 U/L (12-78) D 05/27/17 05:45 Alkaline Phosphatase 74 U/L (45-117) 05/27/17 05:45 Total Protein 7.8 g/dl (6.4-8.2) 05/27/17 05:45 Albumin 4.1 g/dl (3.4-5.0) D 05/27/17 05:45 Urine Color Yellow 05/26/17 21:00 Urine Appearance Clear 05/26/17 21:00 Urine pH 7.0 (5.0-8.0) 05/26/17 21:00 Ur Specific [place] 1.010 (1.001-1.035) 05/26/17 21:00 Urine Protein Negative (NEGATIVE) 05/26/17 21:00 Urine Glucose (UA) Negative (NEGATIVE) 05/26/17 21:00 Urine Ketones 1+ (NEGATIVE) H 05/26/17 21:00 Urine Blood Negative (NEGATIVE) 05/26/17 21:00 Urine Nitrite Negative (NEGATIVE) 05/26/17 21:00 Urine Bilirubin 1+ (NEGATIVE) H 05/26/17 21:00 Urine Urobilinogen 1.0 mg/dL (0.2-1.0) 05/26/17 21:00 Ur Leukocyte Esterase Negative (NEGATIVE) 05/26/17 21:00 RPR Titer Nonreactive (NONREACTIVE) 05/27/17 05:45 Assessment: 05/28/17 11:28 WITHDRAWAL SX Plan: CONTINUE DETOX VISCOUS LIDOCAINE DIRECTED.
[2017-05-28] MEDS: ZOLPIDEM TARTRATE 10 MG TABLET (PARK CARE ONLY) PO PRN (23:02)
[2017-05-28] MEDS: THIAMINE HCL 100 MG TABLET (FP) PO SCH (23:02)
[2017-05-28] MEDS: chlordiazePOXIDE 5 MG CAPSULE PO SCH (23:03)
[2017-05-28] MEDS: ATORVASTATIN CA 40 MG TABLET (FP) PO SCH (23:03)
[2017-05-29] MEDS: chlordiazePOXIDE 5 MG CAPSULE PO SCH ×3 (05:41→17:03)
[2017-05-29] MEDS: NICOTINE 21 MG/24 HOURS TOPICAL PATCH TD SCH (10:35)
[2017-05-29] MEDS: LISINOPRIL 5 MG TABLET (FP) PO SCH (10:35)
[2017-05-29] MEDS: ASPIRIN 81 MG CHEWABLE TABLETS PO SCH (10:35)
[2017-05-29] MEDS: amLODIPine BESYLATE 10 MG TABLET (FP) PO SCH (10:35)
[2017-05-29] MEDS: PRENATAL VITAMINS W/ FOLIC ACID TABLET (FP) PO SCH (10:35)
--- NOTE | 2017-05-29 15:44 | PN ---
BHS Progress Note (SOAP) Subjective: Diarrhea, H/A, Body Aches, Sweating, Tremors. Objective: PT. A & O X 2 (UNCERTAIN ABOUT DAY/ DATE). PT. OBSERVED AMBULATING ON UNIT. NO ACUTE DISTRESS. 05/29/17 15:42 Vital Signs Temperature 98.1 F 05/29/17 13:49 Pulse Rate 92 H 05/29/17 13:49 Respiratory Rate 18 05/29/17 13:49 Blood Pressure 138/93 05/29/17 13:49 O2 Sat by Pulse Oximetry (%) Laboratory Tests 05/26/17 05/27/17 05/27/17 21:00 05:45 05:45 WBC 5.7 RBC 4.77 Hgb 15.6 D Hct 46.9 D MCV 98.3 H MCH 32.8 MCHC 33.3 RDW 14.4 Plt Count 220 D MPV 9.6 Sodium 140 Potassium 3.7 Chloride 102 Carbon Dioxide 27 Anion Gap 11 BUN 10 Creatinine 0.9 Creat Clearance w eGFR > 60 Random Glucose 77 Calcium 9.6 Total Bilirubin 1.0 D AST 20 D ALT 32 D Alkaline Phosphatase 74 Total Protein 7.8 Albumin 4.1 D Urine Color Yellow Urine Appearance Clear Urine pH 7.0 Ur Specific [place] 1.010 Urine Protein Negative Urine Glucose (UA) Negative Urine Ketones 1+ H Urine Blood Negative Urine Nitrite Negative Urine Bilirubin 1+ H Urine Urobilinogen 1.0 Ur Leukocyte Esterase Negative RPR Titer 05/27/17 05:45 WBC RBC Hgb Hct MCV MCH MCHC RDW Plt Count MPV Sodium Potassium Chloride Carbon Dioxide Anion Gap BUN Creatinine Creat Clearance w eGFR Random Glucose Calcium Total Bilirubin AST ALT Alkaline Phosphatase Total Protein Albumin Urine Color Urine Appearance Urine pH Ur Specific [place] Urine Protein Urine Glucose (UA) Urine Ketones Urine Blood Urine Nitrite Urine Bilirubin Urine Urobilinogen Ur Leukocyte Esterase RPR Titer Nonreactive LABS NOTED. Assessment: 05/29/17 15:43 WITHDRAWAL SYMPTOMS. Plan: CONTINUE DETOX.
[2017-05-29] MEDS: IBUPROFEN 400 MG TABLET (FP) PO PRN (19:06)
[2017-05-29] MEDS: ATORVASTATIN CA 40 MG TABLET (FP) PO SCH (22:29)
[2017-05-29] MEDS: chlordiazePOXIDE HCL 10 MG CAPSULE PO SCH (22:29)
[2017-05-29] MEDS: THIAMINE HCL 100 MG TABLET (FP) PO SCH (22:29)
[2017-05-30] MEDS: chlordiazePOXIDE HCL 10 MG CAPSULE PO SCH ×2 (05:34→10:28)
[2017-05-30 09:59] VITALS: BP 151/98; PULSE 84; TEMP 97.3
[2017-05-30] MEDS: amLODIPine BESYLATE 10 MG TABLET (FP) PO SCH (10:28)
[2017-05-30] MEDS: PRENATAL VITAMINS W/ FOLIC ACID TABLET (FP) PO SCH (10:28)
[2017-05-30] MEDS: NICOTINE 21 MG/24 HOURS TOPICAL PATCH TD SCH (10:28)
[2017-05-30] MEDS: ASPIRIN 81 MG CHEWABLE TABLETS PO SCH (10:28)
[2017-05-30] MEDS: LISINOPRIL 5 MG TABLET (FP) PO SCH (10:28)
[2017-05-30] MEDS: IBUPROFEN 400 MG TABLET (FP) PO PRN (12:14)
--- NOTE | 2017-05-30 15:00 | DS ---
[facility] Detox Discharge Summary Admission Date: 05/26/17 Discharge Date: 05/30/17 - History Present History: Alcohol Dependence Pertinent Past History: HTN HLD GERD - Physical Exam Results Vital Signs: Vital Signs Temperature 97.3 F L 05/30/17 09:58 Pulse Rate 84 05/30/17 09:58 Respiratory Rate 19 05/30/17 09:58 Blood Pressure 151/98 05/30/17 09:58 O2 Sat by Pulse Oximetry (%) Pertinent Admission Physical Exam Findings: Withdrawal symptoms Laboratory Tests 05/26/17 05/27/17 05/27/17 21:00 05:45 05:45 WBC 5.7 RBC 4.77 Hgb 15.6 D Hct 46.9 D MCV 98.3 H MCH 32.8 MCHC 33.3 RDW 14.4 Plt Count 220 D MPV 9.6 Sodium 140 Potassium 3.7 Chloride 102 Carbon Dioxide 27 Anion Gap 11 BUN 10 Creatinine 0.9 Creat Clearance w eGFR > 60 Random Glucose 77 Calcium 9.6 Total Bilirubin 1.0 D AST 20 D ALT 32 D Alkaline Phosphatase 74 Total Protein 7.8 Albumin 4.1 D Urine Color Yellow Urine Appearance Clear Urine pH 7.0 Ur Specific [place] 1.010 Urine Protein Negative Urine Glucose (UA) Negative Urine Ketones 1+ H Urine Blood Negative Urine Nitrite Negative Urine Bilirubin 1+ H Urine Urobilinogen 1.0 Ur Leukocyte Esterase Negative RPR Titer 05/27/17 05:45 WBC RBC Hgb Hct MCV MCH MCHC RDW Plt Count MPV Sodium Potassium Chloride Carbon Dioxide Anion Gap BUN Creatinine Creat Clearance w eGFR Random Glucose Calcium Total Bilirubin AST ALT Alkaline Phosphatase Total Protein Albumin Urine Color Urine Appearance Urine pH Ur Specific [place] Urine Protein Urine Glucose (UA) Urine Ketones Urine Blood Urine Nitrite Urine Bilirubin Urine Urobilinogen Ur Leukocyte Esterase RPR Titer Nonreactive Labs noted - Treatment Hospital Course: Detox Protocol Followed, Detoxed Safely, Responded well, Discharged Condition Good, Rehab Referral Accepted - Medication Discharge Medications: Ambulatory Orders Amlodipine Besylate [Norvasc -] 10 mg PO DAILY #30 tablet 04/16/17 Aspirin [ASA -] 81 mg PO DAILY #30 tab.chew 04/16/17 Atorvastatin Ca [Lipitor] 80 mg PO HS #30 tab 04/16/17 Hydrochlorothiazide [Hctz -] 12.5 mg PO DAILY #30 tab 04/16/17 Lisinopril [Prinivil] 5 mg PO DAILY #30 tablet 04/16/17 - Diagnosis (1) Alcohol dependence with uncomplicated withdrawal Status: Acute (2) Essential hypertension Status: Chronic (3) GERD (gastroesophageal reflux disease) Status: Chronic Qualifiers: Esophagitis presence: esophagitis presence not specified Qualified Code(s) : K21.9 - Gastro-esophageal reflux disease without esophagitis (4) Major depressive disorder, single episode in full remission Status: Chronic (5) Nicotine dependence Status: Chronic Qualifiers: Nicotine product type: cigarettes Substance use status: in withdrawal Qualified Code(s): F17.213 - Nicotine dependence, cigarettes, with withdrawal (6) Elevated cholesterol Status: Chronic - AMA Did Patient Leave Against Medical Advice: No (F/U with PCP within 1-2 weeks after rehab)
== END 2017-05-30 14:33 | disposition other institution (70) | DRG 775 ==
LOC: YASAS 11:10 → Y3N 15:19
PROVIDERS: ADMIT Internal Medicine; ATTEND Internal Medicine
PROC: HZ2ZZZZ Detoxification Services for Substance Abuse Treatment (ICD-10-PCS; principal; 2017-05-26)
DX: F10.230 Alcohol dependence with withdrawal, uncomplicated (principal); F17.213 Nicotine dependence, cigarettes, with withdrawal; F33.1 Major depressive disorder, recurrent, moderate; F19.24 Other psychoactive substance dependence with psychoactive substance-induced mood disorder; I10 Essential (primary) hypertension; E78.5 Hyperlipidemia, unspecified; K21.9 Gastro-esophageal reflux disease without esophagitis; E86.0 Dehydration
CPT/HCPCS: 36415; 80053; 81003; 85027; 86593; 93005; 93010

== ENCOUNTER 2017-05-30 15:09 | Inpatient (IN) | payer OTHER ==
[2017-05-30] MEDS ORDERED: guaiFENesin/D-METHORPHAN HB 10 ML UNIT-DOSE CUPS PO PRN (15:46)
[2017-05-30] MEDS ORDERED: MAGNESIUM HYDROX 2400MG/30ML ORAL SUSPENSION 30 ML CUP PO PRN (15:46)
[2017-05-30] MEDS ORDERED: ACETAMINOPHEN 325 MG TABLET (FP) PO PRN (15:46)
[2017-05-30] MEDS ORDERED: MAG HYDROX/AL HYDROX/SIMETH 30 ML UNIT-DOSE CUP PO PRN (15:46)
[2017-05-30] MEDS ORDERED: MAGNESIUM CITRATE 300 ML BOTTLE PO PRN (15:46)
[2017-05-30] MEDS ORDERED: MENTHOL/PHENOL 1 EACH UD MM PRN (15:46)
[2017-05-30] MEDS ORDERED: P-EPHED 60MG/TRIPROLIDI 2.5MG TABLET PO PRN (15:46)
[2017-05-30] MEDS ORDERED: LOPERAMIDE HCL 2 MG CAPSULE PO PRN (15:46)
--- NOTE | 2017-05-30 15:53 | HP ---
[facility] Rehab Assess/Revision - Admission History Admitted to Rehab from: [facility] Date of Admission to Rehab: 05/30/17 - Vital signs Vital Signs: Vital Signs Period Temp Pulse Resp BP Sys/Sánchez Pulse Ox Last 24 Hr 98.3 F 110 18 139/87 - Findings Detox History & Physical reviewed: Yes Concur with findings: Yes Comments/Additional Findings: FOR REHAB PROTOCOL Inpatient Rehab Admission - Initial Determination Are CD services needed?: Yes Free of communicable disease: Yes Not in need of hospitalization: Yes - Rehab Admission Criteria Previous failed treatment: Yes Poor recovery environment: Yes Comorbidities: Yes Patient is meeting Inpatient Rehab admission criteria:: Yes
[2017-05-30] MEDS ORDERED: ATORVASTATIN CA 40 MG TABLET (FP) ONE (20:05)
[2017-05-30] MEDS: IBUPROFEN 400 MG TABLET (FP) PO PRN (20:12)
[2017-05-30] MEDS: ATORVASTATIN CA 80 MG TABLET (FP) PO SCH (21:46)
[2017-05-30] MEDS: THIAMINE HCL 100 MG TABLET (FP) PO SCH (21:46)
[2017-05-30] MEDS: hydrOXYzine PAMOATE 50 MG CAPSULE (FP) PO PRN (21:47)
[2017-05-31] MEDS: hydrOXYzine PAMOATE 50 MG CAPSULE (FP) PO PRN ×2 (09:35→21:49)
[2017-05-31] MEDS: HYDROCHLOROTHIAZIDE 12.5 MG CAPSULE (FP) PO SCH (10:32)
[2017-05-31] MEDS: LISINOPRIL 5 MG TABLET (FP) PO SCH (10:32)
[2017-05-31] MEDS: PRENATAL VITAMINS W/ FOLIC ACID TABLET (FP) PO SCH (10:32)
[2017-05-31] MEDS: NICOTINE 21 MG/24 HOURS TOPICAL PATCH TD SCH (10:32)
[2017-05-31] MEDS: ASPIRIN 81 MG CHEWABLE TABLETS PO SCH (10:32)
[2017-05-31] MEDS: amLODIPine BESYLATE 10 MG TABLET (FP) PO SCH (10:32)
--- NOTE | 2017-05-31 11:32 | HP ---
Psychiatrist Admission - Data Date of interview: 05/31/17 Admission source: [address] [place] [address] Identifying data: This is the first admission to [address] [place] [address] for this 56 years old AA male Vital Signs: Vital Signs - 24 hr 05/30/17 05/30/17 05/31/17 15:24 16:00 00:30 Temperature 98.3 F 98.3 F Pulse Rate 110 H 115 H Respiratory 18 18 18 Rate Blood Pressure 139/87 139/87 05/31/17 05/31/17 05/31/17 03:30 06:50 10:00 Temperature 97.3 F L Pulse Rate 86 86 Respiratory 18 18 20 Rate Blood Pressure 134/93 141/90 Allergies/Adverse Reactions: Allergies Allergy/AdvReac Type Severity Reaction Status Date / Time No Known Allergies Allergy Verified 05/30/17 15:12 Date of last physical exam: 05/30/17 Concur with the findings of this exam: Yes - Substance Abuse/Tx History Hx Alcohol Use: Yes Hx Substance Use: Yes Substance Use Type: Alcohol Hx Substance Use Treatment: Yes Psychiatric Findings - Problem List ([place] 1, 2,3) (1) Sedative hypnotic or anxiolytic dependence Current Visit: Yes Status: Acute Comment: Pt. drug screen positive for benzodiazepines. (2) Essential hypertension Current Visit: Yes Status: Chronic (3) GERD (gastroesophageal reflux disease) Current Visit: Yes Status: Chronic Qualifiers: (4) Nicotine dependence Current Visit: Yes Status: Chronic Qualifiers: - Initial Treatment Plan Initial Treatment Plan: Will monitor progress.
[2017-05-31] MEDS: IBUPROFEN 400 MG TABLET (FP) PO PRN (13:35)
--- NOTE | 2017-05-31 13:57 | HP ---
Psychiatrist Admission - Data Date of interview: 05/31/17 Admission source: [address] [place] [address] detox Identifying data: This is the first admission to [address] [place] [address] rehabilitation for this 56 years old AA male father of 7,homeless, supported by PA. Medical History: HTN,Hyperlipidemia,H/O CVA,GERD and MA. Psychiatric History: Patient is poor and unreliable historian giving different information about his psychiatric history.he reports long and extensive psychiatric history started in late 80th.He was dx with Schizoaffective disorder.He reports a few psychiatric admissions including 1 year in [facility].Patient obtains his medications from local ER ,recently from [facility].He was on Haldol,then on Seroquel,[place].No history of suicidality. Physical/Sexual Abuse/Trauma History: denies Vital Signs: Vital Signs - 24 hr 05/30/17 05/30/17 05/31/17 15:24 16:00 00:30 Temperature 98.3 F 98.3 F Pulse Rate 110 H 115 H Respiratory 18 18 18 Rate Blood Pressure 139/87 139/87 05/31/17 05/31/17 05/31/17 03:30 06:50 10:00 Temperature 97.3 F L Pulse Rate 86 86 Respiratory 18 18 20 Rate Blood Pressure 134/93 141/90 Allergies/Adverse Reactions: Allergies Allergy/AdvReac Type Severity Reaction Status Date / Time No Known Allergies Allergy Verified 05/30/17 15:12 Date of last physical exam: 05/30/17 Concur with the findings of this exam: Yes - Substance Abuse/Tx History Hx Alcohol Use: Yes (reports drinking since 14 yo,heavy since his wive 4 yo ) Hx Substance Use: Yes (cocaine used in HS,stopped 5 yo,marijuana stopped 6 yo) Substance Use Type: Alcohol, Cocaine, Marijuana Hx Substance Use Treatment: Yes (completed 28 inpatient rehab in 2017,relapsed after d/c) Mental Status Exam - Mental Status Exam Alert and Oriented to: Time, Place, Person Cognitive Function: Grossly Intact Patient Appearance: Unkempt Mood: Sad Affect: Mood Congruent, Labile Patient Behavior: Cooperative Speech Pattern: Clear Voice Loudness: Normal Thought Process: Goal Oriented Thought Disorder: Being Controlled Hallucinations: Denies Suicidal Ideation: Denies Homicidal Ideation: Denies Insight/Judgement: Fair Sleep: Difficulty falling asleep Appetite: Good Muscle strength/Tone: Normal Gait/Station: Normal Psychiatric Findings - Problem List ([place] 1, 2,3) (1) Sedative hypnotic or anxiolytic dependence Current Visit: Yes Status: Acute Comment: Pt. drug screen positive for benzodiazepines. (2) Essential hypertension Current Visit: Yes Status: Chronic (3) GERD (gastroesophageal reflux disease) Current Visit: Yes Status: Chronic Qualifiers: (4) Nicotine dependence Current Visit: Yes Status: Chronic Qualifiers: (5) Alcohol dependence Current Visit: Yes Status: Chronic (6) Elevated cholesterol Current Visit: Yes Status: Chronic (7) Schizoaffective disorder, depressive type Current Visit: Yes Status: Chronic - Initial Treatment Plan Initial Treatment Plan: Restart Seroquel 100 mg po hs.Will monitor progress.
--- NOTE | 2017-05-31 14:50 | PN ---
S Progress Note (SOAP) Subjective: cap fell off tooth , now c/o dental pain Objective: 05/31/17 14:49 Vital Signs - 8 hr 05/31/17 05/31/17 06:50 10:00 Temperature 97.3 F L Pulse Rate 86 86 Respiratory 18 20 Rate Blood Pressure 134/93 141/90 labs reviewed, no sign of infection Assessment: 05/31/17 14:49 start pain meications, naprosyn and MMR/protonix.
[2017-05-31] MEDS: PANTOPRAZOLE 40 MG TABLET (FP) PO SCH (16:55)
[2017-05-31] MEDS: LIDOCAINE VISCOUS 2% ORAL/TOP 100 ML BOTTLE MM PRN (16:57)
[2017-05-31] MEDS ORDERED: ATORVASTATIN CA 40 MG TABLET (FP) ONE (19:08)
[2017-05-31] MEDS: ATORVASTATIN CA 80 MG TABLET (FP) PO SCH (21:48)
[2017-05-31] MEDS: NAPROXEN 500 MG TABLET (FP) PO SCH (21:48)
[2017-05-31] MEDS: THIAMINE HCL 100 MG TABLET (FP) PO SCH (21:48)
[2017-05-31] MEDS: QUEtiapine FUMARATE 100 MG TABLET (FP) PO SCH (21:48)
[2017-06-01] MEDS: ASPIRIN 81 MG CHEWABLE TABLETS PO SCH (09:26)
[2017-06-01] MEDS: HYDROCHLOROTHIAZIDE 12.5 MG CAPSULE (FP) PO SCH (09:26)
[2017-06-01] MEDS: LISINOPRIL 5 MG TABLET (FP) PO SCH (09:26)
[2017-06-01] MEDS: NAPROXEN 500 MG TABLET (FP) PO SCH ×2 (09:26→21:30)
[2017-06-01] MEDS: PANTOPRAZOLE 40 MG TABLET (FP) PO SCH (09:26)
[2017-06-01] MEDS: PRENATAL VITAMINS W/ FOLIC ACID TABLET (FP) PO SCH (09:26)
[2017-06-01] MEDS: amLODIPine BESYLATE 10 MG TABLET (FP) PO SCH (09:27)
[2017-06-01] MEDS: NICOTINE 21 MG/24 HOURS TOPICAL PATCH TD SCH (09:27)
[2017-06-01] MEDS: IBUPROFEN 400 MG TABLET (FP) PO PRN (17:33)
[2017-06-01] MEDS: LIDOCAINE VISCOUS 2% ORAL/TOP 100 ML BOTTLE MM PRN (17:34)
[2017-06-01] MEDS: ATORVASTATIN CA 80 MG TABLET (FP) PO SCH (21:30)
[2017-06-01] MEDS: THIAMINE HCL 100 MG TABLET (FP) PO SCH (21:30)
[2017-06-01] MEDS: QUEtiapine FUMARATE 100 MG TABLET (FP) PO SCH (21:30)
[2017-06-02] MEDS: HYDROCHLOROTHIAZIDE 12.5 MG CAPSULE (FP) PO SCH (10:36)
[2017-06-02] MEDS: NAPROXEN 500 MG TABLET (FP) PO SCH ×2 (10:36→21:38)
[2017-06-02] MEDS: PANTOPRAZOLE 40 MG TABLET (FP) PO SCH (10:36)
[2017-06-02] MEDS: NICOTINE 21 MG/24 HOURS TOPICAL PATCH TD SCH (10:36)
[2017-06-02] MEDS: PRENATAL VITAMINS W/ FOLIC ACID TABLET (FP) PO SCH (10:36)
[2017-06-02] MEDS: ASPIRIN 81 MG CHEWABLE TABLETS PO SCH (10:36)
[2017-06-02] MEDS: amLODIPine BESYLATE 10 MG TABLET (FP) PO SCH (10:36)
[2017-06-02] MEDS: LISINOPRIL 5 MG TABLET (FP) PO SCH (10:36)
[2017-06-02] MEDS: LIDOCAINE VISCOUS 2% ORAL/TOP 100 ML BOTTLE MM PRN ×2 (10:37→21:40)
[2017-06-02] MEDS: QUEtiapine FUMARATE 100 MG TABLET (FP) PO SCH (21:39)
[2017-06-02] MEDS: THIAMINE HCL 100 MG TABLET (FP) PO SCH (21:39)
[2017-06-02] MEDS: ATORVASTATIN CA 80 MG TABLET (FP) PO SCH (21:39)
[2017-06-02] MEDS: hydrOXYzine PAMOATE 50 MG CAPSULE (FP) PO PRN (21:40)
[2017-06-03] MEDS: HYDROCHLOROTHIAZIDE 12.5 MG CAPSULE (FP) PO SCH (10:37)
[2017-06-03] MEDS: NAPROXEN 500 MG TABLET (FP) PO SCH ×2 (10:37→22:08)
[2017-06-03] MEDS: ASPIRIN 81 MG CHEWABLE TABLETS PO SCH (10:37)
[2017-06-03] MEDS: PRENATAL VITAMINS W/ FOLIC ACID TABLET (FP) PO SCH (10:37)
[2017-06-03] MEDS: PANTOPRAZOLE 40 MG TABLET (FP) PO SCH (10:37)
[2017-06-03] MEDS: NICOTINE 21 MG/24 HOURS TOPICAL PATCH TD SCH (10:38)
[2017-06-03] MEDS: amLODIPine BESYLATE 10 MG TABLET (FP) PO SCH (10:38)
[2017-06-03] MEDS: LISINOPRIL 5 MG TABLET (FP) PO SCH (10:38)
[2017-06-03] MEDS: THIAMINE HCL 100 MG TABLET (FP) PO SCH (22:08)
[2017-06-03] MEDS: ATORVASTATIN CA 80 MG TABLET (FP) PO SCH (22:08)
[2017-06-03] MEDS: QUEtiapine FUMARATE 100 MG TABLET (FP) PO SCH (22:09)
[2017-06-04] MEDS: PRENATAL VITAMINS W/ FOLIC ACID TABLET (FP) PO SCH (10:35)
[2017-06-04] MEDS: HYDROCHLOROTHIAZIDE 12.5 MG CAPSULE (FP) PO SCH (10:35)
[2017-06-04] MEDS: PANTOPRAZOLE 40 MG TABLET (FP) PO SCH (10:35)
[2017-06-04] MEDS: ASPIRIN 81 MG CHEWABLE TABLETS PO SCH (10:35)
[2017-06-04] MEDS: NAPROXEN 500 MG TABLET (FP) PO SCH ×2 (10:36→21:44)
[2017-06-04] MEDS: LISINOPRIL 5 MG TABLET (FP) PO SCH (10:36)
[2017-06-04] MEDS: amLODIPine BESYLATE 10 MG TABLET (FP) PO SCH (10:36)
[2017-06-04] MEDS: NICOTINE 21 MG/24 HOURS TOPICAL PATCH TD SCH (10:37)
[2017-06-04] MEDS ORDERED: ATORVASTATIN CA 40 MG TABLET (FP) ONE (19:55)
[2017-06-04] MEDS: QUEtiapine FUMARATE 100 MG TABLET (FP) PO SCH (21:44)
[2017-06-04] MEDS: THIAMINE HCL 100 MG TABLET (FP) PO SCH (21:44)
[2017-06-04] MEDS: ATORVASTATIN CA 80 MG TABLET (FP) PO SCH (21:44)
[2017-06-05] MEDS: NICOTINE 21 MG/24 HOURS TOPICAL PATCH TD SCH (10:47)
[2017-06-05] MEDS: LISINOPRIL 5 MG TABLET (FP) PO SCH (10:48)
[2017-06-05] MEDS: PRENATAL VITAMINS W/ FOLIC ACID TABLET (FP) PO SCH (10:48)
[2017-06-05] MEDS: ASPIRIN 81 MG CHEWABLE TABLETS PO SCH (10:48)
[2017-06-05] MEDS: PANTOPRAZOLE 40 MG TABLET (FP) PO SCH (10:48)
[2017-06-05] MEDS: HYDROCHLOROTHIAZIDE 12.5 MG CAPSULE (FP) PO SCH (10:49)
[2017-06-05] MEDS: NAPROXEN 500 MG TABLET (FP) PO SCH ×2 (10:49→21:34)
[2017-06-05] MEDS: amLODIPine BESYLATE 10 MG TABLET (FP) PO SCH (10:49)
[2017-06-05] MEDS: ATORVASTATIN CA 80 MG TABLET (FP) PO SCH (21:34)
[2017-06-05] MEDS: THIAMINE HCL 100 MG TABLET (FP) PO SCH (21:34)
[2017-06-05] MEDS: QUEtiapine FUMARATE 100 MG TABLET (FP) PO SCH (21:34)
[2017-06-06] MEDS: amLODIPine BESYLATE 10 MG TABLET (FP) PO SCH (10:19)
[2017-06-06] MEDS: HYDROCHLOROTHIAZIDE 12.5 MG CAPSULE (FP) PO SCH (10:19)
[2017-06-06] MEDS: LISINOPRIL 5 MG TABLET (FP) PO SCH (10:19)
[2017-06-06] MEDS: PRENATAL VITAMINS W/ FOLIC ACID TABLET (FP) PO SCH (10:19)
[2017-06-06] MEDS: NICOTINE 21 MG/24 HOURS TOPICAL PATCH TD SCH (10:19)
[2017-06-06] MEDS: PANTOPRAZOLE 40 MG TABLET (FP) PO SCH (10:19)
[2017-06-06] MEDS: ASPIRIN 81 MG CHEWABLE TABLETS PO SCH (10:19)
[2017-06-06] MEDS: NAPROXEN 500 MG TABLET (FP) PO SCH ×2 (10:19→21:39)
[2017-06-06] MEDS: ATORVASTATIN CA 80 MG TABLET (FP) PO SCH (21:39)
[2017-06-06] MEDS: THIAMINE HCL 100 MG TABLET (FP) PO SCH (21:39)
[2017-06-06] MEDS: QUEtiapine FUMARATE 100 MG TABLET (FP) PO SCH (21:39)
[2017-06-06] MEDS: hydrOXYzine PAMOATE 50 MG CAPSULE (FP) PO PRN (21:40)
[2017-06-07] MEDS: LISINOPRIL 5 MG TABLET (FP) PO SCH (10:38)
[2017-06-07] MEDS: HYDROCHLOROTHIAZIDE 12.5 MG CAPSULE (FP) PO SCH (10:38)
[2017-06-07] MEDS: PRENATAL VITAMINS W/ FOLIC ACID TABLET (FP) PO SCH (10:38)
[2017-06-07] MEDS: ASPIRIN 81 MG CHEWABLE TABLETS PO SCH (10:38)
[2017-06-07] MEDS: PANTOPRAZOLE 40 MG TABLET (FP) PO SCH (10:38)
[2017-06-07] MEDS: NAPROXEN 500 MG TABLET (FP) PO SCH ×2 (10:38→21:45)
[2017-06-07] MEDS: NICOTINE 21 MG/24 HOURS TOPICAL PATCH TD SCH (10:39)
[2017-06-07] MEDS: amLODIPine BESYLATE 10 MG TABLET (FP) PO SCH (10:39)
[2017-06-07] MEDS: THIAMINE HCL 100 MG TABLET (FP) PO SCH (21:45)
[2017-06-07] MEDS: ATORVASTATIN CA 80 MG TABLET (FP) PO SCH (21:45)
[2017-06-07] MEDS: QUEtiapine FUMARATE 100 MG TABLET (FP) PO SCH (21:45)
[2017-06-07] MEDS: hydrOXYzine PAMOATE 50 MG CAPSULE (FP) PO PRN (21:46)
[2017-06-08] MEDS: PANTOPRAZOLE 40 MG TABLET (FP) PO SCH (10:24)
[2017-06-08] MEDS: LISINOPRIL 5 MG TABLET (FP) PO SCH (10:24)
[2017-06-08] MEDS: HYDROCHLOROTHIAZIDE 12.5 MG CAPSULE (FP) PO SCH (10:24)
[2017-06-08] MEDS: ASPIRIN 81 MG CHEWABLE TABLETS PO SCH (10:24)
[2017-06-08] MEDS: NAPROXEN 500 MG TABLET (FP) PO SCH ×2 (10:24→21:57)
[2017-06-08] MEDS: PRENATAL VITAMINS W/ FOLIC ACID TABLET (FP) PO SCH (10:24)
[2017-06-08] MEDS: amLODIPine BESYLATE 10 MG TABLET (FP) PO SCH (10:24)
[2017-06-08] MEDS: NICOTINE 21 MG/24 HOURS TOPICAL PATCH TD SCH (10:25)
[2017-06-08] MEDS: THIAMINE HCL 100 MG TABLET (FP) PO SCH (21:56)
[2017-06-08] MEDS: ATORVASTATIN CA 80 MG TABLET (FP) PO SCH (21:57)
[2017-06-08] MEDS: QUEtiapine FUMARATE 100 MG TABLET (FP) PO SCH (21:57)
[2017-06-09] MEDS: ASPIRIN 81 MG CHEWABLE TABLETS PO SCH (10:33)
[2017-06-09] MEDS: NAPROXEN 500 MG TABLET (FP) PO SCH ×2 (10:33→21:39)
[2017-06-09] MEDS: LISINOPRIL 5 MG TABLET (FP) PO SCH (10:33)
[2017-06-09] MEDS: amLODIPine BESYLATE 10 MG TABLET (FP) PO SCH (10:33)
[2017-06-09] MEDS: HYDROCHLOROTHIAZIDE 12.5 MG CAPSULE (FP) PO SCH (10:33)
[2017-06-09] MEDS: NICOTINE 21 MG/24 HOURS TOPICAL PATCH TD SCH (10:34)
[2017-06-09] MEDS: PRENATAL VITAMINS W/ FOLIC ACID TABLET (FP) PO SCH (10:34)
[2017-06-09] MEDS: PANTOPRAZOLE 40 MG TABLET (FP) PO SCH (10:35)
[2017-06-09] MEDS: QUEtiapine FUMARATE 100 MG TABLET (FP) PO SCH (21:39)
[2017-06-09] MEDS: THIAMINE HCL 100 MG TABLET (FP) PO SCH (21:39)
[2017-06-09] MEDS: ATORVASTATIN CA 80 MG TABLET (FP) PO SCH (21:39)
[2017-06-10] MEDS: PANTOPRAZOLE 40 MG TABLET (FP) PO SCH (11:00)
[2017-06-10] MEDS: NICOTINE 21 MG/24 HOURS TOPICAL PATCH TD SCH (11:00)
[2017-06-10] MEDS: HYDROCHLOROTHIAZIDE 12.5 MG CAPSULE (FP) PO SCH (11:00)
[2017-06-10] MEDS: amLODIPine BESYLATE 10 MG TABLET (FP) PO SCH (11:00)
[2017-06-10] MEDS: PRENATAL VITAMINS W/ FOLIC ACID TABLET (FP) PO SCH (11:00)
[2017-06-10] MEDS: ASPIRIN 81 MG CHEWABLE TABLETS PO SCH (11:00)
[2017-06-10] MEDS: NAPROXEN 500 MG TABLET (FP) PO SCH ×2 (11:00→21:40)
[2017-06-10] MEDS: LISINOPRIL 5 MG TABLET (FP) PO SCH (11:18)
[2017-06-10] MEDS: ATORVASTATIN CA 80 MG TABLET (FP) PO SCH (21:40)
[2017-06-10] MEDS: QUEtiapine FUMARATE 100 MG TABLET (FP) PO SCH (21:40)
[2017-06-10] MEDS: THIAMINE HCL 100 MG TABLET (FP) PO SCH (21:40)
[2017-06-11] MEDS: PRENATAL VITAMINS W/ FOLIC ACID TABLET (FP) PO SCH (10:18)
[2017-06-11] MEDS: ASPIRIN 81 MG CHEWABLE TABLETS PO SCH (10:18)
[2017-06-11] MEDS: amLODIPine BESYLATE 10 MG TABLET (FP) PO SCH (10:18)
[2017-06-11] MEDS: NICOTINE 21 MG/24 HOURS TOPICAL PATCH TD SCH (10:19)
[2017-06-11] MEDS: LISINOPRIL 5 MG TABLET (FP) PO SCH (10:19)
[2017-06-11] MEDS: NAPROXEN 500 MG TABLET (FP) PO SCH ×2 (10:19→21:34)
[2017-06-11] MEDS: PANTOPRAZOLE 40 MG TABLET (FP) PO SCH (10:19)
[2017-06-11] MEDS: HYDROCHLOROTHIAZIDE 12.5 MG CAPSULE (FP) PO SCH (10:19)
[2017-06-11] MEDS: QUEtiapine FUMARATE 100 MG TABLET (FP) PO SCH (21:34)
[2017-06-11] MEDS: ATORVASTATIN CA 80 MG TABLET (FP) PO SCH (21:34)
[2017-06-11] MEDS: THIAMINE HCL 100 MG TABLET (FP) PO SCH (21:34)
[2017-06-12] MEDS: NICOTINE 21 MG/24 HOURS TOPICAL PATCH TD SCH (10:22)
[2017-06-12] MEDS: amLODIPine BESYLATE 10 MG TABLET (FP) PO SCH (10:22)
[2017-06-12] MEDS: PANTOPRAZOLE 40 MG TABLET (FP) PO SCH (10:22)
[2017-06-12] MEDS: HYDROCHLOROTHIAZIDE 12.5 MG CAPSULE (FP) PO SCH (10:22)
[2017-06-12] MEDS: LISINOPRIL 5 MG TABLET (FP) PO SCH (10:22)
[2017-06-12] MEDS: ASPIRIN 81 MG CHEWABLE TABLETS PO SCH (10:22)
[2017-06-12] MEDS: NAPROXEN 500 MG TABLET (FP) PO SCH ×2 (10:22→21:37)
[2017-06-12] MEDS: PRENATAL VITAMINS W/ FOLIC ACID TABLET (FP) PO SCH (10:23)
[2017-06-12] MEDS: THIAMINE HCL 100 MG TABLET (FP) PO SCH (21:37)
[2017-06-12] MEDS: QUEtiapine FUMARATE 100 MG TABLET (FP) PO SCH (21:37)
[2017-06-12] MEDS: ATORVASTATIN CA 80 MG TABLET (FP) PO SCH (21:37)
[2017-06-13] MEDS: HYDROCHLOROTHIAZIDE 12.5 MG CAPSULE (FP) PO SCH (09:55)
[2017-06-13] MEDS: PRENATAL VITAMINS W/ FOLIC ACID TABLET (FP) PO SCH (09:55)
[2017-06-13] MEDS: PANTOPRAZOLE 40 MG TABLET (FP) PO SCH (09:55)
[2017-06-13] MEDS: NAPROXEN 500 MG TABLET (FP) PO SCH ×2 (09:55→21:48)
[2017-06-13] MEDS: amLODIPine BESYLATE 10 MG TABLET (FP) PO SCH (09:55)
[2017-06-13] MEDS: LISINOPRIL 5 MG TABLET (FP) PO SCH (09:55)
[2017-06-13] MEDS: ASPIRIN 81 MG CHEWABLE TABLETS PO SCH (09:55)
[2017-06-13] MEDS: NICOTINE 21 MG/24 HOURS TOPICAL PATCH TD SCH (09:56)
[2017-06-13] MEDS: QUEtiapine FUMARATE 100 MG TABLET (FP) PO SCH (21:48)
[2017-06-13] MEDS: ATORVASTATIN CA 80 MG TABLET (FP) PO SCH (21:48)
[2017-06-13] MEDS: THIAMINE HCL 100 MG TABLET (FP) PO SCH (21:49)
[2017-06-14] MEDS: ASPIRIN 81 MG CHEWABLE TABLETS PO SCH (10:09)
[2017-06-14] MEDS: HYDROCHLOROTHIAZIDE 12.5 MG CAPSULE (FP) PO SCH (10:10)
[2017-06-14] MEDS: amLODIPine BESYLATE 10 MG TABLET (FP) PO SCH (10:10)
[2017-06-14] MEDS: NICOTINE 21 MG/24 HOURS TOPICAL PATCH TD SCH (10:10)
[2017-06-14] MEDS: NAPROXEN 500 MG TABLET (FP) PO SCH ×2 (10:10→21:37)
[2017-06-14] MEDS: LISINOPRIL 5 MG TABLET (FP) PO SCH (10:10)
[2017-06-14] MEDS: PRENATAL VITAMINS W/ FOLIC ACID TABLET (FP) PO SCH (10:10)
[2017-06-14] MEDS: PANTOPRAZOLE 40 MG TABLET (FP) PO SCH (10:12)
[2017-06-14] MEDS: ATORVASTATIN CA 80 MG TABLET (FP) PO SCH (21:37)
[2017-06-14] MEDS: THIAMINE HCL 100 MG TABLET (FP) PO SCH (21:37)
[2017-06-14] MEDS: QUEtiapine FUMARATE 100 MG TABLET (FP) PO SCH (21:37)
[2017-06-15 06:51] VITALS: TEMP 98
--- NOTE | 2017-06-15 09:46 | PN ---
Psychiatric Progress Note Vital Signs: Vital Signs Period Temp Pulse Resp BP Sys/Sánchez Pulse Ox Last 24 Hr 98.0 F 100 18-20 129/84 Date of Session: 06/15/17 Chief Complaint:: discharge visit HPI: Patient has addressed alcohol, sedative-hypnotic, nicotine dependence comorbid Schizoaffective disorder, depressed type. ROS: Hyperlipidemia, H/O CVA, GERD and [place] medically managed. Current Medications: Active Medications Generic Name Dose Route Start Last Admin Trade Name Freq PRN Reason Stop Dose Admin Acetaminophen 650 mg 05/30/17 15:46 Tylenol - PO Q4H PRN FEVER OR PAIN Al Hydroxide/Mg Hydroxide 30 ml 05/30/17 15:46 Mylanta Oral Suspension - PO Q6H PRN DYSPEPSIA Amlodipine Besylate 10 mg 05/31/17 10:00 06/14/17 10:10 Norvasc - PO 10 mg DAILY MILIND Administration Aspirin 81 mg 05/31/17 10:00 06/14/17 10:09 Asa - PO 81 mg DAILY MILIND Administration Atorvastatin Calcium 80 mg 05/30/17 22:00 06/14/17 21:37 Lipitor - PO 80 mg HS MILIND Administration Eucalyptus/Menthol/Phenol/Sorbitol 1 each 05/30/17 15:46 Cepastat Lozenge - MM Q4H PRN SORE THROAT Guaifenesin 10 ml 05/30/17 15:46 Robitussin Dm - PO Q6H PRN COUGH Hydrochlorothiazide 12.5 mg 05/31/17 10:00 06/14/17 10:10 Hctz - PO 12.5 mg DAILY MILIND Administration Hydroxyzine Pamoate 50 mg 05/30/17 15:46 06/07/17 21:46 Vistaril - PO 50 mg Q4H PRN Administration AGITATION Ibuprofen 400 mg 05/30/17 15:46 06/01/17 17:33 Motrin - PO 400 mg Q6H PRN Administration PAIN Lidocaine HCl 15 ml 05/31/17 14:46 06/02/17 21:40 Xylocaine 2% Viscous MM 15 ml Q6H PRN Administration PAIN Lisinopril 5 mg 05/31/17 10:00 06/14/17 10:10 Prinivil PO 5 mg DAILY MILIND Administration Loperamide HCl 4 mg 05/30/17 15:46 Imodium - PO Q6H PRN DIARRHEA Magnesium Citrate 300 ml 05/30/17 15:46 Citroma - PO Q48H PRN CONSTIPATION Magnesium Hydroxide 30 ml 05/30/17 15:46 Milk Of Magnesia - PO DAILY PRN CONSTIPATION Naproxen 500 mg 05/31/17 22:00 06/14/17 21:37 Naprosyn - PO 500 mg BID MILIND Administration Nicotine 21 mg 05/31/17 10:00 06/14/17 10:10 Nicoderm Patch - TD 21 mg DAILY MILIND Administration Pantoprazole Sodium 40 mg 05/31/17 15:29 06/14/17 10:12 Protonix - PO 40 mg DAILY MILIND Administration Multivit/Folic Acid/Iron 1 tab 05/31/17 10:00 06/14/17 10:10 Vitamins (Sjr) - PO 1 tab DAILY MILIND Administration Pseudoephedrine/Triprolidine 1 combo 05/30/17 15:46 Actifed - PO TID PRN NASAL CONGESTION Quetiapine Fumarate 100 mg 05/31/17 22:00 06/14/17 21:37 Seroquel - PO 100 mg HS MILIND Administration Thiamine HCl 100 mg 05/30/17 22:00 06/14/17 21:37 Vitamin B1 - PO 100 mg HS MILIND Administration Current Side Effect: No Lab tests ordered: No Lab tests reviewed: Yes Provider note:: Patient has completed today his treatment and met his goals, will continue to address his issues at [facility] opd, he gained insights into his addiction and motivated to continue maintain abstinence. Patient reports through this treatment he learned coping skills and importance to change attitudes and utilize all supports availble to prevent relapses. Seroquel 100 mg po hs well tolerated, patient reports he feels bettre, scripts for 30 days provided, patient is stable for discharge today. Total face to face time:: 20 Mental Status Exam - Mental Status Exam Alert and Oriented to: Time, Place, Person Cognitive Function: Good Mood: Hopeful Affect: Appropriate, Mood Congruent Patient Behavior: Appropriate, Cooperative Speech Pattern: Clear, Appropriate Voice Loudness: Normal Thought Process: Intact, Goal Oriented Thought Disorder: Not Present Hallucinations: Denies Suicidal Ideation: Denies Homicidal Ideation: Denies Insight/Judgement: Good Sleep: Well Appetite: Good Muscle strength/Tone: Normal Gait/Station: Normal Psychiatric Treatment Plan - Problem List (1) Sedative hypnotic or anxiolytic dependence Current Visit: Yes Comment: Pt. drug screen positive for benzodiazepines. (2) Alcohol dependence Current Visit: Yes (3) Nicotine dependence Current Visit: Yes Qualifiers: (4) Schizoaffective disorder, depressive type Current Visit: Yes
[2017-06-15] MEDS: ASPIRIN 81 MG CHEWABLE TABLETS PO SCH (10:23)
[2017-06-15] MEDS: HYDROCHLOROTHIAZIDE 12.5 MG CAPSULE (FP) PO SCH (10:24)
[2017-06-15] MEDS: amLODIPine BESYLATE 10 MG TABLET (FP) PO SCH (10:24)
[2017-06-15] MEDS: PRENATAL VITAMINS W/ FOLIC ACID TABLET (FP) PO SCH (10:24)
[2017-06-15] MEDS: LISINOPRIL 5 MG TABLET (FP) PO SCH (10:24)
[2017-06-15] MEDS: PANTOPRAZOLE 40 MG TABLET (FP) PO SCH (10:24)
[2017-06-15] MEDS: NAPROXEN 500 MG TABLET (FP) PO SCH (10:24)
[2017-06-15] MEDS: NICOTINE 21 MG/24 HOURS TOPICAL PATCH TD SCH (10:24)
[2017-06-15 11:16] VITALS: BP 141/94; PULSE 95
== END 2017-06-15 10:45 | disposition home or self-care (01) | DRG 772 ==
LOC: YASAS 15:09 → Y5N 15:11
PROVIDERS: ADMIT Psychiatry & Neurology Psychiatry; ATTEND Psychiatry & Neurology Psychiatry
PROC: HZ42ZZZ Group Counseling for Substance Abuse Treatment, Cognitive-Behavioral (ICD-10-PCS; principal; 2017-05-30)
DX: F13.20 Sedative, hypnotic or anxiolytic dependence, uncomplicated (principal); F10.20 Alcohol dependence, uncomplicated; F17.210 Nicotine dependence, cigarettes, uncomplicated; F25.1 Schizoaffective disorder, depressive type; I10 Essential (primary) hypertension; I25.2 Old myocardial infarction; E78.5 Hyperlipidemia, unspecified; K21.9 Gastro-esophageal reflux disease without esophagitis; Z86.73 Personal history of transient ischemic attack (TIA), and cerebral infarction without residual deficits